=== PATIENT | female | born 1970 | race Caucasian/White ===

== ENCOUNTER 2022-02-28 10:10 | Outpatient (CLI) | payer OTHER, SELFPAY ==
--- NOTE | ~2022-02-28 | US_ITS ---
US breast LT complete DATE: 02/28/2022 10:41 INDICATION: Left breast microcalcifications TECHNIQUE: Real-time imaging of complete left breast including all 4 quadrants and subareolar areas. COMPARISON: 01/07/2022 diagnostic left mammogram 11/24/2021 bilateral screening mammogram FINDINGS: The patient initially presented for stereotactic biopsy based upon mammogram examinations p erformed at [facility]. There are multiple clusters of grouped microcalcifications in the left breast, particularly in the ou ter mid left breast. These have the appearance of calcified fibroadenomas. In order to determine if there were any suspicious masses and to better determine which if any of the se clusters of microcalcifications to biopsy, ultrasound examination was requested and is herewith pe rformed and reported. No suspicious mass or suspicious shadowing is detected throughout the left breast. No circumscribed f ibroadenomas are identified. IMPRESSION: BI-RADS Category 4: Suspicious abnormality; biopsy should be considered Recommendation: I would recommend proceeding with stereotactic biopsy of some care support representative microcal cifications of the left breast Reviewed, dictated and finalized at [facility]. Reviewed, dictated and finalized at location A. TING AND PUMPING SUPERVISOR IMPRESSION: BI-RADS Category 4: Suspicious abnormality; biopsy should be consid ered Recommendation: I would recommend proceeding with stereotactic biopsy of some r epresentative microcalcifications of the left breast
== END 2022-02-28 10:11 | disposition home or self-care (01) ==
PROVIDERS: PCP Physician Assistant; Visit Provider Physician Assistant
DX: R92.8 Other abnormal and inconclusive findings on diagnostic imaging of breast (principal)
CPT/HCPCS: 76641

== ENCOUNTER 2022-03-12 11:13 | Outpatient (CLI) | payer OTHER, SELFPAY ==
--- NOTE | ~2022-03-12 | MM_ITS ---
EXAMINATION: MM stereotactic specimen LT, MM post biopsy diagnostic LT, MM stereotactic bx LT, Specim en Radiograph, Tissue Marker Clip Placement, Unilateral Mammogram DATE: 03/12/2022 13:07 (accession [id number]), 03/12/2022 13:06 (accession [id number]), 03/12 13:09 (accession [id number]) INDICATION: Abnormal mammogram: Indeterminate microcalcifications, lower outer quadrant. TECHNIQUE AND FINDINGS: The risks and potential benefits of the procedure were discussed with the patient and written informe d consent was obtained. Timeout procedure was performed. The patient was placed in the prone position on the dedicated stereotactic table with the left breast in lateral medial compression, and the area of interest was localized and targeted utilizing digital imaging with stereotaxis. After sterile preparation of the skin, 2 % lidocaine was utilized for local anesthesia at the skin pu ncture site and 2 % lidocaine with epinephrine was utilized for deeper local anesthesia/is about the biopsy site. A 9G RightScale vacuum assisted biopsy needle was advanced to the level of the calcification of interest from a lateral approach utilizing stereotactic guidance and a total of tissue core biops ies were obtained. A specimen radiograph demonstrates that the calcifications of interest are included within the tissue cores. A tissue marker clip was then placed at the biopsy site. A digital mammographic exposure co nfirmed the successful deployment of the biopsy marker. The needle was removed and hemostasis was ac hieved. A sterile bandage was applied. The patient tolerated the procedure well and there is no felisha dence of significant immediate complication. The patient was given verbal as well as written postpro cedural instructions prior to discharge from the department. Tissue cores were submitted to surgical pathology for histologic analysis. A 2-view right unilateral digital mammogram was obtained post procedure, demonstrating the tissue mar ker clip in expected position. IMPRESSION: 1. Successful stereotactic biopsy of indeterminate microcalcifications, lower outer left breast, fo llowed by tissue marker clip placement. Please refer to pathology report for histologic analysis. Reviewed, dictated and finalized at [facility]. Reviewed, dictated and finalized at location A. RMATION ANALYST IMPRESSION: 1. Successful stereotactic biopsy of indeterminate microcalcifications, lower outer left breast, followed by tissue marker clip placement. Please refer to pathology report for histologic analysis. IMPRESSION: 1. Successful stereotactic biopsy of indeterminate microcalcifications, lower outer left breast, followed by tissue marker clip placement. Please refer to pathology report for histologic analysis.
== END 2022-03-12 11:14 | disposition home or self-care (01) ==
PROVIDERS: PCP Physician Assistant; Visit Provider Physician Assistant
DX: N63.20 Unspecified lump in the left breast, unspecified quadrant (principal)
CPT/HCPCS: 19081; 77065; 88305; A4648

== ENCOUNTER 2022-07-19 08:57 | Outpatient (CLI) | payer OTHER, SELFPAY ==
--- NOTE | ~2022-07-19 | US_ITS ---
EXAMINATION: US abdomen limited DATE: 07/19/2022 09:22 INDICATION: Abnormal liver function tests. TECHNIQUE: Multiple grayscale and Doppler ultrasound images of the abdomen were obtained. COMPARISON: Abdomen ultrasound 04/11/2018 FINDINGS: The visualized portions of the head and body of the pancreas are normal. There is diffuse h epatic steatosis. No liver surface nodularity. There is normal flow in main portal vein. The gallblad ramos is normal in size. No gallstones or gallbladder wall thickening. There is no sonographic Narayan s ign. The common duct is normal and measures 3 mm. IMPRESSION: 1. Diffuse hepatic steatosis. Reviewed, dictated and finalized at location A.
== END 2022-07-19 08:58 | disposition home or self-care (01) ==
PROVIDERS: PCP Physician Assistant; Visit Provider Physician Assistant
DX: R74.8 Abnormal levels of other serum enzymes (principal); K76.0 Fatty (change of) liver, not elsewhere classified
CPT/HCPCS: 76705

== ENCOUNTER 2022-08-14 10:02 | Outpatient (CLI) | payer OTHER, SELFPAY ==
--- NOTE | ~2022-08-14 | US_ITS ---
US breast LT limited DATE: 08/14/2022 10:26 INDICATION: Six-month follow-up requested for 02/28/2022 left complete breast ultrasound examination TECHNIQUE: High-resolution ultrasound imaging of complete left breast including all 4 quadrants and s ubareolar area COMPARISON: 02/28/2022 complete left breast ultrasound 03/12/2022 stereotactic breast biopsy FINDINGS: Prominent ducts are again noted. No suspicious mass or shadowing, cyst or estimated sonogra phic abnormality is detected. IMPRESSION: BI-RADS Category 1: Negative Reviewed, dictated and finalized at [facility]. Reviewed, dictated and finalized at location A.
== END 2022-08-14 10:03 | disposition home or self-care (01) ==
PROVIDERS: PCP Physician Assistant; Visit Provider Physician Assistant
DX: R92.8 Other abnormal and inconclusive findings on diagnostic imaging of breast (principal)
CPT/HCPCS: 76642

== ENCOUNTER 2022-10-26 11:34 | Outpatient (CLI) | payer OTHER, SELFPAY ==
--- NOTE | ~2022-10-26 | XR_ITS ---
Right Hand Technique: PA, oblique, and lateral views were obtained. Clinical History: Pain Findings: No acute fracture or dislocation is seen. Osseous alignment is anatomic. Joint spaces are p reserved. Soft tissues are unremarkable. Impression: Unremarkable right hand. Reviewed, dictated and finalized at location M. Impression: Unremarkable right hand.
--- NOTE | ~2022-10-26 | XR_ITS ---
Left Hand Technique: PA, oblique, and lateral views were obtained. Clinical History: Pain Findings: No acute fracture or dislocation is seen. Osseous alignment is anatomic. Joint spaces are p reserved. Soft tissues are unremarkable. Impression: Unremarkable left hand. Reviewed, dictated and finalized at location M. Impression: Unremarkable left hand.
== END 2022-10-26 11:35 | disposition home or self-care (01) ==
PROVIDERS: PCP Physician Assistant; Visit Provider Physician Assistant
DX: M79.641 Pain in right hand (principal); M25.561 Pain in right knee
CPT/HCPCS: 73130; 73562

== ENCOUNTER 2022-11-15 09:35 | Outpatient (CLI) | payer OTHER, SELFPAY ==
--- NOTE | ~2022-11-15 | XR_ITS ---
Lumbosacral Spine: AP and lateral views Clinical History: Pain Findings: The normal lordotic curve is maintained. No fracture or subluxation evident. There is poste rior fusion from L4 to L5, with bilateral rods and transpedicular screws present. There is moderate t o advanced facet arthropathy from L3 through S1. The sacroiliac joints are normally outlined. Impression: Posterior fusion from L4 to L5, as detailed above. Facet joint arthropathy, as detailed above. Reviewed, dictated and finalized at location M. Impression: Posterior fusion from L4 to L5, as detailed above. Facet joint arthropathy, as detailed above.
== END 2022-11-15 09:36 | disposition home or self-care (01) ==
PROVIDERS: PCP Physician Assistant; Visit Provider Physician Assistant
DX: M48.061 Spinal stenosis, lumbar region without neurogenic claudication (principal); M47.816 Spondylosis without myelopathy or radiculopathy, lumbar region
CPT/HCPCS: 72100

== ENCOUNTER 2022-11-21 13:27 | Outpatient (CLI) | payer OTHER, SELFPAY ==
--- NOTE | ~2022-11-21 | MM_ITS ---
EXAMINATION: MM screening tosha BI w ozzie HISTORY: Screening mammogram, family history of breast cancer in her mother. TECHNIQUE: Craniocaudal and mediolateral oblique 3-D tomosynthesis images were obtained and synthetic 2-D images were generated. CAD analysis was submitted and interpreted. COMPARISON: 12/21/2021, 12/25/2017, 12/13/2017 BREAST PARENCHYMAL COMPOSITION: The breasts are extremely dense, which lowers the sensitivity of mamm ography. FINDINGS: Scattered benign-appearing calcifications are present. No suspicious mass, calcification, o r architectural distortion are identified in either breast to suggest malignancy. There has been no s uspicious interval change. IMPRESSION: 1. No mammographic evidence of malignancy. 2. Recommend routine screening mammography in one year. BI-RADS Category 2: Benign finding(s). Reviewed, dictated and finalized at location A.
== END 2022-11-21 13:28 | disposition home or self-care (01) ==
LOC: ANHIMG 13:29
PROVIDERS: PCP Physician Assistant; Visit Provider Physician Assistant
DX: Z12.31 Encounter for screening mammogram for malignant neoplasm of breast (principal)
CPT/HCPCS: 77063; 77067

== ENCOUNTER 2023-01-25 10:54 | Outpatient (CLI) | payer OTHER, SELFPAY ==
--- NOTE | ~2023-01-25 | CT_ITS ---
EXAMINATION: CT lumbar spine wo con DATE: 01/25/2023 12:42 INDICATION: Lumbar radiculopathy. TECHNIQUE: Computed tomography (CT) of the lumbar spine was performed without intravenous contrast. A utomated exposure control and iterative reconstruction technique were employed. The dose-length produ ct was 685.83 mGy-cm. COMPARISON: Lumbar spine radiographs 11/15/2022 FINDINGS: Bone alignment is normal. There is mild chronic anterior wedging of T11 and L5 vertebral machelle dies. There are changes of posterior fusion procedure L4-L5 with pedicle screws. Intervertebral disc heights are normal. The following disc levels are specifically discussed: L1-L2: The disc does not extend beyond the endplate margin. There is mild bilateral facet joint osteo arthritis. There is no neural foraminal stenosis. There is no central canal stenosis. L2-L3: The disc is bulging. There is moderate bilateral facet joint osteoarthritis. There is mild dalila ateral neural foraminal stenosis. There is no central canal stenosis. L3-L4: The disc is bulging. There is severe bilateral facet joint osteoarthritis. There is moderate b ilateral neural foraminal stenosis. There is mild central canal stenosis. L4-L5: The disc is bulging. There is mild bilateral facet joint hypertrophy. There is mild bilateral neural foraminal stenosis. There is mild central canal stenosis with posterior decompression. L5-S1: The disc is bulging. There is moderate bilateral facet joint osteoarthritis. There is mild dalila ateral neural foraminal stenosis. There is mild central canal stenosis. IMPRESSION: 1. Mild lumbar spondylosis. 2. Posterior fusion procedure at L4-L5. Reviewed, dictated and finalized at location E. LOPE CUTTER
== END 2023-01-25 10:55 | disposition home or self-care (01) ==
PROVIDERS: PCP Physician Assistant; Visit Provider Neurological Surgery
DX: M47.26 Other spondylosis with radiculopathy, lumbar region (principal); Z98.1 Arthrodesis status
CPT/HCPCS: 72131

== ENCOUNTER 2023-02-02 09:32 | Outpatient (CLI) | payer OTHER, SELFPAY ==
--- NOTE | ~2023-02-02 | MR_ITS ---
MRI of the lumbar spine Clinical History: Radiculopathy Technique: Axial T2-weighted images, and sagittal T1-weighted, T2-weighted, and STIR images were acqu ired. Findings: There is no acute fracture or subluxation of the lumbar spine. There is posterior fusion fr om L4 to L5, with bilateral rods and transpedicular screws in place. Associated posterior decompressi on at L4-L5 likely present. No suspicious bone marrow signal abnormality seen. At L1-L2, there is no disc bulge or herniation. There is mild facet arthropathy. No central canal juanita nosis or neural foraminal narrowing. At L2-L3, there is minimal disc bulge with moderate facet arthropathy. No central canal stenosis. The re is minimal left neural foraminal narrowing. Right neural foramen preserved. At L3-L4, there is mild disc bulge with advanced facet arthropathy. There is mild central canal steno sis/thecal sac compression, with mild to moderate left neural foraminal narrowing. Right neural khadra en minimally narrowed. At L4-L5, there is no central canal stenosis. Bilateral neural foramina are preserved. At L5-S1, there is minimal disc bulge. No central canal stenosis or left neural foraminal narrowing. Probable minimal right neural foraminal narrowing. Paravertebral soft tissues are unremarkable. Impression: Mild central canal stenosis/thecal sac compression L3-L4, with mild to moderate left neural foraminal narrowing at this level. Additional mild degenerative changes, as above. Posterior fusion from L4 to L5. Reviewed, dictated and finalized at [facility]. A R SPECIALIST Impression: Mild central canal stenosis/thecal sac compression L3-L4, with mild to moderate left neural foraminal narrowing at this level. Additional mild degenerative changes, as above. Posterior fusion from L4 to L5.
== END 2023-02-02 09:33 | disposition home or self-care (01) ==
PROVIDERS: PCP Physician Assistant; Visit Provider Neurological Surgery
DX: M48.061 Spinal stenosis, lumbar region without neurogenic claudication (principal); M43.26 Fusion of spine, lumbar region; G95.29 Other cord compression
CPT/HCPCS: 72148

== ENCOUNTER 2023-02-09 22:55 | Emergency (ER) | payer OTHER, SELFPAY ==
--- NOTE | ~2023-02-09 | XR_ITS ---
XR ribs LT 2V w CXR 2V DATE: 02/10/2023 00:43 INDICATION: Fall. Lower anterior and posterior rib pain, lateral bruising TECHNIQUE: PA and lateral chest. 3 views of the left ribs. COMPARISON: None FINDINGS: Old healed right lateral sixth and seventh rib fractures. Subtle nondisplaced lateral left eighth rib fracture and possible very subtle nondisplaced left seven th and ninth rib fractures. There is bibasilar mild atelectasis likely due to splinting due to chest pain due to the rib fracture s. The lungs otherwise appear clear. Normal heart size. Mild aortic unfolding. No hilar or mediastinal enlargement. No pleural effusion or pneumothorax. Pedicle screws and rods are noted at L4. IMPRESSION: Subtle recent left atrium possibly seventh and ninth lateral rib fractures Bibasilar atelectasis Reviewed, dictated and finalized at location A. WORKER IMPRESSION: Subtle recent left atrium possibly seventh and ninth lateral rib fr actures Bibasilar atelectasis
[2023-02-09 22:59] VITALS: BP 151/80; PULSE 84; RESP 20; TEMP 36.7; O2SAT 97
--- NOTE | 2023-02-10 01:37 | ED.FALL ---
HPI - Fall General Chief Complaint: Fall Stated Complaint: fall Time Seen by Provider: 02/10/23 01:20 Source: patient Mode of arrival: wheelchair Limitations: no limitations History of Present Illness HPI Narrative: This is a 52 year old female that presents to the ER for left sided rib pain after a fall. Reports her walker slipped and she fell onto her left side. She did not hit her head or lose consciousness. Reports bruising and pain to the left ribs. Denies shortness of breath, abdominal pain or vomiting. Related Data Allergies Allergy/AdvReac Type Severity Reaction Status Date / Time clindamycin Allergy Unknown Hives / Verified 02/09/23 23:51 Red Face Review of Systems Review of Systems: CONSTITUTIONAL: Denies fever CARDIOVASCULAR: Reports chest/rib pain RESPIRATORY: Denies dyspnea. All systems reviewed & are unremarkable except as noted in HPI and below PMFSH Past Medical History Medical History (Updated 02/10/23 @ 05:04 by Anupama Degroot PA-C) History of gastroesophageal reflux (GERD) History of hyperlipidemia History of hypertension Social History Social History (Updated 02/10/23 @ 01:40 by Anupama Degroot PA-C) Smoking status: Current every day smoker Exam Narrative: GENERAL: Well-appearing, well-nourished, and in no acute distress. HEAD: Normocephalic, atraumatic. EYES: EOMI. NECK: No midline spinal tenderness CHEST: Clear to auscultation. No respiratory distress. No wheezes rales or rhonchi. Tender to palpation of left mid/lateral ribs HEART: Regular rate and rhythm. No murmur heard. Normal peripheral pulses. ABDOMINAL: Soft, nontender BACK: No midline spinal tenderness EXTREMITIES: Normal range of motion. No edema. SKIN: Warm, dry, no rash. NEURO: No focal deficits. Alert and oriented x3. PSYCH: Normal mood and affect Course Course Emergency Course: Patient updated on workup and agrees with plan of care Vital Signs Vital signs: Vital Signs Temperature 98.0 F 02/09/23 22:59 Pulse Rate 84 02/09/23 22:59 Respiratory Rate 20 02/09/23 22:59 Blood Pressure 151/80 H 02/09/23 22:59 Pulse Oximetry 97 02/09/23 22:59 Oxygen Delivery Room Air 02/09/23 22:59 Temperature 98.0 F 02/09/23 22:59 Pulse Rate 97 02/10/23 01:54 Respiratory Rate 18 02/10/23 01:54 Blood Pressure 111/68 02/10/23 01:54 Pulse Oximetry 92 02/10/23 01:54 Oxygen Delivery Room Air 02/09/23 23:48 MDM - Fall MDM Narrative Medical decision making narrative: Patient presents the emergency department for left-sided rib pain after a ground level fall. Patient's vitals are stable. She is in no acute distress. Oxygen saturation is normal on room air. Left rib/chest x-ray shows nondisplaced 7th and 8th rib fractures. Patient updated on workup. Instructed on further care and use of incentive spirometer. She is to follow up with primary provider. She was given warnings to return to the ER Differential Diagnosis Differential diagnosis: Likely other (rib fracture, rib contusion) Imaging Data Radiologist's impression: Left ribs/chest x-ray: Hypoinflation. Left 7th and 8th rib nondisplaced fractures. No pneumothorax. Trace left pleural effusion. Critical Care Time Critical Care Time Critical Care Time: No Discharge Plan Discharge Clinical Impression: Left rib fracture Qualifiers: Encounter type: initial encounter Rib fracture type: multiple ribs Fracture type: closed Qualified Code(s): S22.42XA - Multiple fractures of ribs, left side, initial encounter for closed fracture Patient Disposition: Home, Self-Care Condition: Stable Instructions: How to Use an Incentive Spirometer (ED), Rib Fracture (ED) Additional Instructions: Return to the ER if you experience fever, cough, shortness of breath, or any other symptoms that are concerning to you Rest, use ice, take anti-inflammatories (Aleve, Ibuprofen, Naproxen, etc) or Tylenol as needed for pain as well
[2023-02-10] MEDS: LIDOCAINE 5% PATCH 1 PATCH TRANSDERM (01:52)
[2023-02-10 01:54] VITALS: BP 111/68; PULSE 97; RESP 18; O2SAT 92
[2023-02-10 05:29] VITALS: BP 125/62; PULSE 84; RESP 14; O2SAT 95
== END 2023-02-10 05:29 | disposition home or self-care (01) ==
PROVIDERS: Emergency Provider Physician Assistant; PCP Physician Assistant
DX: S22.42XA Multiple fractures of ribs, left side, initial encounter for closed fracture (principal); K21.9 Gastro-esophageal reflux disease without esophagitis; I10 Essential (primary) hypertension; E78.5 Hyperlipidemia, unspecified; W01.0XXA Fall on same level from slipping, tripping and stumbling without subsequent striking against object, initial encounter
CPT/HCPCS: 71046; 71100; 99283; A9270

== ENCOUNTER 2023-03-06 12:18 | Outpatient (CLI) | payer OTHER, SELFPAY ==
--- NOTE | 2023-03-06 14:00 | NEURO_ITS ---
Impression: # Complains of pain in back. Status post lower back surgery. # Normal Nerve Conduction Study including motor, sensory nerves and F-waves. # Normal needle/EMG exam without fibs, myotonia or denervation potentials. # Clinical correlation recommended. Nerve Conduction Studies Anti Sensory Summary Table Stim Site NR Peak (ms) P-T Amp (?V) Site1 Site2 Delta-P (ms) Dist (cm) Manuel (m/s) Left Saphenous Anti Sensory (Ant Med Mall) 14cm 3.3 19.7 14cm Ant Med Mall 3.3 0.0 Right Saphenous Anti Sensory (Ant Med Mall) 14cm 3.3 4.4 14cm Ant Med Mall 3.3 0.0 Left Sup Fibular Anti Sensory (Ant Lat Mall) 14 cm 3.4 22.0 14 cm Ant Lat Mall 3.4 16.0 47 Right Sup Fibular Anti Sensory (Ant Lat Mall) 14 cm 3.1 29.2 14 cm Ant Lat Mall 3.1 16.0 52 Left Sural Anti Sensory (Lat Mall) Calf 3.3 19.1 Calf Lat Mall 3.3 16.0 48 Right Sural Anti Sensory (Lat Mall) Calf 3.0 8.3 Calf Lat Mall 3.0 16.0 53 Motor Summary Table Stim Site NR Onset (ms) O-P Amp (mV) Site1 Site2 Delta-0 (ms) Dist (cm) Manuel (m/s) Left Peroneal Motor (Vastus Med) Ankle 4.1 0.3 Popit Ankle 7.3 37.0 51 Popit 11.4 1.1 Right Peroneal Motor (Vastus Med) Ankle 4.2 2.7 Popit Ankle 7.5 36.0 48 Popit 11.7 3.2 Left Tibial Motor (Abd Falk Brev) Ankle 4.5 8.1 Knee Ankle 7.5 39.0 52 Knee 12.0 5.0 Right Tibial Motor (Abd Falk Brev) Ankle 4.6 3.2 Knee Ankle 8.2 39.0 48 Knee 12.8 8.0 F Wave Studies NR F-Lat (ms) L-R F-Lat (ms) Left Peroneal (Mrkrs) (EDB) 52.66 1.40 Right Peroneal (Mrkrs) (EDB) 51.26 1.40 Left Tibial (Mrkrs) Run #2 (Abd Hallucis) 51.79 0.70 Right Tibial (Mrkrs) (Abd Hallucis) 51.09 0.70 EMG Side Muscle Nerve Root Ins Act Fibs Amp Dur Recrt Comment Right AntTibialis Dp Br Fibular L4-5 Nml Nml Nml Nml Nml Right Gastroc Tibial S1-2 Nml Nml Nml Nml Nml Right Fibularis Long Sup Br Fibular L5-S1 Nml Nml Nml Nml Nml Right Flex Dig Long Tibial L5-S2 Nml Nml Nml Nml Nml Right Ext Dig Brev Dp Br Fibular L5, S1 Nml Nml Nml Nml Nml Left AntTibialis Dp Br Fibular L4-5 Nml Nml Nml Nml Nml Left Gastroc Tibial S1-2 Nml Nml Nml Nml Nml Left Fibularis Long Sup Br Fibular L5-S1 Nml Nml Nml Nml Nml Left Flex Dig Long Tibial L5-S2 Nml Nml Nml Nml Nml Left Ext Dig Brev Dp Br Fibular L5, S1 Nml Nml Nml Nml Nml MTDD
== END 2023-03-06 12:19 | disposition home or self-care (01) ==
LOC: ANHNEURO 12:21
PROVIDERS: PCP Physician Assistant; Visit Provider Neurological Surgery
DX: M54.16 Radiculopathy, lumbar region (principal)
CPT/HCPCS: 95886; 95911

== ENCOUNTER 2023-04-04 10:31 | Outpatient (CLI) | payer OTHER, SELFPAY ==
--- NOTE | ~2023-04-04 | MMUS_ITS ---
EXAMINATION: MM diagnostic tosha LT w ozzie, US breast LT limited HISTORY: Palpable lump at the 6:00 location in the left breast with left nipple discharge TECHNIQUE: Craniocaudal, mediolateral, and mediolateral oblique 3-D tomosynthesis images of the left breast were performed and synthetic 2-D images were generated. CAD analysis was submitted and interpr eted. High resolution limited left breast ultrasound was performed. COMPARISON: 11/21/2022, 08/14/2022, 02/28/2022, 12/21/2021 BREAST PARENCHYMAL COMPOSITION: The breasts are extremely dense, which lowers the sensitivity of mamm ography. FINDINGS: MAMMOGRAPHIC FINDINGS: No suspicious mass, calcification, or architectural distortion are identified to suggest malignancy. There has been no suspicious interval change. No mammographic correlate is identified for the reporte d palpable lump at the 6:00 location in the breast. ULTRASOUND: There chronically dilated subareolar ducts which do not demonstrate significant change since the 02/28 comparison. IMPRESSION: 1. No specific mammographic or sonographic correlate is identified for the reported palpable abnormal ity of concern. Further evaluation at this time should be based on clinical assessment. Continued fol low-up physical examination is recommended. In addition, consider breast surgical evaluation given daniela de leon's history of left nipple discharge. 2. Recommend routine screening mammography. BI-RADS Category 2: Benign finding(s). Reviewed, dictated and finalized at location A. E MANAGEMENT TRAINEE IMPRESSION: 1. No specific mammographic or sonographic correlate is identified for the repo rted palpable abnormality of concern. Further evaluation at this time should be based on clinical assessment. Continued follow-up physical examination is daniel mmended. In addition, consider breast surgical evaluation given patient's histo ry of left nipple discharge. 2. Recommend routine screening mammography. BI-RADS Category 2: Benign finding(s).
== END 2023-04-04 10:32 | disposition home or self-care (01) ==
PROVIDERS: PCP Physician Assistant; Visit Provider Physician Assistant
DX: N63.0 Unspecified lump in unspecified breast (principal)
CPT/HCPCS: 76642; 77061; 77065; G0279

== ENCOUNTER 2023-05-07 09:32 | Outpatient (CLI) | payer OTHER, SELFPAY ==
--- NOTE | ~2023-05-07 | MR_ITS ---
MR breast BI wo/w con 05/07/2023 11:20 CDT INDICATION: Palpable left breast lump TECHNIQUE: MRI of the breasts perform using standard protocol pre-and post IV contrast with the follo wing sequences: Axial T2 STIR, axial T1, axial vibrant T1 with fat suppression precontrast and multip hasic postcontrast. 14 cc MultiHance administered intravenously. COMPARISON: Comparison to multiple prior studies sequentially, with oldest reviewed study dated 12/20. FINDINGS: There are no abnormalities on the precontrast sequences. There is moderate symmetric segmen jaylene background parenchymal enhancement. No enhancing lesions following contrast administration. No areas of enhancement meeting threshold criteria on CAD analysis. No evidence of signal abnormalities in the axillary or internal mammary node distributions. LEFT BREAST: No signal abnormalities on precontrast sequences. There is moderate symmetric segmental background parenchymal enhancement. No enhancing lesions following contrast administration. No ar eas of enhancement meeting threshold criteria on CAD analysis. No evidence of signal abnormalities in the axillary or internal mammary node distributions.] IMPRESSION: 1: Right breast: Negative. No evidence of malignancy. BI-RADS category 1. Recommend annual mammo graphy follow-up. 2: Left breast: Negative. No evidence of malignancy. BI-RADS category 1. Recommend annual mammogr aphy follow-up. Follow-up MRI may be useful for supplementing mammographic evaluation as clinically indicated. Reviewed, dictated and finalized at location A. IMPRESSION: 1: Right breast: Negative. No evidence of malignancy. BI-RADS category 1. Recommend annual mammography follow-up. 2: Left breast: Negative. No evidence of malignancy. BI-RADS category 1. Re commend annual mammography follow-up. Follow-up MRI may be useful for supplementing mammographic evaluation as clinic ally indicated.
== END 2023-05-07 09:33 | disposition home or self-care (01) ==
PROVIDERS: PCP Physician Assistant; Visit Provider Surgery
DX: N64.52 Nipple discharge (principal)
CPT/HCPCS: 77049; A9577; C8908

== ENCOUNTER 2023-05-21 11:07 | Outpatient (CLI) | payer OTHER, SELFPAY ==
--- NOTE | 2023-05-21 11:18 | ECG_ITS ---
Measurements Intervals [place] Rate: 79 P: 27 DC: 141 QRS: 24 QRSD: 96 T: 46 QT: 412 QTc: 472 Interpretive Statements SINUS RHYTHM MINIMAL ST DEPRESSION [0.025+ mV ST DEPRESSION] NO PREVIOUS ECG AVAILABLE FOR COMPARISON Electronically Signed On 05-21-2023 12:37:25 CDT by Everardo Wynne M.D.
== END 2023-05-21 11:08 | disposition home or self-care (01) ==
LOC: ANHSURGERY 11:14
PROVIDERS: PCP Physician Assistant; Visit Provider Surgery
DX: I10 Essential (primary) hypertension (principal); Z01.818 Encounter for other preprocedural examination
CPT/HCPCS: 93005

== ENCOUNTER 2023-05-22 02:10 | Day surgery (SDC) | payer OTHER, SELFPAY ==
--- NOTE | 2023-05-20 16:44 | PC.NURSE ---
Report to the Outpatient Waiting Room, entrance under the green pavilion located off [facility], at time __1030 on date __[id number] . Planned Procedure Time: __1230pm . Time changes happen often and if your time is changed the preop area will call you the afternoon before. - You and your visitor will be asked to self-screen and do not enter if you have any COVID symptoms. - A mask is optional within the hospital at this time. Patients may have clear liquids (water, carbonated beverages, clear teas, apple juice) until 3 hours prior to surgery with a maximum of 20 ounces. - No food from midnight until time of surgery - Take the following medications with a SIP of water the morning of surgery: ___none (patient to hold medications she takes daily) Please no make-up, nail venezuelan, hairspray, perfume, deodorant, or body powder the day of surgery. No jewelry (including any body piercings) or valuables the day of surgery, leave them at home. Please take a shower or bath the night before. Children are encouraged to wear pajamas. - Jewelry must be removed prior to entering the operating room. Rings and piercings that are not removed may be cut off. - The hospital will not accept responsibility for valuables. - Please leave all valuables, including medications, at home the day of surgery. If you are going home after surgery, a licensed new car driver must drive you home. - NO public transportation without another adult if you receive anesthesia. - We recommend that an adult stay with you for 24 hours following discharge. - We also recommend that you do not drive, make important decision, drink alcoholic beverages, or take any drugs that were not prescribed by your health care provider for at least 24 hours after your discharge time. Follow any additional instructions given to you from your surgeon. If you or anyone in your household have experienced Covid symptoms in the past week, please notify your surgeon or the nurse liaison at the phone number below for possible testing. Telephone instructions given to __Tori (patient) and asked if any additional questions and then verbalized understanding. Patient advised to call surgeon office or pre surgery nurse liaison [phone] if any additional questions.
[2023-05-20 17:02] VITALS: BMI 28.3
[2023-05-22] VITALS (8 sets, daily range): BP systolic 99–143; BP diastolic 53–69; PULSE 75–99; RESP 15–18; TEMP 36.7–37.1; O2SAT 95–100
--- NOTE | 2023-05-22 10:18 | WPDHPUPDATE1 ---
History and Physical Update Update Date/Time: 05/22/23 10:18 History and Physical has been reviewed, including an updated exam of the patient. There are NO changes in the patient's condition. Risks, benefits, and alternatives have been discussed and questions answered. Patient agrees to proceed with procedure.
--- NOTE | 2023-05-22 11:50 | WPDHPUPDATE1 ---
History and Physical Update Update Date/Time: 05/22/23 11:50 History and Physical has been reviewed, including an updated exam of the patient. There are NO changes in the patient's condition. Risks, benefits, and alternatives have been discussed and questions answered. Patient agrees to proceed with procedure.
--- NOTE | 2023-05-22 11:54 | WPDANESEPPF ---
Anes - Initial Pre Proc Eval Procedure: Operation Date: 05/22/23 12:30 Proposed Procedures p Excisional Biopsy of Left Mammary Duct, Possible Total Duct Excision - Aidee Yousif MD Date/Time: 05/22/23 11:54 Surgeon: Aidee Yousif MD Pre Op Diagnosis: Lt Breast Mass Patient Data Age: 52 Gender: F Height: 1.6 m Weight: 72.57 kg Last Vital Signs Temp 37.1 C 05/22/23 11:49 Pulse 82 05/22/23 11:49 Resp 18 05/22/23 11:49 BP 143/68 H 05/22/23 11:49 Pulse Ox 100 05/22/23 11:49 O2 Del Method Room Air 05/22/23 11:49 Allergies Allergy/AdvReac Type Severity Reaction Status Date / Time clindamycin Allergy Unknown Hives / Verified 05/22/23 10:50 Red Face Home Medications Medication Instructions Recorded Confirmed Type aspirin 81 mg tablet,delayed 81 mg PO DAILY 04/23/23 05/22/23 History release atorvastatin 20 mg tablet 20 mg PO DAILY 04/23/23 05/22/23 History cetirizine 10 mg tablet 10 mg PO DAILY 04/23/23 05/22/23 History famotidine 20 mg tablet 20 mg PO DAILY 04/23/23 05/22/23 History losartan 25 mg tablet 25 mg PO DAILY 04/23/23 05/22/23 History tramadol 50 mg tablet 50 mg PO Q6H PRN pain #8 tabs 05/22/23 Rx Patient hx anesthesia problems: none Family hx anesthesia problems: none Results Review: All pre-operative results and documents have been reviewed as part of the pre-operative evaluation. [facility] Past Medical History Medical History (Updated 04/23/23 @ 10:40 by Aidee Yousif MD) History of gastroesophageal reflux (GERD) History of hyperlipidemia History of hypertension Family History Family History (Updated 04/23/23 @ 12:15 by Amanda Jansen CMA) Father Diabetes mellitus Hypertension Cerebrovascular accident Mother Diabetes mellitus Hypertension Heart disease Cerebrovascular accident Grandparent Diabetes mellitus Hypertension Social History Social History (Updated 04/23/23 @ 10:10 by Amanda Jansen CMA) Years smoked: 35 Smoking status: Current every day smoker Tobacco type: cigarettes Second hand tobacco smoke exposure: Yes Alcohol intake: current Drinks per week: 7 Alcohol use details: Cocktail Substance use: current Substance use type: does not use Do You Feel Safe in your Home?: Yes Lack of Transportation: No Lack of Food: Never True Current Housing: I Have Housing Concerned About Future Housing: No Difficulty Paying Gas/Electric Bills: No Difficulty Paying for Meds: No Currently Unemployed: YES Education: High School Diploma/GED Difficulty w/ Childcare or Family Care: No Living arrangements: with family Spiritual care concerns: No Anes - Eval Final PreProcedure Day of Procedure 05/22/23 11:54 Patient weight: overweight Heart: regular rate and rhythm Lungs: clear to auscultation Airway: Mallampati scale class II Neurological: alert and oriented Last oral intake: >/= 8 hours ASA classification: III Emergent: no Anesthetic plan: proceed Anesthesia type and monitoring: general LMA and standard monitoring Results Review: All pre-operative results and documents have been reviewed as part of the pre-operative evaluation. Informed Consent: The patient's anesthetic plan and its attendant risks and benefits were discussed with the patient/family/POA. Questions were solicited and answers provided to the satisfaction of the patient/family/POA.
[2023-05-22] MEDS: LACTATED RINGERS 1,000 ML 30 ML IV CONT ×2 (12:05→13:40)
[2023-05-22] MEDS: ACETAMINOPHEN ELIXIR 325 MG/10.15 ML UDC 1000 MG PO (12:05)
[2023-05-22] MEDS: SCOPOLAMINE 1 MG PATCH 1 PATCH TRANSDERM (12:08)
[2023-05-22] MEDS: ceFAZolin 2 GM/D5W 50 ML 2 GM/50 ML BAG IVPB (12:15)
[2023-05-22] MEDS: LIDOCAINE HCL 1% LOCAL INJ 10 ML VIAL INFILTRATE (12:29)
[2023-05-22] MEDS: BUPIVACAINE/EPINEPHRINE 0.5% 30 ML VIAL 10 ML INFILTRATE (12:30)
--- NOTE | 2023-05-22 12:56 | SUR.OPER ---
1222 incision 1245 ischemia of breast tissue 1252 breast tissue taken to lap per PCT Emmanuel 1258 [place] in lab received breast tissue
--- NOTE | 2023-05-22 13:42 | W.PM.PROC2 ---
Procedure Note - Detailed Date of Procedure 05/22/23 Pre-op Diagnosis Left bloody nipple discharge Post-op Diagnosis Same Procedure Performed Left total duct excision Surgeon Aidee Yousif MD Vp Client Services Anca Jett PA-C Anesthesia General Description of Procedure Patient was identified in the pre-operative and taken to the operating room. She was laid supine in the operating table and sequential compression devices were applied. General anesthesia was induced without difficulty. The left chest area was prepped and draped in a sterile fashion. A small superior periareolar incision was made and dissection was carried down through the subcutaneous tissue towards the central mammary ducts. A small lacrimal probe was placed through the affected duct and observe on the underside of the nipple. Patient had several enlarged mammary ducts that were filled with dark blood and decision was made to proceed with a total duct excision. All the involved enlarged ducts were excised EN bloc as well as a palpable mass that patient had in the inferior aspect of the nipple-areolar complex. Once the specimen was completely excised was sent to pathology as a fresh specimen. The cavity was irrigated hemostasis was assured. A deep intramammary U-stitch was placed to approximate the central breast tissue to prevent the nipple inversion. The deep dermal layer was then approximated with interrupted 3-0 Vicryl followed by 4-0 Monocryl subcuticular fashion. Dermabond was applied followed by a sterile dressing and a surgical bra. Patient was awoken from anesthesia taken to the recovery area in stable condition. All needles, instruments, and sponge counts were correct as reported by the operating room staff. Patient tolerated the procedure well with no immediate complications. Estimated Blood Loss 5 Pathology Yes Complications No immediate complications Condition Stable Disposition PACU [facility] Billing Surgery - Charge Forward: Surgery Billing (CPT 92729)
== END 2023-05-22 15:16 | disposition home or self-care (01) ==
PROVIDERS: PCP Physician Assistant; Visit Provider Surgery
PROC: (CPT 19120; principal; 2023-05-22 12:30)
DX: D24.2 Benign neoplasm of left breast (principal); N60.12 Diffuse cystic mastopathy of left breast; I10 Essential (primary) hypertension; E78.5 Hyperlipidemia, unspecified; K21.9 Gastro-esophageal reflux disease without esophagitis; Z79.82 Long term (current) use of aspirin; F17.210 Nicotine dependence, cigarettes, uncomplicated
CPT/HCPCS: 19120; 88305; A9270; J0690; J1100; J2405; J2704; J3010; J7120; Q9968

== ENCOUNTER 2023-06-20 09:50 | Outpatient (CLI) | payer OTHER, SELFPAY ==
[2023-06-20 10:05] LABS: Basophils Percent Auto 0.3 % (0.2-1.2); Eosinophils Absolute Auto 0.1 K/mm3 (0-0.3); Eosinophils Percent Auto 1.5 % (0-4.4); Hematocrit 33.4 % (37.0-47.0); Immature Granulocyte Absolute 0.04 K/mm3 (0.00-0.031); Immature Granulocyte Percent A 0.4 % (0-0.5); Lymphocytes Percent Auto 15.6 % (18.3-44.2); Mean Corpuscular HGB Conc 32.9 g/dl (32-36); Mean Corpuscular Hemoglobin 32.3 pg (26-34); Mean Corpuscular Volume 97.9 fl (80-100); Mean Platelet Volume 9.1 fl (7.4-10.4); Monocytes Absolute Auto 0.6 K/mm3 (0.1-0.6); Monocytes Percent Auto 6.3 % (2.6-8.5); Neutrophils Absolute Auto 7.3 K/mm3 (1.3-6.7); Neutrophils Percent Auto 75.9 % (45.5-73.1); Platelet Count Result 272 k/mm3 (150-375); Red Blood Count 3.41 M/mm3 (4.2-5.4); Red Cell Distribution Width 20.2 % (11.5-14.5); White Blood Count 9.6 K/mm3 (4.5-10.0)
[2023-06-20 17:05] LABS: Alanine Aminotransferase 19 U/L (6-35); Albumin Level 4.5 g/dL (3.5-5.1); Alkaline Phosphatase 479 U/L (38-126); Anion Gap 10 mmol/L (4-12); Aspartate Amino Transferase 75 U/L (14-36); Bilirubin,Total 1.3 mg/dL (0.2-1.3); Blood Urea Nitrogen 7 mg/dL (7-17); Calcium 8.6 mg/dL (8.4-10.2); Carbon Dioxide 26 mmol/L (22-30); Chloride 103 mmol/L (98-107); Estimated Glomerular Filt Rate > 60; Glucose 138 mg/dL (65-110); Potassium 3.2 mmol/L (3.4-5.0); Sodium 139 mmol/L (137-145)
== END 2023-06-20 09:51 | disposition home or self-care (01) ==
LOC: ANHLAB 09:52
PROVIDERS: PCP Physician Assistant; Visit Provider Internal Medicine Hematology & Oncology
DX: M85.89 Other specified disorders of bone density and structure, multiple sites (principal)
CPT/HCPCS: 36415; 80053; 85025

== ENCOUNTER 2023-07-20 08:41 | Outpatient (CLI) | payer OTHER, SELFPAY ==
--- NOTE | ~2023-07-20 | DEXA_ITS ---
Bone Density Report Name: LETICIA PHIPPS Age: 52 Sex: Female Ethnicity: White Date of : 1970 Indication: postmenopausal; screening for osteoporosis; Referring Provider: CHELSIE GRIER Study: Bone densitometry was performed. Exam Date: July 20, 2023 Accession number: [id number] Bone Density: Region BMD T-score Z-score Classification AP Spine(L1, L2, L3) 0.909 -1.0 -0.1 Normal Femoral Neck (Left) 0.603 -2.2 -1.3 Osteopenia Total Hip (Left) 0.749 -1.6 -1.0 Osteopenia Femoral Neck (Right) 0.622 -2.0 -1.1 Osteopenia Total Hip (Right) 0.765 -1.5 -0.9 Osteopenia Total Hip Mean 0.757 -1.6 -1.0 Osteopenia World Health Organization criteria for BMD impression classify patients as: Normal (T-score at or above -1.0), Osteopenia (T-score between -1.0 and -2.5), or Osteoporosis (T-score at or below -2.5). 10-year Fracture Risk(1): Major Osteoporotic Fracture 9.0% Hip Fracture 2.5% Reported Risk Factors: [place] (), Neck BMD=0.603, BMI=28.8, smoking, alcohol use (1) FRAX(R) Version 3.08. Fracture probability calculated for an untreated patient. Fracture probability may be lower if the patient has received treatment. Clinical Information Provided by Patient: Smokes Has 3 or more alcoholic drinks per day Has used the following medications: Calcium Patient maximum height was 63 Menopause Age: 47 No regular weight bearing exercise Does not regularly consume dairy products Drinks caffeinated beverages Onset of menses at age 9 Number of children 3 Impression: The patient has low bone mass, based on the Left Femoral Neck T-score. The patient has an estimated ten-year risk of hip fracture of 2.5% and an estimated ten-year risk of major fracture of 9%, based on the WHO FRAX algorithm. The patient has risk factors, including: smoking, excessive alcohol use. Discussion: BONE DENSITY IS LOW AT ONE OR MORE SKELETAL SITES. This patient's lowest T-score is low at one or more skeletal sites. It meets the World Health Organization's (WHO) criteria for ?low bone mass? (T-score between -1.0 and -2.5). The patient's 10-year risk of fracture as calculated by FRAX is less than the threshold where pharmacological therapy is recommended by the National Osteoporosis Foundation (NOF). However, all treatment decisions require clinical judgment and consideration of individual patient factors, including patient preferences, comorbidities, previous drug use, risk factors not captured in the FRAX model (e.g., frailty, falls, vitamin D deficiency, increased bone turnover, interval significant decline in bone density) and possible under or overestimation of fracture risk by FRAX. The patient should follow a healthful lifestyle (good nutrition with adequate calcium and vitamin D, and appropriate weight-bearing exercise). Follow-Up: Consider repeating this study in 2 to 3 years to reassess this patie
== END 2023-07-20 08:42 | disposition home or self-care (01) ==
LOC: ANHIMG 08:45
PROVIDERS: PCP Physician Assistant; Visit Provider Internal Medicine Hematology & Oncology
DX: Z78.0 Asymptomatic menopausal state (principal); M85.89 Other specified disorders of bone density and structure, multiple sites
CPT/HCPCS: 77080

== ENCOUNTER 2023-11-04 10:20 | Outpatient (CLI) | payer OTHER, SELFPAY ==
[2023-11-04 10:53] LABS: Basophils Percent Auto 0.2 % (0.2-1.2); Eosinophils Absolute Auto 0.1 K/mm3 (0-0.3); Eosinophils Percent Auto 0.9 % (0-4.4); Hematocrit 30.6 % (37.0-47.0); Immature Granulocyte Absolute 0.11 K/mm3 (0.00-0.031); Immature Granulocyte Percent A 0.9 % (0-0.5); Lymphocytes Absolute Auto 1.83 K/mm3 (0.9-3.2); Lymphocytes Percent Auto 14.9 % (18.3-44.2); Mean Corpuscular HGB Conc 35.9 g/dl (32-36); Mean Corpuscular Hemoglobin 41.8 pg (26-34); Mean Corpuscular Volume 116.3 fl (80-100); Mean Platelet Volume 9.1 fl (7.4-10.4); Monocytes Absolute Auto 0.8 K/mm3 (0.1-0.6); Monocytes Percent Auto 6.7 % (2.6-8.5); Neutrophils Absolute Auto 9.4 K/mm3 (1.3-6.7); Neutrophils Percent Auto 76.4 % (45.5-73.1); Platelet Count Result 312 k/mm3 (150-375); Red Blood Count 2.63 M/mm3 (4.2-5.4); White Blood Count 12.3 K/mm3 (4.5-10.0)
[2023-11-04 12:40] LABS: Iron 153 ug/dL (37-170)
[2023-11-04 12:42] LABS: Alanine Aminotransferase 16 U/L (6-35); Alkaline Phosphatase 354 U/L (38-126); Anion Gap 12 mmol/L (4-12); Aspartate Amino Transferase 61 U/L (14-36); Bilirubin,Total 1.4 mg/dL (0.2-1.3); Blood Urea Nitrogen 9 mg/dL (7-17); Calcium 8.2 mg/dL (8.4-10.2); Carbon Dioxide 29 mmol/L (22-30); Chloride 95 mmol/L (98-107); Estimated Glomerular Filt Rate > 60; Glucose 125 mg/dL (65-110); Potassium 2.9 mmol/L (3.4-5.0); Sodium 136 mmol/L (137-145)
[2023-11-04 12:54] LABS: Percent Iron Saturation 48 % (20-50)
[2023-11-04 13:52] LABS: Folic Acid 2.8 ng/mL (2.76->20); Vitamin B12 > 1000.0 pg/mL (239-931)
== END 2023-11-04 10:21 | disposition home or self-care (01) ==
PROVIDERS: PCP Physician Assistant; Visit Provider Internal Medicine Hematology & Oncology
DX: D64.9 Anemia, unspecified (principal)
CPT/HCPCS: 36415; 80053; 82607; 82728; 82746; 83540; 83550; 85025

== ENCOUNTER 2023-12-04 10:38 | Outpatient (CLI) | payer OTHER, SELFPAY ==
--- NOTE | ~2023-12-04 | MMUS_ITS ---
EXAMINATION: MM diagnostic tosha BI w ozzie, US breast BI complete HISTORY: Or cystic breast disease TECHNIQUE: Additional 3-D tomosynthesis images of the breasts were performed and synthetic 2-D images were generated. CAD analysis was submitted and interpreted. High resolution bilateral complete breas t ultrasound was performed. COMPARISON: Comparison to multiple prior studies sequentially, with oldest reviewed study dated 04/2021. BREAST PARENCHYMAL COMPOSITION: Dense: The breasts are heterogeneously dense, which may obscure small masses FINDINGS: MAMMOGRAPHIC FINDINGS: There are no suspicious masses, calcifications or architectural distortion in either breast to sugges t malignancy. ULTRASOUND: Complete US of all 4 quadrants of the breast/s and retroareolar region was reviewed. Right breast: At 3:00, 3 cm from the nipple there is an 8 mm cyst. At 4:00, 4 cm from the nipple ther e is a slightly irregular hypoechoic mass with low level internal echoes measuring 11 x 5 x 5 mm, lik kenneth a cyst. Left breast: Normal heterogeneous echotexture without focal solid or cystic mass. IMPRESSION: 1. Probable benign complicated right breast cyst at 4:00, 4 cm from the nipple. 2. Recommend 6 month follow-up Limited right breast ultrasound BI-RADS category 3, probably benign findings. Reviewed, dictated and finalized at location B. IMPRESSION: 1. Probable benign complicated right breast cyst at 4:00, 4 cm from the nipple. 2. Recommend 6 month follow-up Limited right breast ultrasound BI-RADS category 3, probably benign findings.
== END 2023-12-04 10:39 | disposition home or self-care (01) ==
LOC: ANHIMG 10:41
PROVIDERS: PCP Physician Assistant; Visit Provider Internal Medicine Hematology & Oncology
DX: N60.12 Diffuse cystic mastopathy of left breast (principal); R92.8 Other abnormal and inconclusive findings on diagnostic imaging of breast
CPT/HCPCS: 76641; 77062; 77066; G0279

== ENCOUNTER 2024-01-03 11:18 | Outpatient (CLI) | payer MEDICARE, MEDICAID, SELFPAY ==
[2024-01-03 11:53] LABS: Basophils Percent Auto 0.3 % (0.2-1.2); Eosinophils Absolute Auto 0.1 K/mm3 (0-0.3); Eosinophils Percent Auto 0.9 % (0-4.4); Hematocrit 30.8 % (37.0-47.0); Immature Granulocyte Absolute 0.05 K/mm3 (0.00-0.031); Immature Granulocyte Percent A 0.4 % (0-0.5); Lymphocytes Absolute Auto 1.38 K/mm3 (0.9-3.2); Lymphocytes Percent Auto 12.4 % (18.3-44.2); Mean Corpuscular HGB Conc 35.7 g/dl (32-36); Mean Corpuscular Volume 117.6 fl (80-100); Mean Platelet Volume 8.7 fl (7.4-10.4); Monocytes Absolute Auto 0.6 K/mm3 (0.1-0.6); Monocytes Percent Auto 5.3 % (2.6-8.5); Neutrophils Percent Auto 80.7 % (45.5-73.1); Platelet Count Result 217 k/mm3 (150-375); Red Blood Count 2.62 M/mm3 (4.2-5.4); Red Cell Distribution Width 13.5 % (11.5-14.5); White Blood Count 11.2 K/mm3 (4.5-10.0)
[2024-01-03 13:53] LABS: Iron 174 ug/dL (37-170)
[2024-01-03 13:54] LABS: Alanine Aminotransferase 16 U/L (6-35); Albumin Level 3.9 g/dL (3.5-5.1); Alkaline Phosphatase 389 U/L (38-126); Anion Gap 10 mmol/L (4-12); Aspartate Amino Transferase 81 U/L (14-36); Bilirubin,Total 1.1 mg/dL (0.2-1.3); Blood Urea Nitrogen 7 mg/dL (7-17); Calcium 7.6 mg/dL (8.4-10.2); Carbon Dioxide 26 mmol/L (22-30); Chloride 102 mmol/L (98-107); Estimated Glomerular Filt Rate > 60; Glucose 123 mg/dL (65-110); Potassium 3.2 mmol/L (3.4-5.0); Sodium 138 mmol/L (137-145)
[2024-01-03 14:06] LABS: Parathyroid Intact 63.6 pg/mL (14.5-75.2)
[2024-01-03 14:39] LABS: Percent Iron Saturation 57 % (20-50)
[2024-01-03 15:28] LABS: Folic Acid 3.9 ng/mL (2.76->20); Vitamin B12 > 1000.0 pg/mL (239-931)
[2024-01-04 18:28] LABS: GGT 1767 U/L (3-70)
[2024-01-08 14:03] LABS: Methylmalonic Acid 83 nmol/L (55-335)
== END 2024-01-03 11:19 | disposition home or self-care (01) ==
PROVIDERS: PCP Physician Assistant; Visit Provider Internal Medicine Hematology & Oncology
DX: R74.8 Abnormal levels of other serum enzymes (principal); D64.9 Anemia, unspecified; D75.89 Other specified diseases of blood and blood-forming organs
CPT/HCPCS: 36415; 80053; 82607; 82728; 82746; 82977; 83540; 83550; 83921; 83970; 85025

== ENCOUNTER 2024-03-06 10:37 | Outpatient (CLI) | payer MEDICARE, MEDICAID, SELFPAY ==
[2024-03-06 10:52] LABS: Basophils Absolute Auto 0.1 K/mm3 (0.0-0.1); Basophils Percent Auto 0.3 % (0.2-1.2); Eosinophils Absolute Auto 0.1 K/mm3 (0-0.3); Eosinophils Percent Auto 0.9 % (0-4.4); Hemoglobin 11.9 g/dL (12.0-15.0); Immature Granulocyte Absolute 0.08 K/mm3 (0.00-0.031); Immature Granulocyte Percent A 0.5 % (0-0.5); Lymphocytes Absolute Auto 1.74 K/mm3 (0.9-3.2); Lymphocytes Percent Auto 11.4 % (18.3-44.2); Mean Corpuscular Hemoglobin 40.3 pg (26-34); Mean Corpuscular Volume 118.6 fl (80-100); Mean Platelet Volume 9.1 fl (7.4-10.4); Monocytes Absolute Auto 0.9 K/mm3 (0.1-0.6); Monocytes Percent Auto 5.8 % (2.6-8.5); Neutrophils Absolute Auto 12.4 K/mm3 (1.3-6.7); Neutrophils Percent Auto 81.1 % (45.5-73.1); Platelet Count Result 296 k/mm3 (150-375); Red Blood Count 2.95 M/mm3 (4.2-5.4); Red Cell Distribution Width 13.2 % (11.5-14.5); White Blood Count 15.3 K/mm3 (4.5-10.0)
[2024-03-06 12:37] LABS: Iron 160 ug/dL (37-170)
[2024-03-06 12:39] LABS: Alanine Aminotransferase 23 U/L (6-35); Alkaline Phosphatase 384 U/L (38-126); Anion Gap 12 mmol/L (4-12); Aspartate Amino Transferase 90 U/L (14-36); Bilirubin,Total 1.5 mg/dL (0.2-1.3); Blood Urea Nitrogen 14 mg/dL (7-17); Calcium 8.6 mg/dL (8.4-10.2); Carbon Dioxide 19 mmol/L (22-30); Chloride 104 mmol/L (98-107); Estimated Glomerular Filt Rate > 60; Glucose 118 mg/dL (65-110); Potassium 4.7 mmol/L (3.4-5.0); Sodium 135 mmol/L (137-145)
[2024-03-06 12:48] LABS: Percent Iron Saturation 50 % (20-50)
[2024-03-06 13:53] LABS: Folic Acid 3.6 ng/mL (2.76->20); Vitamin B12 > 1000.0 pg/mL (239-931)
--- OUTSIDE RECORDS SUMMARY | 2024-03-12 06:27 | XMS_ITS | Clinical Summary ---
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/2018 ZAYRA MEMBRENO Active Last Documented On 9 2:11PM ; [facility] Plan of Treatment No Plan of Treatment Recorded Assessments Includes: Assessments from this encounter No Assessments Recorded Medical Equipment - Implanted Devices Includes: Current Devices No Medical Equipment Recorded Medications Includes: Medications discussed during this encounter and other current Medications New / Renewed during this visit ZAYRA MEMBRENO on 01/01/2019 Xanax 0.5 MG Oral Tablet Provider: SILVIO MEMBRENO 1 day supply: 3 tablet, 0 refills Diagnosis: Anxiety disorder, unspecified as directed 1 po 1 hour prio r to procedure, 1 po 30 minutes prior to procedure and 1 immediately prior prn Pharmacy: [facility] [address], [address] - Last Documented On 9 9:21AM By ZAYRA MEMBRENO ; [facility] Current Medications (continue as prescribed) Aleve 220 MG Oral Tablet 02/18/2018 Provider: Diagnosis: prn Last Documented On 9 1:08PM By ZAYRA MEMBRENO ; [facility] Medications Administered Includes: Administered Medications from this encounter No Administered Medications Recorded Results Includes: Results discussed during this encounter No Results Recorded For Specified Dates History of Present Illness Includes: History of Present Illness from this encounter No History of Present Illness Recorded Social History Description Last Updated Alcohol 12/08/2018 Last Documented On 9 10:23AM ; [facility] Not using drugs 12/08/2018 Last Documented On 9 10:23AM ; [facility] Single 12/08/2018 Last Documented On 9 10:23AM ; [facility] Tobacco use 12/08/2018 Last Documented On 9 10:23AM ; [facility] Smoking Status Unknown Medical History Includes: Medical History addressed during this encounter No Medical History Recorded Family History Includes: Family History addressed during this encounter No Family History Recorded Review of Systems Includes: Review of Systems from this encounter No Review of Systems Recorded Mental Status Includes: Mental Status from this encounter No Mental Status Recorded Functional Status Includes: Functional Status from this encounter No Functional Status Recorded Physical Exam Includes: Physical Exam from this encounter No Physical Exam Recorded Allergies Includes: Active Allergies Substance Type Reaction Onset Date Resolved Date Statu s Clindamycin HCl Allergy 12/08/2018 Act deja Last Documented On 0 9:34AM ; [facility] Encounters Encounter Provider Location Date Check-In Time Check-Out Time Diagnosis * PHONE CALL ZAYRA MEMBRENO 01/01/2019 10:23AM 11:59PM Insurance Includes: Active Insurance Policies Plan Name Member ID Group # Subscriber Relationship Effect deja Dates - [facility] [id number] LETICIA PHIPPS Self Clinical Notes Includes: Clinical Notes from this encounter No Clinical Notes Recorded
--- OUTSIDE RECORDS SUMMARY | 2024-03-12 06:27 | XMS_ITS | Clinical Summary ---
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/2018 ZAYRA MEMBRENO Active Last Documented On 9 2:11PM ; [facility] Plan of Treatment No Plan of Treatment Recorded Assessments Includes: Assessments from this encounter No Assessments Recorded Medical Equipment - Implanted Devices Includes: Current Devices No Medical Equipment Recorded Medications Includes: Medications discussed during this encounter and other current Medications New / Renewed during this visit ZAYRA MEMBRENO on 02/19/2019 Xanax 0.5 MG Oral Tablet Provider: SILVIO MEMBRENO 1 day supply: 3 tablet, 0 refills Diagnosis: as directed 1 po 1 hour prio r to procedure, 1 po 30 minutes prior to procedure and 1 immediately prior prn Pharmacy: [facility] [address], [address] - Last Documented On 0 9:43AM By Jeannine CORTES ; [facility] Current Medications (continue as prescribed) Aleve 220 MG Oral Tablet 02/18/2018 Provider: Diagnosis: prn Last Documented On 9 1:08PM By ZAYRA MEMBRENO ; [facility] Medications Administered Includes: Administered Medications from this encounter No Administered Medications Recorded Results Includes: Results discussed during this encounter No Results Recorded For Specified Dates History of Present Illness Includes: History of Present Illness from this encounter No History of Present Illness Recorded Social History Description Last Updated Smoking status : Current everyday smoker 01/26/2019 Last Documented On 0 11:33AM ; [facility] Alcohol 12/08/2018 Last Documented On 0 11:33AM ; [facility] Not using drugs 12/08/2018 Last Documented On 0 11:33AM ; [facility] Single 12/08/2018 Last Documented On 0 11:33AM ; [facility] Tobacco use 12/08/2018 Last Documented On 0 11:33AM ; [facility] Medical History Includes: Medical History addressed during [...] deja Last Documented On 0 9:34AM ; [facility] Encounters Encounter Provider Location Date Check-In Time Check-Out Time Diagnosis * PHONE CALL ZAYRA CISNEROS-HARRY 02/19/2019 11:33AM 11:59PM Insurance Includes: Active Insurance Policies Plan Name Member ID Group # Subscriber Relationship Effect deja Dates - [facility] [id number] LETICIA PHIPPS Self Clinical Notes Includes: Clinical Notes from this encounter No Clinical Notes Recorded
--- OUTSIDE RECORDS SUMMARY | 2024-03-12 06:27 | XMS_ITS ---
Author Organization [facility] Address [address] [place] [address] Phone Care Team Providers Care Cash Accountant Name Role Phone TOM CONRAD, ARELI Granados Unavailable TOM CONRAD, ARELI Stephenson Primary Care Provider [phone] Problems Includes: Active, inactive, and resolved Problems All Visits Onset Date Resolved Date Provider Condition S tatus Lumbar Spondylosis 12/08/2018 ZAYRA MEMBRENO Active Last Documented On 9 2:11PM ; [facility] Plan of Treatment Referrals To Diagnosis Pain Management [address] [address] - Other spondylosis with radiculopathy, lumbar region Note: consent for bilateral L4-5 transforaminal epidural Last Documented On 0 2:34PM ; [facility] Pain Management [address] [address] - Other spondylosis with radiculopathy, lumbar region Note: consent for bilateral L4-5 transforaminal epidural Last Documented On 0 8:07AM ; [facility] Instructions to patient Intervention and counseling on cessation of tobacco use : Patient recieved smoking cessation handout Last Documented On 0 9:34AM ; [facility] Intervention and counseling on cessation of tobacco use : Patient recieved smoking cessation handout Last Documented On 9 9:46AM ; [facility] Assessments Includes: Assessments for all patient encounters Findings Encounter Date Lumbar canal stenosis with n eurogenic claudication PAIN MANAGEMENT FOLLOW UP with ZAYRA MEMBRENO 03/20/2019 Last Documented On 0 10:03AM ; [facility] Lumbar spondylosis with radiculopathy PA IN MANAGEMENT FOLLOW UP with ZAYRA L VIJAY ANP-BC 03/20/2019 Last Documented On 0 10:03AM ; [facility] Myalgia PAIN MANAGEMENT FOLLOW UP with T BATOOL L VIJAY ANP-BC 03/20/2019 Last Documented On 0 10:03AM ; [facility] Lumbar spondylosis with radiculopathy PA IN MANAGEMENT FOLLOW UP with ZAYRA L VIJAY ANP- 01/26/2019 Last Documented On 9 9:21AM ; [facility] Lumbosacral spinal stenosis PAIN MANAGEM ENT FOLLOW UP with ZAYRA L VIJAY [facility]- 01/26/2019 Last Documented On 9 9:21AM ; [facility] Myalgia PAIN MANAGEMENT FOLLOW UP with T BATOOL L VIJAY [facility]- 01/26/2019 Last Documented On 9 9:21AM ; [facility] Lumbar spondylosis with radiculopathy PA IN MANAGEMENT NEW CONSULT with ZAYRA L VIJAY [facility]- 12/08/2018 Last Documented On 9 1:09PM ; [facility] Lumbosacral spinal stenosis PAIN MANAGEM ENT NEW CONSULT with ZAYRA L VIJAY [facility]- 12/08/2018 Last Documented On 9 1:09PM ; [facility] Myalgia PAIN MANAGEMENT NEW CONSULT with ZAYRA L VIJAY [facility]- 12/08/2018 Last Documented On 9 1:09PM ; [facility] Instructions Includes: Instructions for all patient encounters Instructions to patient Intervention and counseling on cessation of tobacco use : Patient recieved smoking cessation handout Last Documented On 0 9:34AM ; [facility] Intervention and counseling on cessation of tobacco use : Patient recieved smoking cessation handout Last Documented On 9 9:46AM ; [facility] Medical Equipment - Implanted Devices Includes: Current and historical Devices No Medical Equipment Recorded Medications Includes: Current and historical Medications Current Medications (continue as prescribed) Aleve 220 MG Oral Tablet 02/18/2018 Provider: Diagnosis: prn Last Documented On 9 1:08PM By ZAYRA MEMBRENO ; [facility] Past Medications on file Xanax 0.5 MG Oral Tablet 02/19/2019 - 03/20/2019 Provi ramos: ZAYRA MEMBRENO Diagnosis: as directed 1 po 1 hour prio r to procedure, 1 po 30 minutes prior to procedure and 1 immediately prior prn Last Documented On 0 9:43AM By Jeannine CORTES ; [facility] Xanax 0.5 MG Oral Tablet 02/12/2019 - 03/20/2019 Provider: ZAYRA MEMBRENO Diagnosis: Anxiety disorder , unspecified as directed 1 po 1 hour prio r to procedure, 1 po 30 minutes prior to procedure and 1 immediately prior prn Last Documented On 0 10:04AM By ZAYRA MEMBRENO ; [facility] Xanax 0.5 MG Oral Tablet 02/02/2019 - 02/12/2019 Provider: ZAYRA MEMBRENO Diagnosis: Anxiety disorder , unspecified as directed 1 po 1 hour prio r to procedure, 1 po 30 minutes prior to procedure and 1 immediately prior prn Last Documented On 9 4:19PM By ZAYRA MEMBRENO ; [facility] Xanax 0.5 MG Oral Tablet 01/01/2019 - 01/26/2019 Provider: ZAYRA MEMBRENO Diagnosis: Anxiety disorder , unspecified as directed 1 po 1 hour prio r to procedure, 1 po 30 minutes prior to procedure and 1 immediately prior prn Last Documented On 9 9:21AM By ZAYRA MEMBRENO ; [facility] José Miguel/Mag 200-100 MG Oral Tablet 12/08/2018 - 03/20/2019 Provider: Diagnosis: Last Documented On 0 9:44AM By Jeannine CORTES ; [facility] Cyclobenzaprine HCl 10 MG Oral Tablet 12/08/2018 - Provider: Diagnosis: Last Documented On 0 9:43AM By Jeannine CORTES ; [facility] Montelukast Sodium 10 MG Oral Tablet 12/08/2018 - 02/20 Provider: Diagnosis: Last Documented On 0 9:43AM By Jeannine CORTES ; [facility] Medications Administered Includes: Administered Medications in patient's chart No Administered Medications Recorded Results Includes: Results from 03/12/2023 through 03/12/2024 No Results Recorded For Specified Dates History of Present Illness History of Present Illness not supported for this document type No History of Present Illness Recorded Social History Description Last Updated Smoking status : Current everyday smoker 01/26/2019 Last Documented On 9 9:21AM ; [facility] Alcohol 12/08/2018 Last Documented On 9 1:09PM ; [facility] Not using drugs 12/08/2018 Last Documented On 9 1:09PM ; [facility] Single 12/08/2018 Last Documented On 9 1:09PM ; [facility] Tobacco use 12/08/2018 Last Documented On 9 1:09PM ; [facility] Medical History Includes: Medical History in patient's chart Description Last Updated Reviewed and Unchanged 03/20/2019 Last Documented On 0 10:03AM ; [facility] 1 miscarriage(s) 12/08/2018 Last Documented On 9 1:09PM ; [facility] Previously 4 time(s) 12/08/2018 Last Documented On 9 1:09PM ; [facility] No history of arthritis 12/08/2018 Last Documented On 9 1:09PM ; [facility] No history of cancer 12/08/2018 Last Documented On 9 1:09PM ; [facility] No history of chronic obstructive pulmon rafal disease 12/08/2018 Last Documented On 9 1:09PM ; [facility] No history of convulsive disorder 2018 Last Documented On 9 1:09PM ; [facility] No history of diabetes mellitus 12/09/19 19 Last Documented On 9 1:09PM ; [facility] No history of hypertension 12/08/2018 Last Documented On 9 1:09PM ; [facility] No history of sexually transmitted disea se 12/08/2018 Last Documented On 9 1:09PM ; [facility] No history of stroke syndrome 12/08/2018 Last Documented On 9 1:09PM ; [facility] No reported cardiovascular symptoms 11/19 Last Documented On 9 1:09PM ; [facility] No reported easy bleeding 12/08/2018 Last Documented On 9 1:09PM ; [facility] No reported recurrent infections 019 Last Documented On 9 1:09PM ; [facility] Family History Includes: Family History in patient's chart Description Last Updated Father 71 years old COPD 12/08/2018 Last Documented On 9 1:09PM ; [facility] Mother CANCER 12/08/2018 Last Documented On 9 1:09PM ; [facility] Review of Systems Review of Systems not supported for this document type No Review of Systems Recorded Mental Status Description Oriented to time, place, and person No anxiety Functional Status No Functional Status Recorded Physical Exam Physical Exam not supported for this document type No Physical Exam Recorded Allergies Includes: Active, inactive, and resolved Allergies Substance Type Reaction Onset Date Resolved Date Statu s Clindamycin HCl Allergy 12/08/2018 Act deja Last Documented On 0 9:34AM ; [facility] Insurance Includes: Active Insurance Policies Plan Name Member ID Group # Subscriber Relationship Effect deja Dates - [facility] [id number] LETICIA PHIPPS Self Clinical Notes Includes: Signed Clinical Notes starting from 03/09/2022 No Clinical Notes Recorded
--- OUTSIDE RECORDS SUMMARY | 2024-03-12 06:27 | XMS_ITS | Clinical Summary ---
Author Organization [facility] Address [address] [place] [address] Phone Care Team Providers Care Planisher Name Role Phone TOM CONRAD, ARELI SANTOS MD, ARELI Stephenson Primary Care Provider [phone] Reason for Visit and Chief Complaint The Chief Complaint is: Pt here today for f/u injection. She states that she had about 30-40% relief Problems Includes: Problems addressed during this encounter and other active Problems All Visits Onset Date Resolved Date Provider Condition S tatus Lumbar Spondylosis 12/08/2018 ZAYRA LINARES ANP- Active Last Documented On 9 2:11PM ; [facility] Plan of Treatment Instructions to patient Intervention and counseling on cessation of tobacco use : Patient recieved smoking cessation handout Last Documented On 0 9:34AM ; [facility] Assessments Includes: Assessments from this encounter Findings - Lumbar spondylosis with radiculopathy [M47.26 - Other spondylosis with radiculopathy, lumbar region] - Last Documented On 03/20/2019 10:03AM ; [facility] - Lumbar canal stenosis with neurogenic claudication [M48.062 - Spinal stenosis, lumbar region with neurogenic claudication] - Last Documented On 03/20/2019 10:03AM ; [facility] - Myalgia [M79.18 - Myalgia, other site] - Last Documented On 03/20/2019 10:03AM ; [facility] Instructions Includes: Instructions from this encounter Instructions to patient Intervention and counseling on cessation of tobacco use : Patient recieved smoking cessation handout Last Documented On 0 9:34AM ; [facility] Medical Equipment - Implanted Devices Includes: Current Devices No Medical Equipment Recorded Medications Includes: Medications discussed during this encounter and other current Medications Discontinued / Stopped on this date ZAYRA MEMBRENO on 02/19/2019 Xanax 0.5 MG Oral Tablet Provider: SILVIO MEMBRENO Diagnosis: Last Documented On 0 9:43AM By Jeannine CORTES ; [facility] Xanax 0.5 MG Oral Tablet Provider: ZAYRA CUELLAR Diagnosis: Anxiety disorder , unspecified Last Documented On 0 10:04AM By ZAYRA MEMBRENO ; [facility] José Miguel/Mag 200-100 MG Oral Tablet Provider: Diagnosis: Last Documented On 0 9:44AM By Jeannine CORTES ; [facility] Cyclobenzaprine HCl 10 MG Oral Tablet Pro vider: Diagnosis: Last Documented On 0 9:43AM By Jeannine CORTES ; [facility] Montelukast Sodium 10 MG Oral Tablet Prov ider: Diagnosis: Last Documented On 0 9:43AM By Jeannine CORTES ; [facility] Current Medications (continue as prescribed) Aleve 220 MG Oral Tablet 02/18/2018 Provider: Diagnosis: prn Last Documented On 9 1:08PM By ZAYRA MEMBRENO ; [facility] Medications Administered Includes: Administered Medications from this encounter No Administered Medications Recorded Vital Signs Includes: Vital Signs from this encounter Vital Name 03/20/2019 09:34A Blood Pressure Sitting L 128/76 BP Cuff Size Large Pulse Rate-Sitting (bpm) 76 Respiration Rate (breaths/min) 18 Weight (lb) 160 Pain Level 4 Last Documented: On 03/20/2019 9:43AM ; [facility] Results Includes: Results discussed during this encounter No Results Recorded For Specified Dates History of Present Illness Includes: History of Present Illness from this encounter ELBA PHIPPS is a 48 year old female. Patient presents in follow up to a repeat bilateral L4-5 epidural. She reports 30-40% pain relief, not as much relief as the first. Activity is limited and standing is difficult due to increase pain. Radicular symptoms are mainly right sided now. Aleve daily prn helps some. Flexeril is used a couple times per week. MRI shows moderate central canal stenosis and mild foraminal stenosis bilaterally. - Allergy list reviewed - Medication reconciliation performed Social History Description Last Updated Smoking status : Current everyday smoker 01/26/2019 Last Documented On 0 9:33AM ; [facility] Alcohol 12/08/2018 Last Documented On 0 9:33AM ; [facility] Not using drugs 12/08/2018 Last Documented On 0 9:33AM ; [facility] Single 12/08/2018 Last Documented On 0 9:33AM ; [facility] Tobacco use 12/08/2018 Last Documented On 0 9:33AM ; [facility] Procedures and Surgical History Includes: Procedures from this encounter Procedures Code Diagnosis Performing Provider Service L ocation Service Date education and instructions provided Last Documented On 0 9:57AM ; [facility] intervention and counseling on cessation of tobacco use : Patient recieved smoking cessation handout 4000F Last Documented On 0 9:34AM ; [facility] review of medications documented 1160F Last Documented On 0 9:34AM ; [facility] Medical History Includes: Medical History addressed during this encounter Description Last Updated Reviewed and Unchanged 03/20/2019 Last Documented On 0 10:03AM ; [facility] Family History Includes: Family History addressed during this encounter No Family History Recorded Review of Systems Includes: Review of Systems from this encounter Systemic: General overall feeling is unknown and not feeling tired (fatigue). No fever, no chills, and no recent weight change. Cardiovascular: No chest pain or discomfort. Pulmonary: No dyspnea. Shortness of breath and chronic cough. Hematologic: No tendency for easy bruising. Musculoskeletal: Lower back pain, muscle aches, muscle aches, and pain localized to one or more joints. Neurological: No dizziness, no vertigo, no motor disturbances, and no sensory disturbances. Psychological: No anxiety and no depression. Skin: No rash. Mental Status Includes: Mental Status from this encounter Description Oriented to time, place, and person No anxiety Functional Status Includes: Functional Status from this encounter No Functional Status Recorded Physical Exam Includes: Physical Exam from this encounter Allergies Includes: Active Allergies Substance Type Reaction Onset Date Resolved Date Statu s Clindamycin HCl Allergy 12/08/2018 Act deja Last Documented On 0 9:34AM ; [facility] Encounters Encounter Provider Location Date Check-In Time Check-Out Time Diagnosis PAIN MANAGEMENT FOLLOW UP ZAYRA [facility]NEROS[facility] 03/20/19 20 9:16AM 10:04AM Spondylosis with Radiculopathy Lumbar Region,Myalgia,S breana Stenosis Lumbar with Neurogenic Claudication Insurance Includes: Active Insurance Policies Plan Name Member ID Group # Subscriber Relationship Effect deja Dates 1 - [facility] [id number] LETICIA PHIPPS Self Clinical Notes Includes: Clinical Notes from this encounter No Clinical Notes Recorded
--- OUTSIDE RECORDS SUMMARY | 2024-03-12 06:27 | XMS_ITS | Clinical Summary ---
Author Organization [facility] Address [address] [place] [address] Phone Care Team Providers Care Licensed Insurance Sales Agent Name Role Phone TOM CONRAD, ARELI SANTOS MD, ARELI Stephenson Primary Care Provider [phone] Reason for Visit and Chief Complaint The Chief Complaint is: Pt here today for f/u injection. She stated that the first three days she had about 50% relief Problems Includes: Problems addressed during this encounter and other active Problems All Visits Onset Date Resolved Date Provider Condition S tatus Lumbar Spondylosis 12/08/2018 ZAYRA LINARES ANP- Active Last Documented On 9 2:11PM ; [facility] Plan of Treatment Referrals To Diagnosis Pain Management [facility] - [address] [place] [address] - Other spondylosis with radiculopathy, lumbar region Note: consent for bilateral L4-5 transforaminal epidural Last Documented On 0 8:07AM ; [facility] Instructions to patient Intervention and counseling on cessation of tobacco use : Patient recieved smoking cessation handout Last Documented On 9 9:46AM ; [facility] Assessments Includes: Assessments from this encounter Findings - Lumbar spondylosis with radiculopathy [M47.26 - Other spondylosis with radiculopathy, lumbar region] - Last Documented On 02/02/2019 9:21AM ; [facility] - Lumbosacral spinal stenosis [M48.07 - Spinal stenosis, lumbosacral region] - Last Documented On 02/02/2019 9:21AM ; [facility] - Myalgia [M79.18 - Myalgia, other site] - Last Documented On 02/02/2019 9:21AM ; [facility] Instructions Includes: Instructions from this encounter Instructions to patient Intervention and counseling on cessation of tobacco use : Patient recieved smoking cessation handout Last Documented On 9 9:46AM ; [facility] Medical Equipment - Implanted Devices Includes: Current Devices No Medical Equipment Recorded Medications Includes: Medications discussed during this encounter and other current Medications Current Medications (continue as prescribed) Aleve 220 MG Oral Tablet 02/18/2018 Provider: Diagnosis: prn Last Documented On 9 1:08PM By ZAYRA LINARES [facility] ; [facility] Medications Administered Includes: Administered Medications from this encounter No Administered Medications Recorded Vital Signs Includes: Vital Signs from this encounter Vital Name 01/26/2019 09:46A Blood Pressure Sitting L 134/74 BP Cuff Size Regular Pulse Rate-Sitting (bpm) 67 Pulse Rhythm Regular Respiration Rate (breaths/min) 18 Weight (lb) .16 Pain Level 0 Last Documented: On 01/26/2019 9:47AM ; [facility] Results Includes: Results discussed during this encounter No Results Recorded For Specified Dates History of Present Illness Includes: History of Present Illness from this encounter HPI LETICIA PHIPPS is a 48 year old female. Patient presents in follow up to a bilateral L4-5 epidural 2-3 weeks ago. She reports at least 50% pain relief with ability to be more active, but feels pain is returning. Leg pain has considerably improved, but still bothersome when she is active. We discussed a repeat epidural for optimal symptom control. Aleve daily prn helps some. Flexeril is used a couple times per week. MRI shows moderate central canal stenosis and mild foraminal stenosis bilaterally. - Allergy list reviewed - Medication reconciliation performed Social History Description Last Updated Smoking status : Current everyday smoker 01/26/2019 Last Documented On 9 9:21AM ; [facility] Alcohol 12/08/2018 Last Documented On 9 9:43AM ; [facility] Not using drugs 12/08/2018 Last Documented On 9 9:43AM ; [facility] Single 12/08/2018 Last Documented On 9 9:43AM ; [facility] Tobacco use 12/08/2018 Last Documented On 9 9:43AM ; [facility] Procedures and Surgical History Includes: Procedures from this encounter Procedures Code Diagnosis Performing Provider Service L ocation Service Date education and instructions provided Last Documented On 9 9:53AM ; [facility] intervention and counseling on cessation of tobacco use : Patient recieved smoking cessation handout 4000F Last Documented On 9 9:46AM ; [facility] review of medications documented 1160F Last Documented On 9 9:44AM ; [facility] Medical History Includes: Medical History addressed during this encounter Description Last Updated Reviewed and Unchanged 01/26/2019 Last Documented On 9 9:21AM ; [facility] Family History Includes: Family History addressed during [...] deja Last Documented On 0 9:34AM ; [facility] Encounters Encounter Provider Location Date Check-In Time Check-Out Time Diagnosis PAIN MANAGEMENT FOLLOW UP ZAYRA LINARES [facility] 01/27/20 19 9:37AM 10:13AM Spondylosis with Radiculopathy Lumbar Region,Spinal Stenosis Lumbosacral,Myal richard Insurance Includes: Active Insurance Policies Plan Name Member ID Group # Subscriber Relationship Effect deja Dates - [facility] [id number] LETICIA PHIPPS Self Clinical Notes Includes: Clinical Notes from this encounter No Clinical Notes Recorded
--- OUTSIDE RECORDS SUMMARY | 2024-03-12 06:27 | XMS_ITS | Data Portability ---
Author Organization 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 Plan of Treatment Reminders Order Date Submit Date Provider Last Modified By Organization Details Last Modified Time Details Appointments None recorded. Lab CMP, serum or plasma 2023 024 [facility], [address], [place], [address], 4 23:08:46 lipid panel, serum 2023 024 [facility], [address], [place], [address], 4 23:08:45 CBC w/ auto diff 2023 024 [facility], [address], [place], [address], 4 23:08:46 TSH + free T4, serum 2023 024 [facility], [address], [place], [address], 4 11:26:00 HbA1c (hemoglobin A1c), blood 2023 024 [facility], [address], [place], [address], 4 11:26:00 CMP, serum or plasma 11/06/ 2024 11/06/2 024 DARIO STEINBERG, [facility], [address], [place], [address], 4 12:29:36 CBC w/ auto diff 2023 024 DARIO STEINBERG, [facility], [address], [place], [address], 4 12:29:38 lipid panel, serum 2023 024 DARIO STEINBERG, [facility], [address], [place], [address], 4 12:29:35 PTH (parathyroi d hormone), intact, serum or plasma 2023 024 DARIO STEINBERG, [facility], [address], [place], [address], 4 20:09:54 gamma-gluta myl transferase (ggt), serum 2023 024 DARIO STEINBERG, [facility], [address], [place], [address], 4 20:09:53 vitamin D, 25-hydroxy, total, serum 2023 024 DARIO STEINBERG, [address] [place] [address] [address], [address], [place], [address], 4 20:09:55 unlisted lab - homocyst(E) ine+mma 2023 024 DARIO STEINBERG, [facility], [address], [place], [address], 4 20:09:50 iron + total iron-bindin g capacity (TIBC), serum 2023 024 [facility], [address], [address], [place], [address], 4 17:52:33 vitamin B12 + folate, serum or blood 2023 024 [facility], [address], [address], [place], [address], 4 20:09:52 Referral None recorded. Procedures None recorded. Surgeries None recorded. Imaging XR, lumbosacral spine, 2 or 3 view 2022 023 [facility], [address], [place], [address], 3 11:40:27 US, breast, unilateral 2023 024 [facility], [address], [address], [place], [address], 4 12:03:02 Medication Orders atorvastati n 20 mg tablet 2022 023 [facility], [address] [place], [address], 3 10:31:38 hydrocodone 5 mg-acetamin ophen 325 mg tablet 2022 023 [facility] [address], [address] [place], [address], 4 15:27:20 lidocaine 5 % topical patch 2022 024 [facility] [address], [address] [place], [address], 4 10:18:42 losartan 25 mg tablet 2023 024 korey [facility] [address], [address] [facility], [place], [address], 15:18:47 Patient TargetsNo targets recorded. Patient Instructions Encounter Date Encounter Id Patient Instructions Last Modified By Organization Details Last Modified Time 02/15/2023 [id number] broken rib: care instructions [email or web address] Not available 02/19/2023 18:11:23 11/01/2023 [id number] A healthy lifestyle: care instructions [email or web address] Not available 11/05/2023 14:58:55 Reason for Referral None Reported. Results Created Date Observation Date Name Description Value Unit Range Abnormal Flag Note LastModifiedBy Organization Detail LastModifiedTime 10/25/1910/25/2022 LIPID PANEL WITH LDL/H DL RATIO cholesterol, total 249 mg/dL 100-19 9 above high normal Not Available [facility] [address] [place], [address], 10/25/2022 01:07:56 10/25/1910/25/2022 LIPID PANEL WITH LDL/H DL RATIO triglyceride s 164 mg/dL 0-149 above high normal Not Available [facility] [address] [place], [address], 10/25/2022 01:07:56 10/25/1910/25/2022 LIPID PANEL WITH LDL/H DL RATIO HDL cholesterol 59 mg/dL 40-999 Not Available [facility] Department [address] [place], [address], 10/25/2022 01:07:56 10/25/1910/25/2022 LIPID PANEL WITH LDL/H DL RATIO VLDL cholesterol lauren 33 mg/dL 5-40 Not Available [facility] [address] [place], [address], 10/25/2022 01:07:56 10/25/19 23 10/25/2022 LIPID PANEL WITH LDL/H DL RATIO LDL chol calc (nih) 180 mg/dL 0-99 above high normal Not Available [facility] [address] [place] [address], [address], 10/25/2022 01:07:56 10/25/1910/25/2022 LIPID PANEL WITH LDL/H DL RATIO LDL/HDL ratio 3.1 0-3.2 Not Available [facility] [address] [place], [address], 10/25/2022 01:07:56 10/25/19 23 10/25/2022 COMP. METAB OLIC PANEL (14) glucose 138 mg/dL 70-99 above high normal Not Available [facility] [address] [place] [address], [address], 10/25/2022 01:07:56 10/25/19 23 10/25/2022 COMP. METAB OLIC PANEL (14) BUN 7 mg/dL 6-24 Not Available [facility] [address] [place] [address], [address], 10/25/2022 01:07:56 10/25/19 23 10/25/2022 COMP. METAB OLIC PANEL (14) creatinine 0.54 mg/dL 0.76-1 .27 below low normal Not Available [facility] [address] [place], [address], 10/25/2022 01:07:56 10/25/1910/25/2022 COMP. METAB OLIC PANEL (14) eGFR 111 >=60 Units for eGFR value s are mL/mi n/1.7 3 The eGFR Calcu latio n has not been valid ated for patie nts under the age of 18. If test resul ts are displ ayed for a patie nt under the age of 18, disre arely that value . Not Available [facility] [address] [place], [address], 10/25/2022 01:07:56 10/25/19 23 10/25/2022 COMP. METAB OLIC PANEL (14) BUN/creatini ne ratio 12 9-23 Not Available [facility] Department [address] [place], [address], 10/25/2022 01:07:56 10/25/1910/25/2022 COMP. METAB OLIC PANEL (14) sodium 142 mmol/ L 134-14 4 Not Available [facility] [address] [place] [address], [address], 10/25/2022 01:07:56 10/25/1910/25/2022 COMP. METAB OLIC PANEL (14) potassium 3.2 mmol/ L 3.5-5. 2 below low normal Not Available [facility] [address] [place] [address], [address], 10/25/2022 01:07:56 10/25/1910/25/2022 COMP. METAB OLIC PANEL (14) chloride 100 mmol/ L 96-106 Not Available [facility] [address] [place] [address], [address], 10/25/2022 01:07:56 10/25/1910/25/2022 COMP. METAB OLIC PANEL (14) carbon dioxide, total 26 mmol/ L 20-29 Not Available [facility] [address] [place] [address], [address], 10/25/2022 01:07:56 10/25/1910/25/2022 COMP. METAB OLIC PANEL (14) calcium 8.7 mg/dL 8.7-10 .2 Not Available [facility] [address] [place], [address], 10/25/2022 01:07:56 10/25/1910/25/2022 COMP. METAB OLIC PANEL (14) protein, total 7.6 g/dL 6.0-8. 5 Not Available [facility] [address] [place] [address], [address], 10/25/2022 01:07:56 10/25/1910 1110/25/2022 COMP. METAB OLIC PANEL (14) albumin 4.1 g/dL 3.8-4. 9 Not Available [facility] [address] [place] [address], [address], 10/25/2022 01:07:56 10/25/19 23 10/25/2022 COMP. METAB OLIC PANEL (14) globulin, total 3.5 g/dL 1.5-4. 5 Not Available [facility] [address] [place] [address], [address], 10/25/2022 01:07:56 10/25/1910/25/2022 COMP. METAB OLIC PANEL (14) A/G ratio 1.0 1.2-2. 2 below low normal Not Available [facility] [address] [place] [address], [address], 10/25/2022 01:07:56 10/25/19 23 10/25/2022 COMP. METAB OLIC PANEL (14) bilirubin, total 1.2 mg/dL 0.0-1. 2 Not Available [facility] [address] [place] [address], [address], 10/25/2022 01:07:56 10/25/19 23 10/25/2022 COMP. METAB OLIC PANEL (14) alkaline phosphatase 599 IU/L 44-121 above high normal Not Available [facility] [address] [place] [address], [address], 10/25/2022 01:07:56 10/25/19 23 10/25/2022 COMP. METAB OLIC PANEL (14) AST (SGOT) 107 IU/L 0-40 above high normal Not Available [facility] [address] [place] [address], [address], 10/25/2022 01:07:56 10/25/19 23 10/25/2022 COMP. METAB OLIC PANEL (14) ALT (SGPT) 17 IU/L 0-32 Not Available [facility] [address] [place], [address], 10/25/2022 01:07:56 10/25/1910/24/2022 CBC WITH DIFFE RENTI AL/PL ATELE T WBC 10.5 x10e3 /uL 3.4-10 .8 Not Available [facility] [address] [place], [address], 10/25/2022 01:07:57 10/25/1910/24/2022 CBC WITH DIFFE RENTI AL/PL ATELE T RBC 3.52 x10e6 /uL 3.77-5 .28 below low normal Not Available [facility] [address] [place], [address], 10/25/2022 01:07:57 10/25/1910/24/2022 CBC WITH DIFFE RENTI AL/PL ATELE T hemoglobin 10.4 g/dL 11.1-1 5.9 below low normal Not Available [facility] [address] [place], [address], 10/25/2022 01:07:57 10/25/1910/24/2022 CBC WITH DIFFE RENTI AL/PL ATELE T hematocrit 34.4 % 34.0-4 6.6 Not Available [facility] [address] [place], [address], 10/25/2022 01:07:57 10/25/1910/24/2022 CBC WITH DIFFE RENTI AL/PL ATELE T MCV 98 fL 79-97 above high normal Not Available [facility] [address] [place], [address], 10/25/2022 01:07:57 10/25/1910/24/2022 CBC WITH DIFFE RENTI AL/PL ATELE T MCH 29.5 pg 26.6-3 3.0 Not Available [facility] [address] [place], [address], 10/25/2022 01:07:57 10/25/19 23 10/24/2022 CBC WITH DIFFE RENTI AL/PL ATELE T MCHC 30.2 g/dL 31.5-3 5.7 below low normal Not Available [facility] [address] [place], [address], 10/25/2022 01:07:57 10/25/19 23 10/24/2022 CBC WITH DIFFE RENTI AL/PL ATELE T RDW 18.4 % 11.5-1 4.5 above high normal Not Available [facility] [address] [place], [address], 10/25/2022 01:07:57 10/25/19 23 10/24/2022 CBC WITH DIFFE RENTI AL/PL ATELE T platelets 218 x10e3 /uL 150-45 0 Not Available [facility] [address] [place], [address], 10/25/2022 01:07:57 10/25/19 23 10/24/2022 CBC WITH DIFFE RENTI AL/PL ATELE T neutrophils 78 % notest b. Not Available [facility] [address] [place], [address], 10/25/2022 01:07:57 10/25/19 23 10/24/2022 CBC WITH DIFFE RENTI AL/PL ATELE T lymphs 13 % notest b. Not Available [facility] [address] [place], [address], 10/25/2022 01:07:57 10/25/19 23 10/24/2022 CBC WITH DIFFE RENTI AL/PL ATELE T monocytes 7 % notest b. Not Available [facility] [address] [place], [address], 10/25/2022 01:07:57 09/08/07 2210/24/2022 CBC WITH DIFFE RENTI AL/PL ATELE T eos 1 % notest b. Not Available [facility] [address] [place], [address], 10/25/2022 01:07:57 10/25/19 23 10/24/2022 CBC WITH DIFFE RENTI AL/PL ATELE T basos 1 % notest b. Not Available [facility] [address] [place], [address], 10/25/2022 01:07:57 10/25/1910/24/2022 CBC WITH DIFFE RENTI AL/PL ATELE T neutrophils (absolute) 8.2 x10e3 /uL 1.4-7. 0 above high normal Not Available [facility] [address] [place] [address], [address], 10/25/2022 01:07:57 10/25/1910/24/2022 CBC WITH DIFFE RENTI AL/PL ATELE T lymphs (absolute) 1.4 x10e3 /uL 0.7-3. 1 Not Available [facility] [address] [place], [address], 10/25/2022 01:07:57 10/25/1910/24/2022 CBC WITH DIFFE RENTI AL/PL ATELE T monocytes(ab solute) 0.7 x10e3 /uL 0.1-0. 9 Not Available [facility] [address] [place], [address], 10/25/2022 01:07:57 10/25/1910/24/2022 CBC WITH DIFFE RENTI AL/PL ATELE T eos (absolute) 0.1 x10e3 /uL 0.0-0. 4 Not Available [facility] [address] [place], [address], 10/25/2022 01:07:57 10/25/1910/24/2022 CBC WITH DIFFE RENTI AL/PL ATELE T baso (absolute) 0.1 x10e3 /uL 0.0-0. 2 Not Available [facility] [address] [place], [address], 10/25/2022 01:07:57 10/25/19 23 10/24/2022 CBC WITH DIFFE RENTI AL/PL ATELE T immature granulocytes 0.2 % notest b. Not Available [facility] [address] [place], [address], 10/25/2022 01:07:57 10/25/19 23 10/24/2022 CBC WITH DIFFE RENTI AL/PL ATELE T immature grans (abs) 0.0 x10e3 /uL 0.0-0. 1 Not Available [facility] [address] [place], [address], 10/25/2022 01:07:57 10/25/19 23 10/24/2022 CBC WITH DIFFE RENTI AL/PL ATELE T NRBC 0 % 0-0 Not Available [facility] [address] [place], [address], 10/25/2022 01:07:57 10/25/1910/25/2022 TSH+F REE T4 TSH 1.180 uIU/m L 0.450- 4.500 Not Available [facility] ([facility]) [address] [place], [address], 10/25/2022 08:29:08 10/25/19 23 10/25/2022 TSH+F REE T4 T4,free(dire ct) 1.30 NG/dL 0.82-1 .77 Not Available [facility] ([facility]) [address] [facility], [place], [address], 10/25/2022 08:29:08 10/25/19 23 10/25/2022 HEMOG LOBIN A1C hemoglobin A1C 5.4 % 4.8-5. 6 Predi abete s: 5.7 - 6.4 Diabe graham: >6.4 Glyce oz contr ol for adult s with diabe graham: <7.0 Not Available [facility] ([facility]) [address] [facility], [place], [address], 10/25/2022 08:29:09 11/01/19 24 11/01/2023 LIPID PANEL WITH LDL/H DL RATIO cholesterol, total 207 mg/dL 100-19 9 above high normal Not Available [facility] [address] [place] [address], [address], 11/01/2023 23:08:45 11/01/19 24 11/01/2023 LIPID PANEL WITH LDL/H DL RATIO triglyceride s 126 mg/dL 0-149 Not Available [facility] Department [address] [place] [address], [address], 11/01/2023 23:08:45 11/01/19 24 11/01/2023 LIPID PANEL WITH LDL/H DL RATIO HDL cholesterol 83 mg/dL 40-999 Not Available [facility] [address] [place] [address], [address], 11/01/2023 23:08:45 11/01/19 24 11/01/2023 LIPID PANEL WITH LDL/H DL RATIO VLDL cholesterol lauren 25 mg/dL 5-40 Not Available [facility] [address] [place] [address], [address], 11/01/2023 23:08:45 11/01/19 24 11/01/2023 LIPID PANEL WITH LDL/H DL RATIO LDL chol calc ([facility]) 117 mg/dL 0-99 above high normal Not Available [facility] [address] [place] [address], [address], 11/01/2023 23:08:45 11/01/19 24 11/01/2023 LIPID PANEL WITH LDL/H DL RATIO LDL/HDL ratio 1.4 0-3.2 Not Available [facility] Department [address] [place], [address], 11/01/2023 23:08:45 11/01/19 24 11/01/2023 COMP. METAB OLIC PANEL (14) glucose 117 mg/dL 70-99 above high normal Not Available [facility] [address] [place], [address], 11/01/2023 23:08:46 11/01/19 24 11/01/2023 COMP. METAB OLIC PANEL (14) BUN 7 mg/dL 6-24 Not Available [facility] [address] [place], [address], 11/01/2023 23:08:46 11/01/19 24 11/01/2023 COMP. METAB OLIC PANEL (14) creatinine <=0.46 mg/dL 0.76-1 .27 below low normal Not Available [facility] [address] [place], [address], 11/01/2023 23:08:46 11/01/19 24 11/01/2023 COMP. METAB OLIC PANEL (14) eGFR 114 >=60 Units for eGFR value s are mL/mi n/1.7 3 The eGFR Calcu latio n has not been valid ated for patie nts under the age of 18. If test resul ts are displ ayed for a patie nt under the age of 18, disre arely that value . Not Available [facility] [address] [place], [address], 11/01/2023 23:08:46 11/01/19 24 11/01/2023 COMP. METAB OLIC PANEL (14) BUN/creatini ne ratio 19 9-23 Not Available [facility] Department [address] [place], [address], 11/01/2023 23:08:46 11/01/19 24 11/01/2023 COMP. METAB OLIC PANEL (14) sodium 142 mmol/ L 134-14 4 Not Available [facility] [address] [place], [address], 11/01/2023 23:08:46 11/01/19 24 11/01/2023 COMP. METAB OLIC PANEL (14) potassium 2.9 mmol/ L 3.5-5. 2 below low normal Not Available [facility] [address] [place], [address], 11/01/2023 23:08:46 11/01/19 24 11/01/2023 COMP. METAB OLIC PANEL (14) chloride 100 mmol/ L 96-106 Not Available [facility] [address] [place] [address], [address], 11/01/2023 23:08:46 11/01/19 24 11/01/2023 COMP. METAB OLIC PANEL (14) carbon dioxide, total 25 mmol/ L 20-29 Not Available [facility] [address] [place] [address], [address], 11/01/2023 23:08:46 11/01/19 24 11/01/2023 COMP. METAB OLIC PANEL (14) calcium 7.9 mg/dL 8.7-10 .2 below low normal Not Available [facility] [address] [place] [address], [address], 11/01/2023 23:08:46 11/01/19 24 11/01/2023 COMP. METAB OLIC PANEL (14) protein, total 6.9 g/dL 6.0-8. 5 Not Available [facility] [address] [place], [address], 11/01/2023 23:08:46 11/01/19 24 11/01/2023 COMP. METAB OLIC PANEL (14) albumin 4.1 g/dL 3.8-4. 9 Not Available [facility] [address] [place] [address], [address], 11/01/2023 23:08:46 11/01/19 24 11/01/2023 COMP. METAB OLIC PANEL (14) globulin, total 2.8 g/dL 1.5-4. 5 Not Available [facility] [address] [place] [address], [address], 11/01/2023 23:08:46 11/01/19 24 11/01/2023 COMP. METAB OLIC PANEL (14) A/G ratio 1.0 1.2-2. 2 below low normal Not Available [facility] [address] [place] [address], [address], 11/01/2023 23:08:46 11/01/19 24 11/01/2023 COMP. METAB OLIC PANEL (14) bilirubin, total 2.6 mg/dL 0.0-1. 2 above high normal Not Available [facility] [address] [place] [address], [address], 11/01/2023 23:08:46 11/01/19 24 11/01/2023 COMP. METAB OLIC PANEL (14) alkaline phosphatase 359 IU/L 44-121 above high normal Not Available [facility] [address] [place] [address], [address], 11/01/2023 23:08:46 11/01/19 24 11/01/2023 COMP. METAB OLIC PANEL (14) AST (SGOT) 60 IU/L 0-40 above high normal Not Available [facility] [address] [place] [address], [address], 11/01/2023 23:08:46 11/01/19 24 11/01/2023 COMP. METAB OLIC PANEL (14) ALT (SGPT) 10 IU/L 0-32 Not Available [facility] [address] [place] [address], [address], 11/01/2023 23:08:46 11/01/19 24 11/01/2023 CBC WITH DIFFE RENTI AL/PL ATELE T WBC 12.9 x10e3 /uL 3.4-10 .8 above high normal Not Available [facility] [address] [place], [address], 11/01/2023 23:08:46 11/01/19 24 11/01/2023 CBC WITH DIFFE RENTI AL/PL ATELE T RBC 2.43 x10e6 /uL 3.77-5 .28 below low normal Not Available [facility] [address] [place], [address], 11/01/2023 23:08:46 11/01/19 24 11/01/2023 CBC WITH DIFFE RENTI AL/PL ATELE T hemoglobin 10.6 g/dL 11.1-1 5.9 below low normal Not Available [facility] [address] [place], [address], 11/01/2023 23:08:46 11/01/19 24 11/01/2023 CBC WITH DIFFE RENTI AL/PL ATELE T hematocrit 29.2 % 34.0-4 6.6 below low normal Not Available [facility] [address] [place], [address], 11/01/2023 23:08:46 11/01/19 24 11/01/2023 CBC WITH DIFFE RENTI AL/PL ATELE T MCV 120 fL 79-97 above high normal Not Available [facility] [address] [place], [address], 11/01/2023 23:08:46 11/01/19 24 11/01/2023 CBC WITH DIFFE RENTI AL/PL ATELE T MCH 43.6 pg 26.6-3 3.0 above high normal Not Available [facility] [address] [place], [address], 11/01/2023 23:08:46 11/01/19 24 11/01/2023 CBC WITH DIFFE RENTI AL/PL ATELE T MCHC 36.3 g/dL 31.5-3 5.7 above high normal Not Available [facility] [address] [place], [address], 11/01/2023 23:08:46 11/01/19 24 11/01/2023 CBC WITH DIFFE RENTI AL/PL ATELE T RDW 14.9 % 11.5-1 4.5 above high normal Not Available [facility] [address] [place], [address], 11/01/2023 23:08:46 11/01/19 24 11/01/2023 CBC WITH DIFFE RENTI AL/PL ATELE T platelets 235 x10e3 /uL 150-45 0 Not Available [facility] [address] [place], [address], 11/01/2023 23:08:46 11/01/19 24 11/01/2023 CBC WITH DIFFE RENTI AL/PL ATELE T neutrophils 74 % notest b. Not Available [facility] [address] [place], [address], 11/01/2023 23:08:46 11/01/19 24 11/01/2023 CBC WITH DIFFE RENTI AL/PL ATELE T lymphs 20 % notest b. Not Available [facility] [address] [place], [address], 11/01/2023 23:08:46 11/01/19 24 11/01/2023 CBC WITH DIFFE RENTI AL/PL ATELE T monocytes 5 % notest b. Not Available [facility] [address] [place], [address], 11/01/2023 23:08:46 11/01/19 24 11/01/2023 CBC WITH DIFFE RENTI AL/PL ATELE T eos 0 % notest b. Not Available [facility] [address] [place] [address], [address], 11/01/2023 23:08:46 11/01/19 24 11/01/2023 CBC WITH DIFFE RENTI AL/PL ATELE T basos 0 % notest b. Not Available [facility] [address] [place], [address], 11/01/2023 23:08:46 11/01/19 24 11/01/2023 CBC WITH DIFFE RENTI AL/PL ATELE T neutrophils (absolute) 9.5 x10e3 /uL 1.4-7. 0 above high normal Not Available [facility] [address] [place] [address], [address], 11/01/2023 23:08:46 11/01/19 24 11/01/2023 CBC WITH DIFFE RENTI AL/PL ATELE T lymphs (absolute) 2.6 x10e3 /uL 0.7-3. 1 Not Available [facility] [address] [place] [address], [address], 11/01/2023 23:08:46 11/01/19 24 11/01/2023 CBC WITH DIFFE RENTI AL/PL ATELE T monocytes(ab solute) 0.7 x10e3 /uL 0.1-0. 9 Not Available [facility] [address] [place] [address], [address], 11/01/2023 23:08:46 11/01/19 24 11/01/2023 CBC WITH DIFFE RENTI AL/PL ATELE T eos (absolute) 0.1 x10e3 /uL 0.0-0. 4 Not Available [facility] [address] [place] [address], [address], 11/01/2023 23:08:46 11/01/19 24 11/01/2023 CBC WITH DIFFE RENTI AL/PL ATELE T baso (absolute) 0.0 x10e3 /uL 0.0-0. 2 Not Available [facility] [address] [place] [address], [address], 11/01/2023 23:08:46 11/01/19 24 11/01/2023 CBC WITH DIFFE RENTI AL/PL ATELE T immature granulocytes 0.5 % notest b. Not Available [facility] [address] [place], [address], 11/01/2023 23:08:46 11/01/19 24 11/01/2023 CBC WITH DIFFE RENTI AL/PL ATELE T immature grans (abs) 0.1 x10e3 /uL 0.0-0. 1 Not Available [facility] [address] [place], [address], 11/01/2023 23:08:46 11/01/19 24 11/01/2023 CBC WITH DIFFE RENTI AL/PL ATELE T NRBC 0 % 0-0 Not Available [facility] [address] [place], [address], 11/01/2023 23:08:46 11/01/19 24 11/02/2023 TSH+F REE T4 TSH 1.860 uIU/m L 0.450- 4.500 Not Available [facility] ([facility]) [address] [place], [address], 11/02/2023 11:26:00 11/01/19 24 11/02/2023 TSH+F REE T4 T4,free(dire ct) 1.66 NG/dL 0.82-1 .77 Not Available [facility] ([facility]) [address] [place], [address], 11/02/2023 11:26:00 11/01/19 24 11/02/2023 HEMOG LOBIN A1C hemoglobin A1C 5.7 % 4.8-5. 6 above high normal Predi abete s: 5.7 - 6.4 Diabe graham: >6.4 Glyce oz contr ol for adult s with diabe graham: <7.0 Not Available [facility] ([facility]) [address] [facility], [place], [address], 11/02/2023 11:26:00 12/25/19 24 12/26/2023 SPECI MEN STATU S REPOR T specimen status report TNP Test not perfo rmed. No plasm a speci men recei latoya. TEST: [id number] PTH, Intac t Not Available [facility] ([facility]) [address] [facility], [place], [address], 01/06/2024 20:09:50 12/25/19 24 12/27/2023 LIPID PANEL WITH LDL/H DL RATIO cholesterol, total - mg/dL Test not perfo rmed. We have recei latoya your reque st for addit ional testi ng. We are not able to add the test( s) reque sted. Not Available [facility] ([facility]) [address] [facility], [place], [address], 12/27/2023 12:29:34 12/25/19 24 12/27/2023 LIPID PANEL WITH LDL/H DL RATIO triglyceride s - Test not perfo rmed Not Available [facility] ([facility]) [address] [facility], [place], [address], 12/27/2023 12:29:34 12/25/19 24 12/27/2023 LIPID PANEL WITH LDL/H DL RATIO HDL cholesterol - Test not perfo rmed Not Available [facility] ([facility]) [address] [facility], [place], [address], 12/27/2023 12:29:34 12/25/19 24 12/27/2023 LIPID PANEL WITH LDL/H DL RATIO VLDL cholesterol luaren TNP mg/dL Unabl e to calcu late resul t since non-n umeri c resul t obtai jose for compo nent test. Not Available [facility] ([facility]) [address] [facility], [place], [address], 12/27/2023 12:29:34 12/25/19 24 12/27/2023 COMP. METAB OLIC PANEL (14) glucose - mg/dL Test not perfo rmed. We have recei latoya your reque st for addit ional testi ng. We are not able to add the test( s) reque sted. Not Available [facility] ([facility]) [address] [place], [address], 12/27/2023 12:29:36 12/25/19 24 12/27/2023 COMP. METAB OLIC PANEL (14) BUN - Test not perfo rmed Not Available [facility] ([facility]) [address] [place], [address], 12/27/2023 12:29:36 12/25/19 24 12/27/2023 COMP. METAB OLIC PANEL (14) creatinine - Test not perfo rmed Not Available [facility] ([facility]) [address] [place], [address], 12/27/2023 12:29:36 12/25/19 24 12/27/2023 COMP. METAB OLIC PANEL (14) sodium - Test not perfo rmed Not Available [facility] ([facility]) [address] [place], [address], 12/27/2023 12:29:36 12/25/19 24 12/27/2023 COMP. METAB OLIC PANEL (14) potassium - Test not perfo rmed Not Available [facility] ([facility]) [address] [place], [address], 12/27/2023 12:29:36 12/25/19 24 12/27/2023 COMP. METAB OLIC PANEL (14) chloride - Test not perfo rmed Not Available [facility] ([facility]) [address] [place], [address], 12/27/2023 12:29:36 12/25/19 24 12/27/2023 COMP. METAB OLIC PANEL (14) carbon dioxide, total - Test not perfo rmed Not Available [facility] ([facility]) [address] [facility], [address], 12/27/2023 12:29:36 12/25/19 24 12/27/2023 COMP. METAB OLIC PANEL (14) calcium - Test not perfo rmed Not Available [facility] ([facility]) [address] [place], [address], 12/27/2023 12:29:36 12/25/19 24 12/27/2023 COMP. METAB OLIC PANEL (14) protein, total - Test not perfo rmed Not Available [facility] ([facility]) [address] [facility] [place], [address], 12/27/2023 12:29:36 12/25/19 24 12/27/2023 COMP. METAB OLIC PANEL (14) albumin - Test not perfo rmed Not Available [facility] ([facility]) [address] [facility] [place], [address], 12/27/2023 12:29:36 12/25/19 24 12/27/2023 COMP. METAB OLIC PANEL (14) bilirubin, total - Test not perfo rmed Not Available [facility] ([facility]) [address] [facility], [address], 12/27/2023 12:29:36 12/25/19 24 12/27/2023 COMP. METAB OLIC PANEL (14) alkaline phosphatase - Test not perfo rmed Not Available [facility] ([facility]) [address] [facility], [address], 12/27/2023 12:29:36 12/25/19 24 12/27/2023 COMP. METAB OLIC PANEL (14) AST (SGOT) - Test not perfo rmed Not Available [facility] ([facility]) [address] [facility], [address], 12/27/2023 12:29:36 12/25/19 24 12/27/2023 COMP. METAB OLIC PANEL (14) ALT (SGPT) - Test not perfo rmed Not Available [facility] ([facility]) [address] [facility] [address], [place], [address], 12/27/2023 12:29:36 12/25/19 24 12/26/2023 MAYNOR EN AUTHO RIZAT ION written authorizatio n Commjuan t Maynor en Autho rizat ion Recei latoya. Autho rizat ion recei latoya from PER ORIGI NAL ORDER 12-25 Logge d by Dorys Ruiz as Not Available [facility] ([facility]) [address] [facility] [address], [place], [address], 12/27/2023 12:29:37 12/25/19 24 12/26/2023 CBC WITH DIFFE RENTI AL/PL ATELE T WBC 12.5 x10e3 /uL 3.4-10 .8 above high normal Not Available [facility] ([facility]) [address] [facility] [address], [place], [address], 12/27/2023 12:29:38 12/25/19 24 12/26/2023 CBC WITH DIFFE RENTI AL/PL ATELE T RBC 2.68 x10e6 /uL 3.77-5 .28 alert low Red blood cells appea r sligh tly agglu tinat ed Not Available [facility] ([facility]) [address] [facility] [address], [place], [address], 12/27/2023 12:29:38 12/25/19 24 12/26/2023 CBC WITH DIFFE RENTI AL/PL ATELE T hemoglobin 11.8 g/dL 11.1-1 5.9 Not Available [facility] ([facility]) [address] [facility], [place], [address], 12/27/2023 12:29:38 12/25/19 24 12/26/2023 CBC WITH DIFFE RENTI AL/PL ATELE T hematocrit 31.9 % 34.0-4 6.6 below low normal Not Available [facility] ([facility]) [address] [facility] [address], [place], [address], 12/27/2023 12:29:38 12/25/19 24 12/26/2023 CBC WITH DIFFE RENTI AL/PL ATELE T MCV 119 fL 79-97 above high normal Not Available [facility] ([facility]) [address] [facility] [address], [place], [address], 12/27/2023 12:29:38 12/25/19 24 12/26/2023 CBC WITH DIFFE RENTI AL/PL ATELE T MCH 44.0 pg 26.6-3 3.0 above high normal Not Available [facility] ([facility]) [address] [facility], [place], [address], 12/27/2023 12:29:38 12/25/19 24 12/26/2023 CBC WITH DIFFE RENTI AL/PL ATELE T MCHC 37.0 g/dL 31.5-3 5.7 above high normal Not Available [facility] ([facility]) [address] [place], [address], 12/27/2023 12:29:38 12/25/19 24 12/26/2023 CBC WITH DIFFE RENTI AL/PL ATELE T RDW 13.1 % 11.7-1 5.4 Not Available [facility] ([facility]) [address] [place], [address], 12/27/2023 12:29:38 12/25/19 24 12/26/2023 CBC WITH DIFFE RENTI AL/PL ATELE T platelets 350 x10e3 /uL 150-45 0 Not Available [facility] ([facility]) [address] [place], [address], 12/27/2023 12:29:38 12/25/19 24 12/26/2023 CBC WITH DIFFE RENTI AL/PL ATELE T neutrophils 79 % notest ab. Not Available [facility] ([facility]) [address] [facility], [place], [address], 12/27/2023 12:29:38 12/25/19 24 12/26/2023 CBC WITH DIFFE RENTI AL/PL ATELE T lymphs 13 % notest ab. Not Available [facility] ([facility]) [address] [facility], [place], [address], 12/27/2023 12:29:38 12/25/19 24 12/26/2023 CBC WITH DIFFE RENTI AL/PL ATELE T monocytes 6 % notest ab. Not Available [facility] ([facility]) [address] [facility] [address], [place], [address], 12/27/2023 12:29:38 12/25/19 24 12/26/2023 CBC WITH DIFFE RENTI AL/PL ATELE T eos 1 % notest ab. Not Available [facility] ([facility]) [address] [facility] [address], [place], [address], 12/27/2023 12:29:38 12/25/19 24 12/26/2023 CBC WITH DIFFE RENTI AL/PL ATELE T basos 0 % notest ab. Not Available [facility] ([facility]) [address] [facility], [place], [address], 12/27/2023 12:29:38 12/25/19 24 12/26/2023 CBC WITH DIFFE RENTI AL/PL ATELE T neutrophils (absolute) 9.9 x10e3 /uL 1.4-7. 0 above high normal Not Available [facility] ([facility]) [address] [facility] [address], [place], [address], 12/27/2023 12:29:38 12/25/19 24 12/26/2023 CBC WITH DIFFE RENTI AL/PL ATELE T lymphs (absolute) 1.7 x10e3 /uL 0.7-3. 1 Not Available [facility] ([facility]) [address] [facility] [address], [place], [address], 12/27/2023 12:29:38 12/25/19 24 12/26/2023 CBC WITH DIFFE RENTI AL/PL ATELE T monocytes(ab solute) 0.7 x10e3 /uL 0.1-0. 9 Not Available [facility] ([facility]) [address] [facility], [place], [address], 12/27/2023 12:29:38 12/25/19 24 12/26/2023 CBC WITH DIFFE RENTI AL/PL ATELE T eos (absolute) 0.1 x10e3 /uL 0.0-0. 4 Not Available [facility] ([facility]) [address] [facility], [place], [address], 12/27/2023 12:29:38 12/25/19 24 12/26/2023 CBC WITH DIFFE RENTI AL/PL ATELE T baso (absolute) 0.1 x10e3 /uL 0.0-0. 2 Not Available [facility] ([facility]) [address] [facility], [place], [address], 12/27/2023 12:29:38 12/25/19 24 12/26/2023 CBC WITH DIFFE RENTI AL/PL ATELE T immature granulocytes 1 % notest ab. Not Available [facility] ([facility]) [address] [place], [address], 12/27/2023 12:29:38 12/25/19 24 12/26/2023 CBC WITH DIFFE RENTI AL/PL ATELE T immature grans (abs) 0.1 x10e3 /uL 0.0-0. 1 Not Available [facility] ([facility]) [address] [place], [address], 12/27/2023 12:29:38 12/25/19 24 12/26/2023 CBC WITH DIFFE RENBUSTER AL/PL ATELE T hematology comments: NOTE: Verif ied by deon vazquez Not Available [facility] ([facility]) [address] [facility] [address], [place], [address], 12/27/2023 12:29:38 12/25/19 24 01/01/2024 HOMOC YST(E )INE+ MMA methylmaloni c acid, serum 185 nmol/ L 0-378 Not Available [facility] ([facility]) [address] [facility] [address], [place], [address], 01/06/2024 20:09:50 12/25/19 24 01/06/2024 HOMOC YST(E )INE+ MMA homocysteine , serum 176.4 umol/ L 5.1-13 .9 alert high Resul ts confi rmed on dilut ion. Not Available [facility] ([facility]) [address] [facility], [place], [address], 01/06/2024 20:09:50 12/25/19 24 12/26/2023 VITAM IN B12 AND FOLAT E vitamin B12 1153 pg/mL 232-12 45 Not Available [facility] ([facility]) [address] [facility] [address], [place], [address], 01/06/2024 20:09:52 12/25/19 24 12/26/2023 VITAM IN B12 AND FOLAT E folate (folic acid), serum 3.7 NG/mL >3.0 A serum folat e yen ntrat ion of less than 3.1 ng/mL is consi dered to repre sent clini lauren defic iency . Not Available [facility] ([facility]) [address] [facility] [address], [place], [address], 01/06/2024 20:09:52 12/25/19 24 12/26/2023 IRON AND TIBC iron bind.cap.(TI BC) 345 ug/dL 250-45 0 Not Available [facility] ([facility]) [address] [place], [address], 01/06/2024 20:09:53 12/25/19 24 12/26/2023 IRON AND TIBC UIBC 158 ug/dL 131-42 5 Not Available [facility] ([facility]) [address] [place], [address], 01/06/2024 20:09:53 12/25/19 24 12/26/2023 IRON AND TIBC iron 187 ug/dL 27-159 above high normal Not Available [facility] ([facility]) [address] [place], [address], 01/06/2024 20:09:53 12/25/19 24 12/26/2023 IRON AND TIBC iron saturation 54 % 15-55 Not Available [facility] ([facility]) [address] [facility] [address], [place], [address], 01/06/2024 20:09:53 12/25/19 24 12/26/2023 GGT GGT 2164 IU/L 0-60 alert high Resul ts confi rmed on dilut ion. Not Available [facility] ([facility]) [address] [place], [address], 01/06/2024 20:09:53 12/25/19 24 12/26/2023 PTH, INTAC T PTH, intact - pg/mL Test not perfo rmed. No plasm a speci men recei latoya. Not Available [facility] ([facility]) [address] [place], [address], 01/06/2024 20:09:54 12/25/19 24 12/26/2023 VITAM IN D, 25-HY DROXY vitamin D, 25-hydroxy 4.5 NG/mL 30.0-1 00.0 below low normal Vitam in D defic iency has been defin ed by the Insti tute of Medic ine and an Endoc rine Socie ty pract ice guide line as a level of serum 25-OH vitam in D less than 20 ng/mL (1,2) . The Endoc rine Socie ty went on to furth er defin e vitam in D insuf ficie ncy as a level betwe en 21 and 29 ng/mL (2). 1. IOM (Inst itute of Medic ine). 2010. Dieta ry refer ence intak es for calci um and D. Morales cul[place]: The [facility] Press . 2. Bryan k MF, Binteresa ey [place], Bisch off-F errar i FERNANDEZ, et al. Evalu ation , treat ment, and preve ntion of vitam in D defic iency : an Endoc rine Socie ty clini lauren pract ice guide line. JCEM. 2010; 96(7) :1911 -30. Not Available [facility] ([facility]) [address] [facility] [address], [place], [address], 01/06/2024 20:09:55 10/27/19 23 10/26/2022 XR, hand, 3 or more view No observ ation record ed. [address], [address], 10/29/2022 12:09:26 11/17/19 23 11/15/2022 XR, lumbo sacra l spine , 2 or 3 view No observ ation record ed. [address], [address], 11/23/2022 10:51:15 11/23/19 23 11/21/2022 MAMMO , scree christianne, bilat eral No observ ation record ed. [email or web address], [address], 11/22/2022 14:04:13 01/27/20 23 01/25/2023 CT, lumba r spine , w/o contr ast No observ ation record ed. [address] [place], [address], 01/29/2023 09:20:45 02/05/20 23 02/02/2023 MRI, lumba r spine , w/wo contr ast No observ ation record ed. [address], [place], [address], 02/07/2023 09:32:32 02/11/20 23 02/10/2023 XR, ribs, unila teral , 2 view No observ ation record ed. [address], [place], [address], 02/19/2023 18:08:58 04/05/19 24 04/04/2023 MAMMO , diagn ostic , unila teral No observ ation record ed. [address], [place], [address], 04/16/2023 12:42:53 05/08/19 24 05/07/2023 MRI, breas t, bilat eral, w/ contr ast No observ ation record ed. [address], [place], [address], 05/10/2023 15:28:34 05/14/19 24 04/04/2023 MAMMO , diagn ostic , unila teral No observ ation record ed. [address], [place], [address], 05/15/2023 10:19:23 05/30/19 24 01/25/2023 CT, lumba r spine , w/wo contr ast No observ ation record ed. [address], [place], [address], 05/30/2023 14:32:25 07/24/19 24 07/20/2023 DEXA, axial skele ton + verte bral fract ure asses sment No observ ation record ed. [address], [place], [address], 07/26/2023 14:01:35 12/04/19 24 12/04/2023 MAMMO , diagn ostic , digit al, bilat eral No observ ation record ed. [facility] [address], [place], [address], 12/11/2023 15:50:46 Result Notes None recorded. Problems Name Problem SNOMED Code Status Onset Date Resolution Date Notes Provider Name and Address Organization Details Recorded Time Influenza vaccinati on declined 607564949 Active 2017 Not Available [facility] 2 01:31:09 Nicotine dependenc e 76886140 Active 2017 Not Available [facility] 2 01:31:09 Body mass index 25-29 - overweigh t 940618485 Active 2017 Not Available [facility] 2 01:31:09 Continuou s chronic alcoholis m 556778553 Active 2018 LUCIA GARLAND Attn: Accounting ,[address] [place], [address] , [place] [facility] 2 14:32:15 Fibrocyst ic disease of breast 33367898 Active 2018 Not Available [facility] 2 01:31:09 Spinal stenosis of lumbar region 95548576 Active 2019 LUCIA GARLAND Attn: Accounting ,[address] [place], [address] , [place] [facility] 2 14:32:24 Degenerat ion of lumbar intervert ebral disc 16452420 Active 2019 Not Available [facility] 2 01:31:09 History of lumbar laminecto my 73510784780 562640 Active 2019 LUCIA GARLAND Attn: Accounting ,[address] [place], [address] , [place] [facility] 2 14:32:30 Liver enzymes level above reference range 086913352 Active 2019 LUCIA GARLAND Attn: Accounting ,[address] [facility], [place], [address] , [place] [facility] 2 12:26:00 Tobacco dependenc e syndrome 13120287 Active 2021 LUICA GARLAND Attn: Accounting ,[address] [facility], [place], [address] , [facility] - [facility] 2 14:32:20 Screening for malignant neoplasm of colon Active 2021 cologuard negative 11/2021, repeat 2024 LUCIA GARLAND Attn: Accounting ,[address] [facility], [place], [address] , [facility] - [facility] 2 09:29:23 Essential hypertens ion 47818095 Active 2022 LUCIA GARLAND Attn: Accounting ,[address] [facility], [place], [address] , [facility] - [facility] 3 13:59:16 Hyperlipi demia 33304561 Active 2022 LUCIA GARLAND Attn: Accounting ,[address] [facility], [place], [address] , [facility] - [facility] 3 12:02:44 Gastroeso phageal reflux disease without esophagit is 788417018 Active 2023 LUCIA GARLAND Attn: Accounting ,[address] [place], [address] , [place] [facility] 4 12:19:01 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 Please review this document and add these problems to the patient's chart manually as needed. Problem Notes None recorded. Procedures Surgical History Date Name Laterality Status Provider Name and Address Organization Details Recorded Time 10/29/19 24 Carpal tunnel surgery completed Norma Castillo [place] [facility] 11/01/2023 10:15:36 12/27/19 22 Date of Last Pap Smear completed LUCIA GARLAND Attn: Accounting,[address] [facility], [place], [address], [facility] 01/01/2022 14:25:58 12/27/19 22 Date of Last Mammogram completed LUCIA GARLAND Attn: Accounting,[address] [facility], [place], [address], [facility] - [facility] 01/01/2022 14:26:10 04/20/19 20 excision of lamina of lumbar vertebra for decompression of spinal cord completed Shwetha Medina MD Attn: Accounting,[address] [facility], [place], [address], [facility] 05/25/2019 12:51:52 Knee Surgery completed Shwetha Medina MD Attn: Accounting,[address] [facility], [place], [address], [facility] 11/05/2017 14:15:25 Breast Surgery completed Shwetha Medina MD Attn: Accounting,[address] [facility], [place], [address], [facility] 04/07/2019 12:10:52 ligation of bilateral fallopian tubes completed LUCIA GARLAND Attn: Accounting,[address] [facility], [place], [address], [facility] 10/24/2022 14:14:41 Imaging Results Imaging Date Name Status [facility]Modified by [facility] Details LastModified Time 10/26/2022 XR, hand, 3 or more view completed [address] [place] [address], [address], 10/29/2022 12:09:26 11/15/2022 XR, lumbosacral spine, 2 or 3 view completed [address] [place] [address], [address], 11/23/2022 10:51:15 11/21/2022 MAMMO, screening, bilateral completed [address], [place], [address], 11/22/2022 14:04:13 01/25/2023 CT, lumbar spine, w/o contrast completed [address], [place], [address], 01/29/2023 09:20:45 02/02/2023 MRI, lumbar spine, w/wo contrast completed [address], [place], [address], 02/07/2023 09:32:32 02/10/2023 XR, ribs, unilateral, 2 view completed [address], [place], [address], 02/19/2023 18:08:58 04/04/2023 MAMMO, diagnostic, unilateral completed [address], [place], [address], 04/16/2023 12:42:53 05/07/2023 MRI, breast, bilateral, w/ contrast completed [address], [place], [address], 05/10/2023 15:28:34 04/04/2023 MAMMO, diagnostic, unilateral completed [address], [place], [address], 05/15/2023 10:19:23 01/25/2023 CT, lumbar spine, w/wo contrast completed [address], [place], [address], 05/30/2023 14:32:25 07/20/2023 DEXA, axial skeleton + vertebral fracture assessment completed [address], [place], [address], 07/26/2023 14:01:35 12/04/2023 MAMMO, diagnostic, digital, bilateral completed [facility] [address], [place], [address], 12/11/2023 15:50:46 Procedure Notes None recorded. Medical Equipment None Reported. Allergies Allergen ID Allergen Name Allergen Category Reaction Reaction Severity Criticality Documentation Date Start Date Code Code System Note Provider Name and Address Organization Details Recorded Time [id number] clindamyc in Not available hives severe Not available 11/05/2017 2582 RxNorm Not Available Not Available Not Available Medications Name Sig Start Date Stop Date Status Note LastModified by Organization Details LastModified Time multivitami n tablet Take 1 tablet every day by oral route as directed for 90 days. 2021 active Not Available Not Available Not Avai lable cyclobenzap rine 10 mg tablet Take 1 tablet 3 times a day by oral route as directed for 14 days. 06/30 completed Not Available Not Available Not Available amoxicillin 500 mg capsule 04/07 completed Not Available Not Available Not Available atorvastati n 20 mg tablet TAKE 1 TABLET BY MOUTH ONCE DAILY AT BEDTIME active Not Available Not Available No t Available cetirizine 10 mg tablet TAKE 1 TABLET BY MOUTH ONCE DAILY IN THE MORNING active Not Available Not Available No t Available Tab-A-Fela tablet 06/30 completed Not Available Not Available Not Available hydrocodone 5 mg-acetamin ophen 325 mg tablet TAKE 1 TABLET BY MOUTH EVERY 6 HOURS NEEDED FOR 7 DAYS 05/09 completed Not Available Not Available Not Available thiamine HCl (vitamin B1) 100 mg tablet Take 1 tablet every day by oral route as directed for 30 days. 05/02 completed Not Available Not Available Not Available sulfamethox azole 800 mg-trimetho prim 160 mg tablet 05/24 completed Not Available Not Available Not Available aspirin 81 mg tablet,amanda yed release TAKE 1 TABLET BY MOUTH ONCE DAILY IN THE MORNING 2023 active Not Available Not Available Not Avai lable tramadol 50 mg tablet TAKE 1 TABLET BY MOUTH EVERY 6 HOURS NEEDED FOR PAIN 10/31 completed Not Available Not Available Not Available pantoprazol e 20 mg tablet,amanda yed release TAKE 1 TABLET BY MOUTH ONCE DAILY IN THE MORNING 10/31 completed Not Available Not Available Not Available alprazolam 0.5 mg tablet 04/07 completed Not Available Not Available Not Available calcium 600 mg (as calcium carbonate 1,500 mg) tablet Take 2 tablets every day by oral route with meal(s) for 30 days. 2023 active Not Available Not Available Not Avai lable chlordiazep oxide 5 mg capsule 04/04 completed Not Available Not Available Not Available alprazolam 0.25 mg tablet 04/04 completed Not Available Not Available Not Available potassium chloride ER 20 mEq tablet,exte nded release(par t/cryst) TAKE 2 BY MOUTH ONCE DAILY WITH MEALS FOR 14 DAYS active Not Available Not Available No t Available famotidine 20 mg tablet TAKE 1 TABLET BY MOUTH ONCE DAILY IN THE MORNING 2024 active Not Available Not Available Not Avai lable magnesium oxide 400 mg (241.3 mg magnesium) tablet TAKE 1 TABLET BY MOUTH TWICE DAILY DIRECTED FOR 30 DAYS 06/30 completed Not Available Not Available Not Available chlordiazep oxide 25 mg capsule One PO Q 8 hours PRN with withdrawa l symptoms (Day 1)THENOne PO Q 12 hours PRN with withdrawa l symptoms (Days 2-5) 09/17 completed Not Available Not Available Not Available diazepam 2 mg tablet TAKE 1 TO 2 TABLETS BY MOUTH 30 MINUTES PRIOR TO MRI FOR ANXIETY 10/31 completed Not Available Not Available Not Available lidocaine 5 % topical patch APPLY 1 PATCH BY TOPICAL ROUTE ONCE DAILY (MAY WEAR UP TO 12HOURS.) 10/31 completed Not Available Not Available Not Available losartan 25 mg tablet TAKE 1 TABLET BY MOUTH ONCE DAILY IN THE MORNING 2024 active Not Available Not Available Not Avai lable montelukast 10 mg tablet Take 1 tablet every day by oral route as directed for 90 days. 06/30 completed PRN Not Available Not Available Not Available albuterol sulfate HFA 90 mcg/actuati on aerosol inhaler INHALE 2 PUFFS BY MOUTH EVERY 4 HOURS NEEDED FOR 30 DAYS active Not Available Not Available No t Available tamoxifen 20 mg tablet TAKE 1 TABLET BY MOUTH ONCE DAILY active Not Available Not Available No t Available diazepam 5 mg tablet TAKE 1 TABLET BY MOUTH ONCE FOR 1 DOSE BEFORE MRI 10/31 completed Not Available Not Available Not Available oxycodone 5 mg tablet 07/19 completed Not Available Not Available Not Available chlorhexidi ne gluconate 0.12 % mouthwash 04/07 completed Not Available Not Available Not Available Aleve 06/30 completed Not Available Not Available Not Available cholecalcif nahid (vitamin D3) 1,250 mcg (50,000 unit) capsule TAKE 1 CAPSULE BY MOUTH ONCE A WEEK WITH MEALS active Not Available Not Available No t Available potassium chloride ER 20 mEq tablet,exte nded release TAKE 2 TABLETS BY MOUTH EVERY DAY WITH MEAL(S) active Not Available Not Available No t Available naloxone 4 mg/actuatio n nasal spray CALL 911. ADMINISTE R A SINGLE SPRAY INTRANASA LLY INTO ONE NOSTRIL UPON SIGNS OF OPIOID OVERDOSE. MAY REPEAT AFTER 3 MINUTES IF NO RESPONSE. 10/31 completed Not Available Not Available Not Available Tab-A-Fela 400 mcg tablet TAKE 1 TABLET BY MOUTH ONCE DAILY DIRECTED FOR 90 DAYS 10/31 completed Not Available Not Available Not Available Vitals Date Recorded Body height Provider Name an d Address Organization Details Last Updated DateTime 11/12/2022 160.02 cm Carmel Bernardo CMA [facility] 11/13/19 10:16:28 Date Recorded Body mass index (BMI) Body weight Provider Name and Address Organization Details Last Updated DateTime 11/12/2022 28.4 kg/m2 43472.58 g Carmel Bernardo CMA [facility] 11/12/2022 10:16:42 Date Recorded Oxygen saturation Oxygen saturation in Arterial blood by Pulse oximetry Provider Name and Address Organization Details Last Updated DateTime 11/12/2022 98 % 98 % Carmel Bernardo CMA [facility] 11/12/2022 10:18:36 Date Recorded Heart rate Provider Name an d Address Organization Details Last Updated DateTime 11/12/2022 84 /min Carmel Bernardo CMA [facility] 11/13/19 10:18:40 Date Recorded Respiratory rate Provider Name a nd Address Organization Details Last Updated DateTime 11/12/2022 16 /min Carmel Bernardo CMA [facility] 11/13/19 10:18:41 Date Recorded Body temperature Provider Name a nd Address Organization Details Last Updated DateTime 11/12/2022 98 [degF] Carmel Az, [place] - [facility] 11/13/19 10:18:43 Date Recorded Body height Provider Name an d Address Organization Details Last Updated DateTime 02/15/2023 160.02 cm Carmel GeovannaKRAIG jaramillo [facility] 12:48:44 Date Recorded Body mass index (BMI) Body weight Provider Name and Address Organization Details Last Updated DateTime 02/15/2023 28.2 kg/m2 53160.29 g Carmel Austin MA [facility] 1 12:52:30 Date Recorded Oxygen saturation Oxygen saturation in Arterial blood by Pulse oximetry Provider Name and Address Organization Details Last Updated DateTime 02/15/2023 98 % 98 % Carmel Austin MA [facility] 02/15/2023 12:53:24 Date Recorded Heart rate Respiratory rate Provider N bernie and Address Organization Details Last Updated DateTime 02/15/2023 86 /min 16 /min Carmel Austin MA [facility] 02/15/2023 12:53:26 Date Recorded Body temperature Provider Name a nd Address Organization Details Last Updated DateTime 02/15/2023 98.4 [degF] Carmel Austin MA [facility] 02/16/20 12:53:29 Date Recorded Body height Provider Name an d Address Organization Details Last Updated DateTime 03/22/2023 160.02 cm Gina Whitmanarza [facility] 03/22/2023 11:45:49 Date Recorded Body mass index (BMI) Body weight Provider Name and Address Organization Details Last Updated DateTime 03/22/2023 28.4 kg/m2 54717.58 g Gina Mcdonald [facility] 11:51:31 Date Recorded Oxygen saturation Oxygen saturation in Arterial blood by Pulse oximetry Provider Name and Address Organization Details Last Updated DateTime 03/22/2023 99 % 99 % LUCIA GARLAND Attn: Accounting,[address] [place], [address], [place] - [facility] 03/22/2023 12:13:19 Date Recorded Heart rate Provider Name an d Address Organization Details Last Updated DateTime 03/22/2023 85 /min LUCIA GARLAND Attn: Accounting,[address] [facility], [place], [address], [place] - [facility] 03/22/2023 12:13:23 Date Recorded Respiratory rate Provider Name a nd Address Organization Details Last Updated DateTime 03/22/2023 18 /min LUCIA GARLAND Attn: Accounting,[address] [facility], [place], [address], [place] - [facility] 03/22/2023 12:13:27 Date Recorded Body height Provider Name an d Address Organization Details Last Updated DateTime 11/01/2023 160.02 cm KRAIG Godoy - [facility] 10:12:28 Date Recorded Body mass index (BMI) Body weight Provider Name and Address Organization Details Last Updated DateTime 11/01/2023 28.9 kg/m2 38689.96 g KRAIG Godoy - [facility] 0 11/01/2023 10:15:05 Date Recorded Oxygen saturation Oxygen saturation in Arterial blood by Pulse oximetry Provider Name and Address Organization Details Last Updated DateTime 11/01/2023 98 % 98 % KRAIG Godoy - [facility] 11/01/2023 10:15:09 Date Recorded Heart rate Provider Name an d Address Organization Details Last Updated DateTime 11/01/2023 87 /min KRAIG Godoy [facility] 4 10:15:12 Date Recorded Respiratory rate Provider Name a nd Address Organization Details Last Updated DateTime 11/01/2023 17 /min KRAIG Godoy - [facility] 4 10:15:16 Date Recorded Systolic blood pressure Diastolic blood pressure Provider Name and Address Organization Details Last Updated DateTime 11/12/2022 128 mm[Hg] 84 mm[Hg] Carmel Bernardo CMA [place] - [facility] 11/12/2022 10:18:51 Date Recorded Systolic blood pressure Diastolic blood pressure Provider Name and Address Organization Details Last Updated DateTime 02/15/2023 134 mm[Hg] 76 mm[Hg] KRAIG Cao - [facility] 02/15/2023 12:53:36 Date Recorded Systolic blood pressure Diastolic blood pressure Provider Name and Address Organization Details Last Updated DateTime 03/22/2023 145 mm[Hg] 81 mm[Hg] Gina Mcdonald [facility] 03/22/2023 11:51:28 Date Recorded Systolic blood pressure Diastolic blood pressure Provider Name and Address Organization Details Last Updated DateTime 11/01/2023 137 mm[Hg] 78 mm[Hg] Norma Castillo MA [facility] 11/01/2023 10:15:01 Social History Question Answer Notes LastModified by Organizat ion Details LastModified Time Tobacco Smoking Status Current Every Day Smoker Meghan Cagle MA null, [facility] 11/05/2017 14:01:10 Do You Have An Advance Directive? No Information not available 11/05/2017 What Is Your Level Of Alcohol Consumption? Moderate 4 Drinks Three Times A Week. Information not available 11/05/2017 Are You Blind Or Do You Have Difficulty Seeing? No Information not available 06/30/2020 What Is Your Level Of Caffeine Consumption? Occasional Information not available 11/05/2017 How Much Tobacco Do You Chew? None Information not available 11/05/2017 In The 14 Days Before Symptom Onset, Have You Had Close Contact With A Laboratory-confir med COVID-19 While That Case Was Ill? No Information not available 06/30/2020 In The 14 Days Before Symptom Onset, Have You Had Close Contact With A Person Who Is Under Investigation For COVID-19 While That Person Was Ill? No Information not available 06/30/2020 Have You Been To An Area Known To Be High Risk For COVID-19? No Information not available 11/14/2021 Are You Deaf Or Do You Have Serious Difficulty Hearing? No Information not available 06/30/2020 What Type Of Diet Are You Following? REGULAR Information not available 11/05/2017 Do You Or Have You Ever Used E-cigarettes Or Vape? Never Used Electronic Cigarettes Information not available 11/07/2018 What Is Your Occupation? Unemployed Information not available 11/05/2017 Are There Any Guns Present In Your Home? No Information not available 11/05/2017 Hard Of Hearing Or Deaf In One Or Both Ears? No Information not available 11/05/2017 Legally Blind In One Or Both Eyes? No Information no t available 11/05/2017 Marital Status Single Informatio n not available 11/05/2017 What Was The Date Of Your Most Recent Tobacco Screening? 11/01/2023 Information not available 11/01/2023 What Is Your Current Pack Years? 10packyears Information not available 06/30/2020 Performs Monthly Self-breast Exam? Yes Information no t available 11/05/2017 What Is Your Relationship Status? Information not available 11/14/2021 Seat Belts Used Routinely Yes Information not available 11/05/2017 Smoke Alarm In Home Yes Information not available 11/05/2017 Do You Have Smoke And Carbon Monoxide Detectors In Your Home? Yes Information not available 06/30/2020 At What Age Did You Start Smoking Tobacco? 17 Information not available 06/30/2020 Are You Passively Exposed To Smoke? Yes Information no t available 11/14/2021 Do You Or Have You Ever Used Smokeless Tobacco? Never Used Smokeless Tobacco Information not available 11/07/2018 How Much Tobacco Do You Smoke? 0.25 PPD Information not available 04/07/2019 Do You Feel Stressed (tense, Restless, Nervous, Or Anxious, Or Unable To Sleep At Night)? [id number] Information not available 11/14/2021 Do You Use Sunscreen Routinely? No Information not available 11/05/2017 Has Tobacco Cessation Counseling Been Provided? Yes Information not available 06/30/2020 On What Date Was Tobacco Cessation Counseling Provided? 11/01/2023 Information not available 11/01/2023 How Many Years Have You Smoked Tobacco? 30 Information not available 11/05/2017 Do You Or Have You Ever Used Any Other Forms Of Tobacco Or Nicotine? No Information not available 06/30/2020 Sex: Female Functional Status Question Answer Note LastModified by Organizat ion Details LastModified Time Are you able to care for yourself? Yes Information not available 06/30/2020 What is your exercise level? Occasional Information not available 11/05/2017 Mental Status None recorded. Family History Relationship Description Onset Age of this Age Resolved Age Notes LastModified by Organization Details LastModified Time Mother Diabetes mellitus hdoverma Not available 2017 14:06:58 Father Diabetes mellitus hdoverma Not available 2017 14:07:01 Father Malignant tumor of prostate hdoverma Not available 2017 14:07:22 Medical History Condition Response Coronary Artery Disease N Other N Atrial Fibrillation N High Blood Pressure N Thyroid Problems N Kidney or Bladder Problems N GI Problems N Depression N COPD N Blood Clots N Skin Problems N Anemia N Heart Attack ([place]) N Diabetes N Anxiety Disorder N Muscle, Joint, or Bone Problems N Seizures/Epilepsy N Acid Reflux (GERD) N Cancer N Stroke N Asthma N Allergies N High Cholesterol N Hepatitis N Liver Disease N Headaches N Osteoporosis N Heart Failure N Gynecological History Statement/Question Response Date of Last Mammogram 12/26/2021 Date of LMP 04/20/2019 Menses Monthly N Date of Last Pap Smear 12/26/2021 Duration of Flow (days) 3 [age] Menarche [age] Current Control Method Tubal Ligat ion Age at First Child 17 LMP Approximate Obstetrics History GPAL:G 4 P 3 0 1 3 Type Value Full Term 3 Induced 1 Living 3 Total 4 Immunizations Vaccine Type Date Status Note Provider Nam e and Address Organization Details Recorded Time Tdap 02/18/2015 completed Not Available [facility] 07/22/2021 01:31:09 Past Encounters Encounter ID Performer Location Encounter Start Date Encounter Closed Date Diagnosis/Indication Diagnosis SNOMED-CT Code Diagnosis ICD10 Code Diagnosis Note [id number] MD Silva Lee (Adult Med) [address] [place] [address] 86211-468 0 11/05/2017 13:39:30 11/05/2017 14:32:26 General examination of patient 447903167 Z00.01 Nicotine dependence 5629 4008 F17.200 Influenza vaccination declined 404280894 Z28.21 Screening mammography 24 019659 Z12.31 Screening for malignant neoplasm of cervix 025524757 Z12.4 [id number] JUANITA Johns (Adult Med) [address] [place] [address] 40297-686 0 12/06/2017 10:54:15 12/09/2017 11:47:48 Gynecologic examination 86589083 Z01.411 Body mass index 25-29 - overweight 731879303 Z68.26 Advised 30 minutes of exercise 5 days/week Advised to not drink her calories Advised 3 balanced meals/day with plenty of fruits and vegtables [id number] MD Silva Lee (Adult Med) [address] [place] [address] 17143-555 0 12/17/2017 11:09:41 12/17/2017 11:55:48 Hypokalemia 31352376 E87.6 Apparently this is chronic Mammography abnormal 168 380122 R92.8 Discussed Influenza vaccination declined 655027695 Z28.21 [id number] MD Silva Lee (Adult Med) [address] [place] [address] 17056-108 0 04/04/2018 12:08:19 04/07/2018 08:47:42 Continuous chronic alcoholism 494127445 F10.20 Detailed discussion She is not interested in inpatient treatment or similar options, she is agreeable to a short course of Librium and a follow up appointmen t with the Psychiatri .I have explained the role of Librium to her as well as the side effects.IL [employer]ER[employer] M[employer]ER query was done and she had received Librium 03/04/2018 for 10 days from her surgeon. Electrolyte imbalance 10 8738837 E87.8 Most likely due to GI loss from her recurrent vomiting Nausea and vomiting 1693 1999 R11.2 ETOH? Fibrocysti c disease of breast 93805896 N60.19 [id number] MD Silva Lee (Adult Med) [address] [place] [address] 94365-365 0 05/02/2018 11:13:35 05/05/2018 10:30:21 Chronic hypokalemia 04548153 E87.6 Hypomagnesemia 906399678 E83.42 Mg 1.2 04/29/2018 Continuous chronic alcoholism 668908756 F10.20 [id number] MD Silva Lee (Adult Med) [address] [place] [address] 26537-579 0 09/17/2018 12:08:08 09/17/2018 17:02:31 Chronic back pain 895787869 G89.29 Chronic cough 08306466 R 05 Her cough is chronic and her CXR was normal in November 2017.Asthm a?COPD? Medication monitoring 39 7017406 Z51.81 Disorder o f lipid metabolism 643231184 E78.9 [id number] MD Silva Lee (Adult Med) [address] [place] [address] 88424-522 0 11/07/2018 11:49:52 11/10/2018 09:06:12 Hypomagnesemia 106118977 E83.42 Mg 0.8 10/02/2018D iscussed with Ms Eddy. She is no longer on oral Mg replacemen t. Restart Mg, see eRx and orders.Lab s in a week Chronic cough 98079544 R 05 Her cough is chronic and her CXR was normal in November 2017.Asthm a?COPD?Imp rovement with Montelukas t and her PFTS are confusing, restrivtiv e disease or interstuil ial lung disease. Nicotine dependence 5629 4008 F17.200 Influenza vaccination declined 656968373 Z28.21 [id number] [facility] [address] [place] [address] [id number] 0 04/07/2019 11:08:56 04/08/2019 09:16:45 Episodic chronic alcoholism 345591970 F10.20 Pre-surger y evaluation 540478538 Z01.818 Moderate risk of complicati ons.NL CXR 04/02/2019T he EKG and lab results are pending. Hypomagnesemia 346761780 E83.42 Recheck Fibrocysti c disease of breast 80654396 N60.19 Spinal robbin nosis of lumbar region 16343651 M48.061 Degenerati on of lumbar intervertebral disc 07165382 M51.36 [id number] MD Silva Lee (Adult Med) [address] [place] [address] 95576-454 0 05/25/2019 09:25:28 05/26/2019 09:26:40 Continuous chronic alcoholism 063679765 F10.20 Liver enzy mes level above reference range 808007270 R74.8 Hypomagnesemia 003278120 E83.42 Mg 1.1 04/08/2019R estart MgRecheck 04/13/2019 Anemia 622463464 D64.9 History of lumbar laminectomy 1227016772 5841762 Z98.702 [id number] MD Silva Lee (Adult Med) [address] [place] [address] 72869-648 0 07/20/2019 09:06:47 07/21/2019 16:17:08 Liver enzymes level above reference range 774285043 R74.8 Possibly related to her alcohol useUSGI Continuous chronic alcoholism 247044597 F10.20 Hypomagnesemia 602370564 E83.42 Mg 1.4 07/14/2019C ontinue MgRecheck 04/13/2019 Anemia 946884395 D64.9 Fibrocysti c disease of breast 66131204 N60.19 She was referred to Dr Rod on 04/07/2019 [id number] Shwetha Medina MD [facility] (Adult Med) [address] [place] [address] [phone] 0 06/30/2020 09:35:17 07/04/2020 11:50:20 Immunization advised 646192530 Z71.9 Screening for malignant neoplasm of breast 064887619 Z12.39 Fibrocysti c disease of breast 57280258 N60.19 She was referred to Dr Rod on 04/07/2019 She has asked to be referred to Dr Govea as she is no longer able to see Dr Rollins . Screening for malignant neoplasm of colon 159722915 Z12.11 General ex amination of patient 623000215 Z00.01 Nicotine dependence 5629 4008 F17.200 Continuous chronic alcoholism 959376896 F10.20 [id number] LUCIA GARLAND [facility] [address] [place] [address] 11/14/2021 11:17:41 11/15/2021 14:27:40 Depression screening 897243751 Z13.31 PHQ 0 Tobacco de pendence syndrome 07379926 F17.200 since age 15smokes 3-4 cigarettes /day, can go up to 3 days w/o smokingres trictive ventilator y defect PFTs 2018, suggestive of interstiti al lung diseaseno inhalersdi scussed smoking cessation, pt is not amendable at this time Screening for malignant neoplasm of breast 280521769 Z12.39 due for mammowas following with britany [facility] breast surgery, had L biopsy and L cyst removal [phone] Continuous chronic alcoholism 903877643 F10.20 since age 15drinks rum and pepsi 1-4 drinks per day while relaxing and watching my shows stat es that # of drinks depends on her mooddoes not go out to bars or socially drink except when she goes to the [id number] labs shows elevated alk phos, GGT, ASTpt reports I know my labs will be bad and liver US in the past that was normalpt is not amendable to alcohol cessation or resources at this time Screening for malignant neoplasm of colon 893835730 Z12.11 due for colon cancer screen Adult heal th examination 946967874 Z00.00 routine labs [id number] LUCIA GARLAND [facility] [address] [place] [address] 12/15/2021 11:08:52 12/18/2021 10:34:47 Screening for malignant neoplasm of cervix 138257236 Z12.4 last pap >5 yrs agoPEx- nl, sample taken for papnu swab Gastroesop hageal reflux disease without esophagitis 199892071 K21.9 c/o burning in throat/aci d in mouthtakin g 's omeprazole with improvemen ttrial pantoprazo le Liver enzy mes level above reference range 076662759 R74.8 12/15/21:h as appt with Katelynn Kirkland PA-C GI at [facility] schedule liver US after complete additional imaging of breasts 03/2018: US liver showed hepatic steatosisl abs 2019: AST 101, GGT : alk phos 332, AST 90, GGT 790ordered US liverrefer to hepatology [id number] LUCIA GARLAND [facility] [address] [place] [address] 12/26/2021 13:31:01 12/27/2021 13:20:14 Screening for malignant neoplasm of cervix 520042951 Z12.4 11/8/22:pr evious pap unsatisfac tory for evalrepeat today 12/15/21:l ast pap >5 yrs agoPEx- nl, sample taken for papnu swab Elevated blood-pressure reading without diagnosis of hypertension 117221099 R03.0 BP 150/90pt states she is nervous and is having hot flashesord ered BP cuffadvise d to check BP at home, goal BP <130/80, f/u with BP log in 1 wk 12/15/21:1 44/86 [id number] LUCIA GARLAND [facility] [address] [place] [address] 05/30/2022 12:16:41 05/30/2022 12:54:11 Viral syndrome 366771853 B34.9 all tests negative Allergic rhinitis 095035 04 J30.9 trial zyrtec and cough suppressan t at bedtimewas on singulair in the past Liver enzy mes level above reference range 924118556 R74.8 05/30/22:di d not complete USre-sent 12/15/21:h as appt with Katelynn Kirkland PA-C GI at [facility] schedule liver US after complete additional imaging of breasts 03/2018: US liver showed hepatic steatosisl abs 2019: AST 101, GGT : alk phos 332, AST 90, GGT 790ordered US liverrefer to hepatology Essential hypertension 76903897 I10 BP at home 140s-150s/ 80-90smult iple previous OV with elevated BPBP in office 146/88, 116/78star t losartan 25advised to check BP at home, goal BP <130/80, f/u with BP log in 1 wk [id number] LUCIA GARLAND [facility] [address] [place] [address] 08/07/2022 11:53:08 08/07/2022 12:27:46 Mammography abnormal 639628532 R92.8 biopsy L breast 02/2022: biopsies to L breast normal, fibrocysti c breast tissue, negative for in situ or invasive carcinomap er patient: told her to have f/u for 6 mo USordered US L breast Essential hypertension 06553555 I10 08/07/22:BP today 128/80BP at home 110-120/70 sc/w losartan 25 05/30/22:BP at home 140s-150s/ 80-90smult iple previous OV with elevated BPBP in office 146/88, 116/78star t losartan 25advised to check BP at home, goal BP <130/80, f/u with BP log in 1 wk Depression screening 171 025273 Z13.31 PHQ 3 Liver enzy mes level above reference range 336658186 R74.8 08/07/22:US liver showed diffuse fatty liverpt did not go to GI apptdeclin es referral at this time 05/30/22:di d not complete USre-sent 12/15/21:h as appt with Katelynn Kirkland PA-C GI at [facility] schedule liver US after complete additional imaging of breasts 03/2018: US liver showed hepatic steatosisl abs 2019: AST 101, GGT : alk phos 332, AST 90, GGT 790ordered US liverrefer to hepatology [id number] LUCIA GARLAND [facility] [address] [place] [address] 10/24/2022 11:09:13 10/24/2022 11:57:05 Depression screening 831771593 Z13.31 PHQ 0 Pain of bi lateral hands 5871260330 7655976 M79.641 years tin gling and throbbing pain, worse in the morninguna ble to extend R index and R pinky fingerno injuryPEx- limited ROM R hand- unable to fully extend R index and R pinky fingerXR to r/o OArefer to hand surgery Overweight 144384583 E66 .3 discussed increasing exercise and healthier food options, high protein, low fat dietdue for routine labs Trigger fi nger of right hand 2411241687 0211637 M65.30 R pinky fingerrefe r to hand surgery Gastroesop hageal reflux disease without esophagitis 930771277 K21.9 10/24/22:rel ief with pantoprazo lewill refill 10/28/22:c /o burning in throat/aci d in mouthtakin g 's omeprazole with improvemen ttrial pantoprazo le Pain of ri ght knee joint 8117707631 70521 M25.561 x6 moacross middle of her kneeachy, occurs intermitte ntlyno injuryPEx- FROM R knee jointXR R kneerec'd tylenol PRN for pain Screening for malignant neoplasm of breast 578556646 Z12.39 due for mammopt had L breast biopsy and repeated US last year, benign findingsmo m had breast issues, at age 63 Smoker 67783474 F17.200 02/21 ppddecline s NRT at this timestart baby ASA [id number] LUCIA GARLAND [facility] [address] [place] [address] 11/12/2022 10:09:29 11/12/2022 10:33:35 Hyperlipidemia 23729548 E78.5 due to LDL 180 and smokerstar t ator 20, advised of ADR Spinal robbin nosis of lumbar region 34582261 M48.061 04/2019: lumbar laminectom y, L4-L5c/o worsening LBP x3 monthstigh tness in lower back that moves into buttocks and front of legsPEx- nlrequesti ng neuro referralne ed UTD imaging Liver enzy mes level above reference range 882967442 R74.8 11/12/22:re fused GI referralGG T 599, AST 107 08/07/22:US liver showed diffuse fatty liverpt did not go to GI apptdeclin es referral at this time 05/30/22:di d not complete USre-sent 12/15/21:h as appt with Katelynn Kirkland PA-C GI at [facility] schedule liver US after complete additional imaging of breasts 03/2018: US liver showed hepatic steatosisl abs 2019: AST 101, GGT : alk phos 332, AST 90, GGT 790ordered US liverrefer to hepatology Depression screening 171 [id number] Z13.31 PHQ 0 [id number] LUCIA GARLAND [facility] [address] [place] [address] 02/15/2023 12:39:24 02/20/2023 10:49:42 Fracture of multiple ribs [id number] S22.41XA fell at home and landed on L side 4 days agowent to ED, told she injured her ribsXR- possible Left 7th, 8th, and 9th lateral rib fractures s/p fallPEx- moderately TTP L ribs, mild edema and ecchymosis to L flankreque sting refill of pain meds, will send for 1 wktrial lidocaine patches Spinal robbin nosis of lumbar region [id number] M48.061 02/15/23:M RI lumbar spine 02/02/23- mild central canal stenosis compressio n L3-L4 with mild to moderate left neural foraminal narrowing at this level, posterior fusion L4-L5 EMG BLE scheduled with Dr. Maurer, neurosurge ry 11/23/22: XR showed lumbar fusion L4-L5 with bilateral rods and screws, moderate arthritis to facet joints L3-S1pt requesting referral to back surgeon 11/12/22:2019: lumbar laminectom y, L4-L5c/o worsening LBP x3 monthstigh tness in lower back that moves into buttocks and front of legsPEx- nlrequesti ng neuro referralne ed UTD imaging Dupuytren' s contracture of finger 341656363 M72.0 R pinkyhas surgery scheduled in 1 mo Depression screening 171 587618 Z13.31 PHQ 0 [id number] LUCIA GARLAND [facility] [address] [place] [address] 03/22/2023 11:41:29 03/22/2023 16:58:30 Fracture of multiple ribs 2330855 S22.41XA 03/22/23: pain has improved, no longer using walker, able to sleep laying flat in bed 02/15/23:f ell at home and landed on L side 4 days agowent to ED, told she injured her ribsXR- possible Left 7th, 8th, and 9th lateral rib fractures s/p fallPEx- moderately TTP L ribs, mild edema and ecchymosis to L flankreque sting refill of pain meds, will send for 1 wktrial lidocaine patches Spinal robbin nosis of lumbar region [id number] M48.061 03/22/23: sees neurosurge ry on 04/01/23com pleted EMG ordered by neuro, do not have results 02/15/23:M RI lumbar spine 02/02/23- mild central canal stenosis compressio n L3-L4 with mild to moderate left neural foraminal narrowing at this level, posterior fusion L4-L5 EMG BLE scheduled with Dr. Maurer, neurosurge ry 11/23/22: XR showed lumbar fusion L4-L5 with bilateral rods and screws, moderate arthritis to facet joints L3-S1pt requesting referral to back surgeon 11/12/22:2019: lumbar laminectom y, L4-L5c/o worsening LBP x3 monthstigh tness in lower back that moves into buttocks and front of legsPEx- nlrequesti ng neuro referralne ed UTD imaging Depression screening 171 713521 Z13.31 PHQ 0 Essential hypertension 87748051 I10 BP 145/81stat es that she is in pain today from back/ribs and anxious about knot in her breast Breast lump 25773954 N63 .0 concerned about lump to medial aspect of L breast that is new to her02/2022 biopsy L breast benign, tissue marker placed08/07 22 US L breast showing prominent ducts that were noted from prior, no concerning [id number] /2023 mammogram nlwill repeat US L breast [id number] LUCIA GARLAND [facility] [address] [place] [address] 11/01/2023 10:11:12 11/07/2023 13:00:22 Long-term drug therapy [id number] Z79.899 routine labsencour aged pt to take atorvastat in daily Tobacco de pendence syndrome 90405353 F17.200 11/01/23: unchanged 10/2021:sin ce age 15smokes 3-4 cigarettes /day, can go up to 3 days w/o smokingres trictive ventilator y defect PFTs 2018, suggestive of interstiti al lung diseaseno inhalersdi scussed smoking cessation, pt is not amendable at this time Continuous chronic alcoholism 522643041 F10.20 11/01/23: unchanged 10/2021: since age 15drinks rum and pepsi 1-4 drinks per day while relaxing and watching my shows stat es that # of drinks depends on her mooddoes not go out to bars or socially drink except when she goes to the [id number] labs shows elevated alk phos, GGT, ASTpt reports I know my labs will be bad and liver US in the past that was normalpt is not amendable to alcohol cessation or resources at this time Osteopenia [id number] M85 .80 found on DEXA t's attorney general office told her to mention that periodical ly off and on she has to use a walker due to paindoes not have DME, has walker at home, uses PRN 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 Boston OV 06/20/2023- left breast lesion excision done on May 22, 2023 that showed multifocal of atypical ductal hyperplasi a arising from fibrocysti c changes with focal florid usual ductal hyperplasi a. Risk of invasive breast cancer is about 35% and 30 years duration. recommend bilateral diagnostic mammogram every 6-month basis alternatin g with breast MRI every 6 months. ordered bone density test. Started tamoxifen 07/2023. Pt has F/u next month Depression screening 171 074092 Z13.31 PHQ 0 Essential hypertension 74833486 I10 BP 137/78c/w losartan 25 Overweight 996603502 E66 .3 discussed increasing exercise and healthier food options, high protein, low fat dietdue for routine labs [id number] Gina Mcdonald [facility] [address] [place] [address] 12/25/2023 11:24:34 12/25/2023 14:59:35 Long-term drug therapy 877019420 Z79.899 routine labsencour aged pt to take atorvastat in daily Health Concerns Section Related Observation LastModified by Organization Detai ls LastModified Time None Recorded Concern Status LastModified by Organization Details LastModified Time None Recorded Advance Directives Directive N: Payers Encounter Date Sequence Insurance Name Policy Number Policy Zuluaga Covered Member ID Zuluaga Member ID Guarantor Name 11/12/2022 1 [facility] - DOS ON OR AFTER 20 (MEDICAID REPLACEMENT - HMO) Tori Eddy [id number] Tori Eddy 02/15/2023 1 [facility] ON OR AFTER 08/18/20 (MEDICAID REPLACEMENT - HMO) Tori Eddy [id number] Tori Eddy 03/22/2023 1 [facility] ON OR AFTER 08/18/20 (MEDICAID REPLACEMENT - HMO) Tori Eddy [id number] Tori Eddy 11/01/2023 1 [facility] ON OR AFTER 08/18/20 (MEDICAID REPLACEMENT - HMO) Tori Eddy [id number] Tori Eddy 12/25/2023 1 [facility] ON OR AFTER 08/18/20 (MEDICAID REPLACEMENT - HMO) Tori Eddy [id number] Tori Eddy Notes Date Note Type Note Provider Name and Address Organization Details Recorded Time 11/12/2022 text/html Pt presents for neurosurgery referral due to back pain. H/o lumbar laminectomy in 2019. C/o worsening low back pain for the past 3 months. Describes as sharp, stabbing, aching. Starts as tightness in lower back, twisting sensation, moves into her buttocks and to the front of her legs. Worse with standing for long periods of time and physical activity. LUCIA GARLAND Attn: [address] [place], [address], [facility] 11/12/2022 12:07:57 02/15/2023 text/html Pt presents with L sided rib fracture. Reports that 5 days ago, she was using walker at home due to her back pain. She was reaching over her walker to grab her coat, walker did not have the brakes on, she fell, landed on her L side on top of laundry detergent container. Pt went to ED and was told that she injured her ribs. Pt is requesting refill of pain medication. LUCIA GARLAND Attn: [address] [place], [address], [facility] 02/19/2023 18:13:50 03/22/2023 text/html Pt presents for 1 mo f/u and med refills. Reports that her rib pain has improved, she is no longer using walker and able to sleep laying flat in her bed. LUCIA GARLAND Attn: [address] [facility], [place], [address], [facility] 03/22/2023 15:23:41 11/01/2023 text/html Pt presents for 6 mo f/u. Reports that she had R carpal tunnel surgery [address] Gomez. She is following with Oncology for abnormal cells in my left breast. Pt was started on tamoxifen 07/2023 and has breast MRI scheduled every 6 months. She reports that she had bone density scan that showed osteopenia. LUCIA GARLAND Attn: [address]ing[address] [facility], [place], [address], [facility] 11/05/2023 14:59:18 OBGyn Episode No OBEpisode recorded.
--- OUTSIDE RECORDS SUMMARY | 2024-03-12 06:27 | XMS_ITS | Clinical Summary ---
Author Organization [facility] Address [address] [place] [address] Phone Care Team Providers Care Public Administration Professor Name Role Phone TOM CONRAD, ARELI SANTOS MD, ARELI Stephenson Primary Care Provider [phone] Reason for Visit and Chief Complaint * PHONE CALL Problems Includes: Problems addressed during this encounter and other active Problems All Visits Onset Date Resolved Date Provider Condition S tatus Lumbar Spondylosis 12/08/2018 ZAYRA MEMBRENO Active Last Documented On 9 2:11PM ; [facility] Plan of Treatment No Plan of Treatment Recorded Assessments Includes: Assessments from this encounter No Assessments Recorded Medical Equipment - Implanted Devices Includes: Current Devices No Medical Equipment Recorded Medications Includes: Medications discussed during this encounter and other current Medications New / Renewed during this visit ZAYRA MEMBRENO on 02/12/2019 Xanax 0.5 MG Oral Tablet Provider: SILVIO MEMBRENO 1 day supply: 3 tablet, 0 refills Diagnosis: Anxiety disorder, unspecified as directed 1 po 1 hour prio r to procedure, 1 po 30 minutes prior to procedure and 1 immediately prior prn Pharmacy: [facility] [address], [address] - Last Documented On 0 10:04AM By ZAYRA MEMBRENO ; [facility] Current Medications (continue as prescribed) Aleve 220 MG Oral Tablet 02/18/2018 Provider: Diagnosis: prn Last Documented On 9 1:08PM By ZAYRA MEMBRENO ; [facility] Medications Administered Includes: Administered Medications from this encounter No Administered Medications Recorded Results Includes: Results discussed during this encounter No Results Recorded For Specified Dates History of Present Illness Includes: History of Present Illness from this encounter No History of Present Illness Recorded Social History Description Last Updated Smoking status : Current everyday smoker 01/26/2019 Last Documented On 9 4:00PM ; [facility] Alcohol 12/08/2018 Last Documented On 9 4:00PM ; [facility] Not using drugs 12/08/2018 Last Documented On 9 4:00PM ; [facility] Single 12/08/2018 Last Documented On 9 4:00PM ; [facility] Tobacco use 12/08/2018 Last Documented On 9 4:00PM ; [facility] Medical History Includes: Medical History addressed during [...] deja Last Documented On 0 9:34AM ; [facility] Encounters Encounter Provider Location Date Check-In Time Check-Out Time Diagnosis * PHONE CALL ZAYRA CISNEROS-HARRY 02/12/2019 4:00PM 11:59PM Insurance Includes: Active Insurance Policies Plan Name Member ID Group # Subscriber Relationship Effect deja Dates - [facility] [id number] LETICIA PHIPPS Self Clinical Notes Includes: Clinical Notes from this encounter No Clinical Notes Recorded
--- OUTSIDE RECORDS SUMMARY | 2024-03-12 06:27 | XMS_ITS ---
Care Plan - [facility] Created on: March 12, 2024 LETICIA PHIPPS : [id number] Sex: Female Author Organization [facility] Address [address] [place] [address] Phone Care Team Providers Care Hygiene Assistant Name Role Phone TOM CONRAD, ARELI SANTOS MD, ARELI Stephenson Primary Care Provider [phone]
--- OUTSIDE RECORDS SUMMARY | 2024-03-12 06:27 | XMS_ITS | Clinical Summary ---
Author Organization [facility] Address [address] [place] [address] Phone Care Team Providers Care Flight Inspector Name Role Phone Shwetha Medina MD Primary Care Provider Allergies Active Allergy Reactions Criticality Noted Date Comments Clindamycin Hives 03/21/2018 Medications Naproxen Sodium (ALEVE PO) Take by mouth as needed. Active Active Problems Problem Noted Date Diagnosed Date Fibrocystic disease of breas t, proliferative type with atypia, left 03/21/2018 Tobacco abuse 03/21/2018 Alcohol abuse 03/21/2018 Family History Medical History Relation Name Comments Cancer Father Chronic Obstructive Pulmonary Disease Father Diabetes Father Cancer Mother Hypertension Mother Stroke Mother Relation Name Status Comments Father Mother Social History Tobacco Use Types Packs/Day Years Used Date Smoking Tobacco: Every Day Cigarettes 0.5 36.1 Started: 1988 Smokeless Tobacco: Never Alcohol Use Standard Drinks/Week Comments Yes 0 (1 standard drink = 0.6 oz pur e alcohol) daily Comments Unknown Sex and Gender Information Value Date Recorded Sex Assigned at Not on file Legal Sex Female 11:21 AM GEOPHYSICAL COMPUTER Gender Identity Not on file Sexual Orientation Not on file Last Filed Vital Signs Vital Sign Reading Time Taken Comments Blood Pressure 136/90 03/21/2018 2:10 PM GEOPHYSICAL COMPUTER Pulse 106 03/21/2018 2:10 PM GEOPHYSICAL COMPUTER Temperature 37.2 ??C (99 ??F) 03/21/2018 2:10 PM GEOPHYSICAL COMPUTER Respiratory Rate 18 03/21/2018 2:10 PM GEOPHYSICAL COMPUTER Oxygen Saturation 98% 03/21/2018 2:10 PM GEOPHYSICAL COMPUTER Inhaled Oxygen Concentration - - Weight 69.5 kg (153 lb 4.8 oz) 03/21/2018 2:10 P M GEOPHYSICAL COMPUTER Height 158.8 cm (5' 2.5 ) 03/21/2018 2:10 PM GEOPHYSICAL COMPUTER Body Mass Index 27.59 03/21/2018 2:10 PM GEOPHYSICAL COMPUTER Plan of Treatment Health Maintenance Due Date Last Done Comments Hepatitis C Virus (HCV) Screening 1970 TdaP Immunization 1970 Pneumococcal Immunization Co mbined (1 of 2 - PCV) 1976 Hepatitis B Immunization (1 of 3 - 19+ 3-dose series) 1989 Pneumococcal Immunization (5 0+ years) (1 of 2 - PCV) 1989 Pap Smear 09/05/1991 Cervical Cancer Screening (CCS) 2000 HPV/Cotest 2000 Colonoscopy 09/05/2015 Colorectal Cancer Screening 09/05/2015 Cologuard 2020 Immunochemical Fecal Occult Blood 2020 Mammogram 2020 12/25/2017 Zoster Immunization (1 of 2) 2020 Influenza Immunization (#1) 2023 SARS-COV-2 Immunization ( - 2023- season) 2023 Respiratory Syncytial Virus (RSV) Immunization (Adult) (1 - 1-dose 75+ series) 2045 Meningococcal Immunization (ACWY) Aged Out No longer eligible based on patient's age to complete this topic Rotavirus Immunization Aged Out No lo nger eligible based on patient's age to complete this topic Insurance MEDICAID [employer] Care Teams Flight Inspector Relationship Specialty Start Date End Date Shwetha Medina MD [address] [place] [address] PCP - General Internal Medicine 03/21/18
--- OUTSIDE RECORDS SUMMARY | 2024-03-12 06:27 | XMS_ITS | Referral Summary ---
Author Organization [facility] Address [address] [place] [address] Care Team Providers Care Telephone Interceptor Operator Name Role Phone Radha Griffiths PA-C Primary Care Provider [phone] Source Comments [facility],non-owned Affiliates and Associated Physician Practices is amultiple site organization consisting of ambulatory clinics and hospital sitesin [place], [place], [place] and [place]. This disclosure is being madepursuant to the Care Everywhere program and may not contain all information available regarding this patient. Last updated 17.[facility] [employer] Allergies Active Allergy Reactions Criticality Noted Date Comments Clindamycin Other High 01/01/2018 Medications * Be aware that medications may not be up to date on this document. Alwaysverify current medications with the patient. Medication Sig Dispensed Refills Start Date End Date Status EQ Aspirin Adult Low Dose 81 MG tablet Take 1 (one) tablet by mouth every morning 12/24/2022 Active atorvastatin (Lipitor) 20 MG tablet Take 1 (one) tablet by mouth at bedtime 11/12/2022 Active cetirizine (ZyrTEC) 10 MG tablet TAKE 1 TABLET BY MOUTH ONCE DAILY IN THE MORNING FOR 30 DAYS 12/20/2022 Active losartan (Cozaar) 25 MG tablet TAKE 1 TABLET BY MOUTH ONCE DAILY IN THE MORNING FOR 30 DAYS 12/20/2022 Active famotidine (Pepcid) 20 MG tablet 03/31/2023 Active Social History Tobacco Use Types Packs/Day Years Used Date Smoking Tobacco: Every Day Cigarettes Smokeless Tobacco: Never Tobacco Cessation:Ready to Q uit: Not Asked; Counseling Given: Not Answered Alcohol Use Standard Drinks/Week Comments Yes 1 (1 standard drink = 0.6 oz pur e alcohol) daily Sex and Gender Information Value Date Recorded Sex Assigned at Not on file Gender Identity Not on file Sexual Orientation Not on file Last Filed Vital Signs Vital Sign Reading Time Taken Comments Blood Pressure 161/93 04/01/2023 8:24 AM MAIL HANDLER Pulse 91 04/01/2023 8:24 AM MAIL HANDLER Temperature 36.9 ??C (98.4 ??F) 01/07/2023 8:33 AM CS T Respiratory Rate 18 01/07/2023 8:33 AM MAIL HANDLER Oxygen Saturation 96% 04/01/2023 8:24 AM MAIL HANDLER Inhaled Oxygen Concentration - - Weight 72.6 kg (160 lb) 04/01/2023 8:24 AM MAIL HANDLER Height 160 cm (5' 3 ) 04/01/2023 8:24 AM MAIL HANDLER Body Mass Index 28.34 04/01/2023 8:24 AM MAIL HANDLER Plan of Treatment Not on file Care Teams Telephone Interceptor Operator Relationship Specialty Start Date End Date Radha Griffiths PA-C [address] [place] [address] [facility] - General 03/28/22
--- OUTSIDE RECORDS SUMMARY | 2024-03-12 06:27 | XMS_ITS | Clinical Summary ---
Author Organization [facility] Address [address] [place] [address] Care Team Providers Care Volunteer Services Coordinator Name Role Phone Radha Griffiths PA-C Primary Care Provider [phone] Source Comments [facility],non-owned Affiliates and Associated Physician Practices is amultiple site organization consisting of ambulatory clinics and hospital sitesin [place], [place], [place] and [place]. This disclosure is being madepursuant to the Care Everywhere program and may not contain all information available regarding this patient. Last updated 17.[facility] Allergies Active Allergy Reactions Criticality Noted Date [...] Comments Blood Pressure 161/93 04/01/2023 8:24 AM ALMOND ROASTER Pulse 91 04/01/2023 8:24 AM ALMOND ROASTER Temperature 36.9 ??C (98.4 ??F) 01/07/2023 8:33 AM CS T Respiratory Rate 18 01/07/2023 8:33 AM ALMOND ROASTER Oxygen Saturation 96% 04/01/2023 8:24 AM ALMOND ROASTER Inhaled Oxygen Concentration - - Weight 72.6 kg (160 lb) 04/01/2023 8:24 AM ALMOND ROASTER Height 160 cm (5' 3 ) 04/01/2023 8:24 AM ALMOND ROASTER Body Mass Index 28.34 04/01/2023 8:24 AM ALMOND ROASTER Plan of Treatment Health Maintenance Due Date Last Done Comments COLOGUARD (AGES 45-75) - COL ON CA SCREENING 1970 COLON MONITORING 1970 COLONOSCOPY - COLON CA SCREENING 1970 CT COLONOGRAPHY - COLON CA SCREENING 1970 Colorectal Cancer Screening 1970 FIT - COLON CA SCREENING 1970 FLEX SIG - COLON CA SCREENING 1970 PAP SMEAR 1970 HIV SCREENING 1985 HEPATITIS C SCREENING 08/30/1988 DTAP/TDAP/TD VACCINES (1 - Tdap) 1989 HEPATITIS B VACCINE (1 of 3 - 19+ 3-dose series) 1989 PNEUMOCOCCAL VACCINE 50+ (1 of 2 - PCV) 1989 PNEUMOCOCCAL VACCINE (1 of 2 - PCV) 1989 ZOSTER VACCINE (1 of 2) 2020 MAMMOGRAM 03/27/2021 03/27/2019, 12/25/2017 SCREENING FOR DIABETES 01/07/2023 COVID-19 VACCINE (1 - 2023-2 5 season) 2023 INFLUENZA VACCINE (#1) 2023 DEPRESSION SCREENING 02/19/2024 HIB VACCINE Aged Out No longer eligi ble based on patient's age to complete this topic HPV VACCINE Aged Out No longer eligi ble based on patient's age to complete this topic MENINGOCOCCAL (Group B) VACCINE Aged Out No longer eligible b ased on patient's age to complete this topic MENINGOCOCCAL VACCINE Aged Out No mandeep barak eligible based on patient's age to complete this topic Care Teams Volunteer Services Coordinator Relationship Specialty Start Date End Date Radha Griffiths PA-C [address] [place] [id number] PCP - General 03/28/22
--- OUTSIDE RECORDS SUMMARY | 2024-03-12 06:27 | XMS_ITS | Patient Health Summary ---
Author Organization [facility] Address [address] [place] [address] Care Team Providers Care Shredded Filler Cutter Operator Name Role Phone Radha Griffiths PA-C Primary Care Provider [phone] Note from [facility],non-owned Affiliates and Associated Physician Practices is amultiple site organization consisting of ambulatory clinics and hospital sitesin [place], [place], [place] and [place]. This disclosure is being madepursuant to the Care Everywhere program and may not contain all information available regarding this patient. Last updated 17.[facility] Allergies * Clindamycin(Other) -High Criticality Medications * Be aware that medications may not be up to date on this document. Alwaysverify current medications with the patient. * EQ Aspirin Adult Low Dose 81 MG tablet(Started 12/24/2022) Take 1 (one) tablet by mouth every morning * atorvastatin (Lipitor) 20 MG tablet(Started 11/12/2022) Take 1 (one) tablet by mouth at bedtime * cetirizine (ZyrTEC) 10 MG tablet(Started 12/20/2022) TAKE 1 TABLET BY MOUTH ONCE DAILY IN THE MORNING FOR 30 DAYS * losartan (Cozaar) 25 MG tablet(Started 12/20/2022) TAKE 1 TABLET BY MOUTH ONCE DAILY IN THE MORNING FOR 30 DAYS * famotidine (Pepcid) 20 MG tablet(Started 03/31/2023) Social History Tobacco Use Types Packs/Day Years [...] Comments Blood Pressure 161/93 04/01/2023 8:24 AM DIE CASTING MACHINE SETTER Pulse 91 04/01/2023 8:24 AM DIE CASTING MACHINE SETTER Temperature 36.9 ??C (98.4 ??F) 01/07/2023 8:33 AM CS T Respiratory Rate 18 01/07/2023 8:33 AM DIE CASTING MACHINE SETTER Oxygen Saturation 96% 04/01/2023 8:24 AM DIE CASTING MACHINE SETTER Inhaled Oxygen Concentration - - Weight 72.6 kg (160 lb) 04/01/2023 8:24 AM DIE CASTING MACHINE SETTER Height 160 cm (5' 3 ) 04/01/2023 8:24 AM DIE CASTING MACHINE SETTER Body Mass Index 28.34 04/01/2023 8:24 AM DIE CASTING MACHINE SETTER Procedures * IMAGING/RADIOLOGY/XRAY RESULTS ORDER(Performed 02/02/2023) * IMAGING/RADIOLOGY/XRAY RESULTS ORDER(Performed 01/25/2023) * IMAGING/RADIOLOGY/XRAY RESULTS ORDER(Performed 01/25/2023) * MRI BREAST BILAT WWO CONTRAST(Performed 02/06/2018) Performed for Atypical hyperplasia of breast * CREATININE BLOOD - POCT (IP) [facility](Performed 02/06/2018) Performed for Atypical hyperplasia of breast Results * IMAGING RADIOLOGY XRAY RESULTS ORDER (02/02/2023) Only the most recent of3 resultswithin the time period is included. Anatomical Region Laterality Modality Other 02/02/2023 Narrative 02/02/2023 Ordered by an unspecified provider. Scanned Document IMAGING * MRI BREAST BILAT WWO CONTRAST (02/06/2018 1:02 PM DIE CASTING MACHINE SETTER) Anatomical Region Laterality Modality Breast Bilateral Magnetic Resonan ce 02/06/2018 1:37 PM DIE CASTING MACHINE SETTER Impressions 02/06/2018 3:06 PM DIE CASTING MACHINE SETTER IMPRESSION: 1.No MR evidence of malignancy in either breast. 2.No MR suspicious abnormality at site of known focal atypia in lower outer quadrant or left breast, or associated with adjacent calcifications. ASSESSMENT: BI-RADS Category 2: Benign finding(s). RECOMMENDATION: Patient is under the care of Dr. Rollins. Site of known atypia in left breast is amenable for mammogram-guided localization. I, Dr. DEANNE ZAMBRANO M.D. have personally reviewed and interpreted this examination/study. This report was electronically signed by DEANNE ZAMBRANO M.D. ??on 02/06/2018 3:06 PM . Narrative 02/06/2018 3:06 PM DIE CASTING MACHINE SETTER BILATERAL BREAST MRI HISTORY: ??47-year-old female with reported history of focal atypia from stereotactic biopsy of left breast calcifications, initially identified on outside hospital screening mammogram. The calcifications span approximately 5 cm. COMPARISON: Comparison was made to previous screening mammogram on 12/13/2017, diagnostic left breast mammogram on 12/25/2017, and stereotactic left breast biopsy and post biopsy mammogram on 01/15/2018, all performed at [facility]. TECHNIQUE: Multiplanar multisequence MR imaging of both breasts before and following the administration of 7 cc of Gadavist. Dynamic phase imaging was performed in the axial plane. Exam was processed by and interpreted on a Play[employer] gravity meter observer including 3-D volume rendering, subtraction image processing and contrast kinetic analysis. FINDINGS: Background tissue pattern: Extreme fibroglandular tissue. Degree of background parenchymal enhancement: Marked, symmetric. There is no suspicious mass or area of abnormal enhancement in either breast. Biopsy clip with associated postbiopsy changes seen in the lower outer quadrant of the left breast, at site of recent stereotactic biopsy. No abnormal enhancement is seen in the region of mammographically visible calcifications. Incidental note is made of bilateral ductal ectasia with proteinaceous debris. Numerous breast cysts are also seen bilaterally. There is no axillary or internal mammary adenopathy. Postbiopsy changes of the biopsy-proven outer lower left breast atypical hyperplasia are identified (series 4, image 25). Sharmaine Rollins DO MR ORDERABLES * CREATININE BLOOD - POCT () [facility] (02/06/2018 12:30 PM DIE CASTING MACHINE SETTER) Creatinine POCT 0.94 0.3 - 1.3 mg/dL [facility] POCT TESTING eGFR POCT 60 60 ml/min [facility] POCT TEST[facility] Blood BLOOD SPECIMEN / Unknown 02/06/2018 12:30 PM DIE CASTING MACHINE SETTER Sharmaine Rollins DO LAB - POINT OF CARE ORDERABLES [facility] POCT TESTING [address] [phone] Care Teams Shredded Filler Cutter Operator Relationship Specialty Start Date End Date Radha Griffiths PA-C [address] [place] [address] PCP - General 03/28/22
--- OUTSIDE RECORDS SUMMARY | 2024-03-12 06:28 | XMS_ITS | Clinical Summary ---
Author Organization [facility] Address [address] [place] [address] Care Team Providers Care Regulatory Affairs Associate Name Role Phone Shwetha Medina MD Primary Care Provider Allergies Active Allergy Reactions Criticality Noted Date Comments Clindamycin Hives High 01/01/2018 Medications cetirizine (ZyrTEC) 10 mg tablet Take 10 mg by mouth daily in the morning. Active famotidine (PEPCID) 20 mg tablet 4 Active aspirin (ECOTRIN EC) 81 mg Tablet, Delayed Release (E.C.) Take 81 mg by mouth daily in the morning. Active atorvastatin (LIPITOR) 20 mg tablet Take 20 mg by mouth daily at bedtime. Active losartan (COZAAR) 25 mg tablet Take 25 mg by mouth daily in the morning. Active ferrous sulfate (SLOW RELEASE IRON) 140 mg (45 mg iron) Tablet Sustained Release Take 140 mg by mouth daily with breakfast. Active cyanocobalamin (VITAMIN B-12) 500 mcg tablet Take 500 mcg by mouth daily. Active potassium chloride (KLOR-CON M20) 20 mEq Extended Release tablet Take 20 mEq by mouth daily. Active tamoxifen (NOLVADEX) 20 mg tablet Take 1 Tablet (20 mg) by mouth daily. 90 Tablet 2 5 Active tamoxifen (NOLVADEX) 20 mg tablet Take 1 Tablet (20 mg) by mouth daily. 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 Resolved Problems Problem Noted Date Diagnosed Date Resolved Date Microcalcification of left b reast on mammogram 01/01/2018 04/08/2018 Encounters Date Type Department Care Team Description 03/10/2024 External Device Data [facility] ABSTRACTION Provider, Abstract 03/06/2024 Orders Only [facility] [place] [address] [place] [phone] Brian Boston MD 03/05/2024 Refill [facility] [place] [address] [place] [phone] Brian Boston MD 01/10/2024 Orders Only [facility] [place] [address] Brian Boston MD 01/07/2024 Orders Only [facility] [place] [address] [place] [address] Brian Boston MD 01/06/2024 Orders Only [facility] [place] [address] [place] [phone] Brian Boston MD from Last 3 Months Family History Medical History Relation Name Comments Cancer Father prostate, 71 Cancer Mother mets Relation Name Status Comments Brother Alive Daughter 1 Alive Daughter 2 Alive Father Mother Sister Alive Son Alive Social History Tobacco Use Types Packs/Day Years Used Date Smoking Tobacco: Every Day Cigarettes 0.5 30 Smokeless Tobacco: Never Tobacco Cessation:Ready to Q uit: Not Asked; Counseling Given: Not Answered Alcohol Use Standard Drinks/Week Comments Yes 0 (1 standard drink = 0.6 oz pur e alcohol) occasional Comments No Sex and Gender Information Value Date Recorded Sex Assigned at Not on file Legal Sex Female 5:26 PM SILVERING APPLICATOR Gender Identity Not on file Sexual Orientation Not on file Last Filed Vital Signs Vital Sign Reading Time Taken Comments Blood Pressure 130/89 11/12/2023 10:54 AM CDT Pulse 88 11/12/2023 10:54 AM CDT Temperature 36.7 ??C (98 ??F) 11/12/2023 10:54 AM CDT Respiratory Rate 16 11/12/2023 10:54 AM CDT Oxygen Saturation 97% 11/12/2023 10:54 AM CDT Inhaled Oxygen Concentration - - Weight 73 kg (161 lb) 11/12/2023 10:54 AM CDT Height 160 cm (5' 3 ) 06/20/2023 8:55 AM CDT Body Mass Index 28.52 06/20/2023 8:55 AM CDT Plan of Treatment Upcoming Encounters Date Type Department Care Team (Late st Contact Info) Description 03/13/2024 11:00 AM SILVERING APPLICATOR Office Visit [facility] [address] [facility] [address] [place] [address] Brian Boston MD [address] [facility] [address] [place] [address] Health Maintenance Due Date Last Done Comments Pre-Diabetes and Diabetes Screening 1970 HEPATITIS B VACCINES (1 of 3 - 19+ 3-dose series) 1989 CERVICAL CANCER SCREENING 2000 COLORECTAL SCREENING 09/05/2015 Colorectal Cancer Screening 09/05/2015 FIT-DNA Q 3 years 09/05/2015 FIT/FOBT Q 1 year 09/05/2015 Flex Sig/CT Colonography Q 5 years 09/05/2015 ZOSTER VACCINE (1 of 2) 2020 Preventative Visit-Managed Medicaid 12/16/2022 12/15/2021, 12/06/2017 INFLUENZA VACCINE (#1) 2023 BREAST CANCER SCREENING 12/03/2024 12/04/19 24, 03/27/2019, 2018, Additional history exists DTAP/TDAP/TD VACCINES (2 - T d or Tdap) 02/18/2025 02/18/2015 Procedures Procedure Name Priority Date/Time Associated Diagnosis Comments COMPREHENSIVE METABOLIC PANEL Routine 03/06/2024 3:25 PM SILVERING APPLICATOR CBC WITH DIFFERENTIAL Routine 03/06/2024 12:55 PM SILVERING APPLICATOR METHYLMALONIC ACID Routine 01/08/2024 1: 31 PM SILVERING APPLICATOR IRON LEVEL Routine 01/03/2024 11:26 AM SILVERING APPLICATOR COMPREHENSIVE METABOLIC PANEL Routine 01/03/2024 10:50 AM SILVERING APPLICATOR MAMMO BILAT DIAGNOSTIC Routine 1:51 PM CDT from Last 3 Months or Most Recently Relevant to Health Maintenance Results * COMPREHENSIVE METABOLIC PANEL (03/06/2024 3:25 PM SILVERING APPLICATOR) Only the most recent of2 resultswithin the time period is included. Blood us Brian Boston MD CHEMISTRY ORDERABLES Final Resu lt * CBC WITH DIFFERENTIAL (03/06/2024 12:55 PM SILVERING APPLICATOR) Blood us Brian Boston MD HEMATOLOGY ORDERABLES Final Res ult * METHYLMALONIC ACID (01/08/2024 1:31 PM SILVERING APPLICATOR) Blood us Brian Boston MD CHEMISTRY ORDERABLES Final Resu lt * IRON LEVEL (01/03/2024 11:26 AM SILVERING APPLICATOR) Blood us Brian Boston MD CHEMISTRY ORDERABLES Final Resu lt * MAMMO BILAT DIAGNOSTIC (12/04/2023 1:51 PM CDT) Anatomical Region Laterality Modality Breast Bilateral Other us Brian Boston MD MAMMO ORDERABLES Final Result from Last 3 Months or Most Recently Relevant to Health Maintenance Insurance [facility] [place] [id number] [facility] Care Teams Regulatory Affairs Associate Relationship Specialty Start Date End Date Shwetha Medina MD [address] [place] [address] PCP - General Internal Medicine 01/01/18
--- OUTSIDE RECORDS SUMMARY | 2024-03-12 06:28 | XMS_ITS | Clinical Summary ---
Author Organization [facility] Address [facility] [place] [address] Care Team Providers Care Subcontract Manager Name Role Phone Radha Griffiths Primary Care Provider [phone] Allergies Active Allergy Reactions Criticality Noted Date Comments Clindamycin Hives High 01/01/2018 Medications aspirin 81 mg enteric coated tablet Take 1 tablet (81 mg total) by mouth daily Hold 3 days prior to surgery per TLB 3 Active atorvastatin (LIPITOR) 20 mg tablet Take 1 tablet (20 mg total) by mouth nightly 3 Active cetirizine (ZyrTEC) 10 mg tablet Take 1 tablet (10 mg total) by mouth daily 3 Active losartan (COZAAR) 25 mg tablet TAKE 1 TABLET BY MOUTH ONCE DAILY IN THE MORNING FOR 30 DAYS [address] (PROTONIX) 20 mg EC tablet Take 1 tablet (20 mg total) by mouth daily 3 Active albuterol HFA (PROVENTIL HFA,VENTOLIN HFA,PROAIR HFA) 90 mcg/actuation inhaler INHALE 2 PUFFS BY MOUTH EVERY 4 HOURS NEEDED FOR 30 DAYS Active magnesium oxide (MAG-OX) 400 mg (241.3 mg elemental magnesium) tablet 9 Active potassium chloride ER 20 mEq CR tablet 9 Active tamoxifen (NOLVADEX) 20 mg tablet Take 1 tablet (20 mg total) by mouth daily Active ferrous sulfate ER (SLOW IRON) 140 mg (45 mg of elemental iron) tabletIndicatio ns:Iron Deficiency Anemia Take 1 tablet (140 mg total) by mouth daily with breakfast Active cyanocobalamin (Vitamin B-12) 500 mcg tabletIndicatio ns:Prevention of Vitamin B12 Deficiency Take 1 tablet (500 mcg total) by mouth daily Active traMADoL (ULTRAM) 50 mg tablet Take 1 tablet (50 mg total) by mouth every 6 (six) hours as needed for pain 15 tablet 4 Active Active Problems Problem Noted Date Diagnosed Date Right carpal tunnel syndrome 10/07/2023 Carpal tunnel syndrome on right 10/07/2023 Gastroesophageal reflux disease without esophagi tis 02/28/2023 Dupuytren's contracture 02/06/2023 Trigger finger of right hand 11/26/2022 Right hand pain 11/26/2022 Hyperlipidemia 11/12/2022 Essential hypertension 08/07/2022 Elevated liver enzymes 07/20/2019 Degeneration of lumbar intervertebral disc 04/06 Alcohol abuse 03/21/2018 Fibrocystic disease of breas t, proliferative type with atypia, left 01/21/2018 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 Surgical History Surgery Date Site/Laterality Comments KNEE ARTHROSCOPY Left patellar fracture THROAT SURGERY abscess BREAST SURGERY 02/18/2023 - 02/18/2024 biopsy x2--benign POSTERIOR FUSION LUMBAR SPINE 02/18/2019 - 02/18/2020 L4-5 Medical History Medical History Date Comments Hypercholesteremia Hypertension Allergic rhinitis GERD (gastroesophageal reflux disease) Alcohol abuse 03/21/2018 Social History Tobacco Use Types Packs/Day Years Used Date Smoking Tobacco: Every Day Cigarettes 0.3 35 Smokeless Tobacco: Never Tobacco Cessation:Ready to Q uit: Not Asked; Counseling Given: Not Answered AUDIT-C Answer Date Recorded Q1: How often do you have a drink containing alcohol? 4 or more times a week 10/29/2023 Q2: How many drinks containi ng alcohol do you have on a typical day when you are drinking? 3 or 4 4 Q3: How often do you have si x or more drinks on one occasion? Weekly 10/29/2023 Personal Safety Answer Date Recorded Have you ever been in or are you currently in a harmful physical or emotional relationship or is someone making you feel afraid or unsafe? Denies 10/29/2023 Comments No Sex and Gender Information Value Date Recorded Sex Assigned at Not on file Legal Sex Female 11:53 AM CDT Gender Identity Not on file Sexual Orientation Not on file Obstetrics History Last Filed Vital Signs Vital Sign Reading Time Taken Comments Blood Pressure 119/67 10/29/2023 8:50 AM CDT Pulse 81 10/29/2023 8:50 AM CDT Temperature 36.6 ??C (97.9 ??F) 10/29/2023 8:20 AM CD T Respiratory Rate 16 10/29/2023 8:50 AM CDT Oxygen Saturation 95% 10/29/2023 8:50 AM CDT Inhaled Oxygen Concentration - - Weight 73.4 kg (161 lb 12.8 oz) 10/29/2023 6:02 AM CDT Height 160 cm (5' 3 ) 10/29/2023 6:02 AM CDT Body Mass Index 28.66 10/29/2023 6:02 AM CDT Plan of Treatment Health Maintenance Due Date Last Done Comments Cervical Cancer Screening 1970 Colon Cancer Screening-Colonoscopy 1970 Depression Screening 1970 Hepatitis C Screening 1970 Pneumococcal vaccine <65 (1 of 2 - PCV) 1976 Hepatitis B Screening 1988 Regular Well Visit/Exam 18-64 1988 Zoster Vaccine (1 of 2) 1989 Influenza Vaccine (#1) 2023 Breast Cancer Screening-Mammogram 11/23/2023 023 DTaP/Tdap/Td Vaccine (2 - Td or Tdap) 02/18/202502/2015 Medical Devices Implanted Type Area Puppy Sitter Device Identifier Shelf Expiration Date Model / Serial / Lot Cage-Lumbar Spine Cage Back Marker 2 Or 3 Left: Breast [facility] Care Teams Subcontract Manager Relationship Specialty Start Date End Date Radha Griffiths PA [address] [place] [id number] PCP - General Physician Bias Cutter 10/24/22
--- OUTSIDE RECORDS SUMMARY | 2024-03-12 06:28 | XMS_ITS | Encounter Summary ---
Author Organization [facility] Address [address] [place] [address] Care Team Providers Care Insurance Sales Producer Name Role Phone Shwetha Medina MD Primary Care Provider [phone] Reason for Visit * Reason Onset Date Comments Medication Refill 03/05/2024 Encounter Details Date Type Department Care Team ([facility] Contact Info) Description 03/05/2024 Refill [facility] - [place] [address] [place] [address] Brian Boston MD [address] [place], [place] [address] [address] [place] [address] Social History Tobacco Use Types Packs/Day Years Used Date Smoking Tobacco: Every Day Cigarettes 0.5 30 Smokeless Tobacco: Never Alcohol Use Standard Drinks/Week Comments Yes 0 (1 standard drink = 0.6 oz pur e alcohol) occasional Comments No Sex and Gender Information Value Date Recorded Sex Assigned at Not on file Legal Sex Female 5:26 PM MILLER ROD MILL Gender Identity Not on file Sexual Orientation Not on file documented as of this encounter Plan of Treatment Upcoming Encounters Date Type Department Care Team ([facility] Contact Info) Description 03/13/2024 11:00 AM MILLER ROD MILL Office Visit [facility] - [place] [address] [place] [address] Brian Boston MD [facility] [address] [place] [address] documented as of this encounter Visit Diagnoses Not on filedocumented in this encounter Care Teams Insurance Sales Producer Relationship Specialty Start Date End Date Shwetha Medina MD [address] [place] [address] PCP - General Internal Medicine 01/01/18 documented as of this encounter
--- OUTSIDE RECORDS SUMMARY | 2024-03-12 06:28 | XMS_ITS | Referral Summary ---
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 3 or 4 Q3: How often do you have [...] 10/29/2023 6:02 AM CDT Plan of Treatment Not on file Medical Devices Implanted Type Area Commercial Helicopter Pilot Device Identifier Shelf Expiration Date Model / Serial / Lot Cage-Lumbar Spine Cage Back Marker 2 Or 3 Left: Breast Insurance Care Teams Crap Shooter Relationship Specialty Start Date End Date Radha Griffiths PA [address] [place] [id number] PCP - General Physician Oil And Gas Superintendent 10/24/22
== END 2024-03-06 10:38 | disposition home or self-care (01) ==
LOC: ANHLAB 10:39
PROVIDERS: PCP Physician Assistant; Visit Provider Internal Medicine Hematology & Oncology
DX: D64.9 Anemia, unspecified (principal)
CPT/HCPCS: 36415; 80053; 82607; 82728; 82746; 83540; 83550; 85025

== ENCOUNTER 2024-06-11 09:43 | Outpatient (CLI) | payer MEDICARE, MEDICAID, SELFPAY ==
--- NOTE | ~2024-06-11 | MR_ITS ---
MR breast BI wo/w con 06/11/2024 11:57 CDT INDICATION: Left breast lump. TECHNIQUE: MRI of the breasts perform using standard protocol pre-and post IV contrast with the follo wing sequences: Axial T2 STIR, axial T1, axial vibrant T1 with fat suppression precontrast and multip hasic postcontrast. 14 cc ProHance administered intravenously. COMPARISON: Comparison to multiple prior studies sequentially, with oldest reviewed study dated 08/2019. FINDINGS: The breast are composed of extremely dense fibroglandular content. Right breast: There are no abnormalities on the precontrast sequences. There is marked background par enchymal enhancement. At approximately 3:00, middle third of the right breast there is a circumscribe d oval 5 mm mass which is hyperintense on T1 and hypointense on T2 without enhancement, likely benign . This corresponds to the area of mass seen on recent ultrasound dated 12/04/2023. No enhancing lesio ns following contrast administration. No areas of enhancement meeting threshold criteria on CAD anal ysis. No evidence of signal abnormalities in the axillary or internal mammary node distributions. LEFT BREAST: No signal abnormalities on precontrast sequences. There is marked background parenchyma l enhancement. No enhancing lesions following contrast administration. No areas of enhancement crystal ting threshold criteria on CAD analysis. There is moderate relatively symmetric nonmass-like enhancem ent bilaterally, consistent with background. No evidence of signal abnormalities in the axillary or i nternal mammary node distributions. IMPRESSION: 1: Right breast: Probable benign left breast mass at approximately 3:00, middle third which correspo nds the region abnormality seen on recent ultrasound. MRI characteristics are likely benign. Six-alva h follow-up Limited right breast ultrasound recommended. BI-RADS Category 3. 2: Left breast: Negative. No evidence of malignancy. BI-RADS category 1. Recommend annual mammogr aphy follow-up. Follow-up MRI may be useful for supplementing mammographic evaluation as clinically indicated. Reviewed, dictated and finalized at location A. IMPRESSION: 1: Right breast: Probable benign left breast mass at approximately 3:00, middl e third which corresponds the region abnormality seen on recent ultrasound. MRI characteristics are likely benign. Six-month follow-up Limited right breast ul trasound recommended. BI-RADS Category 3. 2: Left breast: Negative. No evidence of malignancy. BI-RADS category 1. Re commend annual mammography follow-up. Follow-up MRI may be useful for supplementing mammographic evaluation as clinic ally indicated.
--- OUTSIDE RECORDS SUMMARY | 2024-06-11 10:44 | XMS_ITS | Data Portability ---
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 Plan of Treatment Reminders Order Date Submit Date Provider Last Modified By Organization Details Last Modified Time Details Appointments None recorded. Lab CMP, serum or plasma 2024 025 DARIO STEINBERG, [facility], [facility] [address], [place], [address], 5 08:26:39 CMP, serum or plasma 2023 024 DARIO STEINBERG, Manuel [facility], [address], [place], [address], 4 12:29:36 CBC w/ auto diff 2023 024 DARIO STEINBERG, [facility], [facility] [address], [place], [address], 4 12:29:38 lipid panel, serum 2023 024 DARIO STEINBERG, [facility], [facility] [address], [place], [address], 4 12:29:35 PTH (parathyroi d hormone), intact, serum or plasma 2023 024 Manuel [facility], [address], [place], [address], 4 20:09:54 gamma-gluta myl transferase (ggt), serum 2023 024 [facility], [address] [place], [place] [address]derrick Mason, [address], [place], [address], 4 20:09:53 vitamin D, 25-hydroxy, total, serum 2023 024 [facility], [address] [place], [place] [address]pamela Mason, [address], [place], [address], 4 20:09:55 unlisted lab - homocyst(E) ine+mma 2023 024 [facility], [address] [place], [place] [address]pamela Mason, [facility] [address], [place], [address], 4 20:09:50 iron + total iron-bindin g capacity (TIBC), serum 2023 024 [facility], [address] [place], [place] [address]derrick Mason, [address], [place], [address], 4 17:52:33 vitamin B12 + folate, serum or blood 2023 024 [facility], [address] [place], [place] [address]pamela Marlon, [address], [place], [address], 4 20:09:52 CMP, serum or plasma 2023 024 [facility], [address], [address], [place], [address], 4 23:08:46 lipid panel, serum 2023 024 [facility], [address], [address], [place], [address], 4 23:08:45 CBC w/ auto diff 2023 024 [facility], [address], [address], [place], [address], 4 23:08:46 TSH + free T4, serum 2023 024 [facility], [address], [address], [place], [address], 4 11:26:00 HbA1c (hemoglobin A1c), blood 2023 024 [facility], [address], [address], [place], [address], 4 11:26:00 Referral gastroenter ologist referral [address] [facility], [address], [address], [place], [address], 5 08:02:20 Procedures None recorded. Surgeries None recorded. Imaging US, breast, unilateral 2023 024 [facility], [address], [address], [place], [address], 4 12:03:02 Medication Orders losartan 25 mg tablet 2023 024 [facility], [address] [place], [address], 4 15:18:47 hydrocodone 5 mg-acetamin ophen 325 mg tablet 2022 023 [facility] [address], [address] [place], [address], 4 15:27:20 lidocaine 5 % topical patch 2022 024 [facility], [address] [facility], [place], [address], 10:18:42 Patient TargetsNo targets recorded. 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 for Liver enzymes level above reference range Referring Physician: Radha Smith, Family Medicine, Encounter Date: 05/05/2024 Results Created Date Observation Date Name Description Value Unit Range Abnormal Flag Note LastModifiedBy Organization Detail LastModifiedTime 11/01/1911/01/2023 LIPID PANEL WITH LDL/H DL RATIO cholesterol, total 207 mg/dL 100-19 9 above high normal Not Available [facility] [address] [place], [address], 11/01/2023 23:08:45 11/01/1911/01/2023 LIPID PANEL WITH LDL/H DL RATIO triglyceride s 126 mg/dL 0-149 Not Available [facility] [address] [place], [address], 11/01/2023 23:08:45 11/01/1911/01/2023 LIPID PANEL WITH LDL/H DL RATIO HDL cholesterol 83 mg/dL 40-999 Not Available [facility] Department [address] [place], [address], 11/01/2023 23:08:45 11/01/19 24 11/01/2023 LIPID PANEL WITH LDL/H DL RATIO VLDL cholesterol lauren 25 mg/dL 5-40 Not Available [facility] [address] [place], [address], 11/01/2023 23:08:45 11/01/19 24 11/01/2023 LIPID PANEL WITH LDL/H DL RATIO LDL chol calc (nih) 117 mg/dL 0-99 above high normal Not Available [facility] [address] [place], [address], 11/01/2023 23:08:45 11/01/19 24 11/01/2023 LIPID PANEL WITH LDL/H DL RATIO LDL/HDL ratio 1.4 0-3.2 Not Available [facility] [address] [place], [address], 11/01/2023 23:08:45 11/01/19 24 11/01/2023 COMP. METAB OLIC PANEL (14) glucose 117 mg/dL 70-99 above high normal Not Available [facility] [address] [place], [address], 11/01/2023 23:08:46 11/01/19 24 11/01/2023 COMP. METAB OLIC PANEL (14) BUN 7 mg/dL 6-24 Not Available [facility] [address] [place], [address], 11/01/2023 23:08:46 11/01/19 24 11/01/2023 COMP. METAB OLIC PANEL (14) creatinine <=0.46 mg/dL 0.76-1 .27 below low normal Not Available [facility] [address] [place], [address], 11/01/2023 23:08:46 11/01/19 24 11/01/2023 COMP. METAB OLIC PANEL (14) eGFR 114 >=60 Units for eGFR value s are mL/mi n/1.7 3 The eGFR Calcu latio n has not been valid ated for patie nts under the age of 18. If test resul ts are displ ayed for a patie nt under the age of 18, disre arely that value . Not Available [facility] [address] [place], [address], 11/01/2023 23:08:46 11/01/19 24 11/01/2023 COMP. METAB OLIC PANEL (14) BUN/creatini ne ratio 19 9-23 Not Available [facility] [address] [place], [address], 11/01/2023 23:08:46 11/01/19 24 11/01/2023 COMP. METAB OLIC PANEL (14) sodium 142 mmol/ L 134-14 4 Not Available [facility] [address] [place], [address], 11/01/2023 23:08:46 11/01/19 24 11/01/2023 COMP. METAB OLIC PANEL (14) potassium 2.9 mmol/ L 3.5-5. 2 below low normal Not Available [facility] [address] [place], [address], 11/01/2023 23:08:46 11/01/19 24 11/01/2023 COMP. METAB OLIC PANEL (14) chloride 100 mmol/ L 96-106 Not Available [facility] [address] [place], [address], 11/01/2023 23:08:46 11/01/19 24 11/01/2023 COMP. METAB OLIC PANEL (14) carbon dioxide, total 25 mmol/ L 20-29 Not Available [facility] [address] [place], [address], 11/01/2023 23:08:46 11/01/19 24 11/01/2023 COMP. METAB OLIC PANEL (14) calcium 7.9 mg/dL 8.7-10 .2 below low normal Not Available [facility] [address] [place], [address], 11/01/2023 23:08:46 11/01/19 24 11/01/2023 COMP. METAB OLIC PANEL (14) protein, total 6.9 g/dL 6.0-8. 5 Not Available [facility] [address] [place], [address], 11/01/2023 23:08:46 11/01/19 24 11/01/2023 COMP. METAB OLIC PANEL (14) albumin 4.1 g/dL 3.8-4. 9 Not Available [facility] [address] [place], [address], 11/01/2023 23:08:46 11/01/19 24 11/01/2023 COMP. METAB OLIC PANEL (14) globulin, total 2.8 g/dL 1.5-4. 5 Not Available [facility] [address] [place], [address], 11/01/2023 23:08:46 11/01/19 24 11/01/2023 COMP. METAB OLIC PANEL (14) A/G ratio 1.0 1.2-2. 2 below low normal Not Available [facility] [address] [place], [address], 11/01/2023 23:08:46 11/01/19 24 11/01/2023 COMP. METAB OLIC PANEL (14) bilirubin, total 2.6 mg/dL 0.0-1. 2 above high normal Not Available [facility] [address] [place], [address], 11/01/2023 23:08:46 11/01/19 24 11/01/2023 COMP. METAB OLIC PANEL (14) alkaline phosphatase 359 IU/L 44-121 above high normal Not Available [facility] [address] [place], [address], 11/01/2023 23:08:46 11/01/19 24 11/01/2023 COMP. METAB OLIC PANEL (14) AST (SGOT) 60 IU/L 0-40 above high normal Not Available [facility] [address] [place], [address], 11/01/2023 23:08:46 11/01/19 24 11/01/2023 COMP. METAB OLIC PANEL (14) ALT (SGPT) 10 IU/L 0-32 Not Available [facility] [address] [place], [address], 11/01/2023 23:08:46 11/01/19 24 11/01/2023 CBC WITH DIFFE RENTI AL/PL ATELE T WBC 12.9 x10e3 /uL 3.4-10 .8 above high normal Not Available [facility] [address] [place], [address], 11/01/2023 23:08:46 11/01/19 24 11/01/2023 CBC WITH DIFFE RENTI AL/PL ATELE T RBC 2.43 x10e6 /uL 3.77-5 .28 below low normal Not Available [facility] [address] [place], [address], 11/01/2023 23:08:46 11/01/19 24 11/01/2023 CBC WITH DIFFE RENTI AL/PL ATELE T hemoglobin 10.6 g/dL 11.1-1 5.9 below low normal Not Available [facility] [address] [place], [address], 11/01/2023 23:08:46 11/01/19 24 11/01/2023 CBC WITH DIFFE RENTI AL/PL ATELE T hematocrit 29.2 % 34.0-4 6.6 below low normal Not Available [facility] [address] [place], [address], 11/01/2023 23:08:46 11/01/19 24 11/01/2023 CBC WITH DIFFE RENTI AL/PL ATELE T MCV 120 fL 79-97 above high normal Not Available [facility] [address] [place], [address], 11/01/2023 23:08:46 11/01/19 24 11/01/2023 CBC WITH DIFFE RENTI AL/PL ATELE T MCH 43.6 pg 26.6-3 3.0 above high normal Not Available [facility] [address] [place], [address], 11/01/2023 23:08:46 11/01/19 24 11/01/2023 CBC WITH DIFFE RENTI AL/PL ATELE T MCHC 36.3 g/dL 31.5-3 5.7 above high normal Not Available [facility] [address] [place], [address], 11/01/2023 23:08:46 11/01/19 24 11/01/2023 CBC WITH DIFFE RENTI AL/PL ATELE T RDW 14.9 % 11.5-1 4.5 above high normal Not Available [facility] [address] [place], [address], 11/01/2023 23:08:46 11/01/19 24 11/01/2023 CBC WITH DIFFE RENTI AL/PL ATELE T platelets 235 x10e3 /uL 150-45 0 Not Available [facility] [address] [place], [address], 11/01/2023 23:08:46 11/01/19 24 11/01/2023 CBC WITH DIFFE RENTI AL/PL ATELE T neutrophils 74 % notest b. Not Available [facility] [address] [place], [address], 11/01/2023 23:08:46 11/01/19 24 11/01/2023 CBC WITH DIFFE RENTI AL/PL ATELE T lymphs 20 % notest b. Not Available [facility] [address] [place], [address], 11/01/2023 23:08:46 11/01/19 24 11/01/2023 CBC WITH DIFFE RENTI AL/PL ATELE T monocytes 5 % notest b. Not Available [facility] [address] [place], [address], 11/01/2023 23:08:46 11/01/19 24 11/01/2023 CBC WITH DIFFE RENTI AL/PL ATELE T eos 0 % notest b. Not Available [facility] [address] [place], [address], 11/01/2023 23:08:46 11/01/19 24 11/01/2023 CBC WITH DIFFE RENTI AL/PL ATELE T basos 0 % notest b. Not Available [facility] [address] [place] [address], [address], 11/01/2023 23:08:46 11/01/19 24 11/01/2023 CBC WITH DIFFE RENTI AL/PL ATELE T neutrophils (absolute) 9.5 x10e3 /uL 1.4-7. 0 above high normal Not Available [facility] [address] [place] [address], [address], 11/01/2023 23:08:46 11/01/19 24 11/01/2023 CBC WITH DIFFE RENTI AL/PL ATELE T lymphs (absolute) 2.6 x10e3 /uL 0.7-3. 1 Not Available [facility] [address] [place], [address], 11/01/2023 23:08:46 11/01/19 24 11/01/2023 CBC WITH DIFFE RENTI AL/PL ATELE T monocytes(ab solute) 0.7 x10e3 /uL 0.1-0. 9 Not Available [facility] [address] [place], [address], 11/01/2023 23:08:46 11/01/19 24 11/01/2023 CBC WITH DIFFE RENTI AL/PL ATELE T eos (absolute) 0.1 x10e3 /uL 0.0-0. 4 Not Available [facility] [address] [place] [address], [address], 11/01/2023 23:08:46 11/01/19 24 11/01/2023 CBC WITH DIFFE RENTI AL/PL ATELE T baso (absolute) 0.0 x10e3 /uL 0.0-0. 2 Not Available [facility] [address] [place], [address], 11/01/2023 23:08:46 11/01/19 24 11/01/2023 CBC WITH DIFFE RENTI AL/PL ATELE T immature granulocytes 0.5 % notest b. Not Available [facility] [address] [place] [address], [address], 11/01/2023 23:08:46 11/01/19 24 11/01/2023 CBC WITH DIFFE RENTI AL/PL ATELE T immature grans (abs) 0.1 x10e3 /uL 0.0-0. 1 Not Available [facility] [address] [place] [address], [address], 11/01/2023 23:08:46 11/01/19 24 11/01/2023 CBC WITH DIFFE RENTI AL/PL ATELE T NRBC 0 % 0-0 Not Available [facility] [address] [place] [address], [address], 11/01/2023 23:08:46 11/01/19 24 11/02/2023 TSH+F REE T4 TSH 1.860 uIU/m L 0.450- 4.500 Not Available [facility]) [address] [facility], [place], [address], 11/02/2023 11:26:00 11/01/19 24 11/02/2023 TSH+F REE T4 T4,free(dire ct) 1.66 NG/dL 0.82-1 .77 Not Available [facility] ([facility]) [address] [facility], [place], [address], 11/02/2023 11:26:00 11/01/19 24 11/02/2023 HEMOG LOBIN A1C hemoglobin A1C 5.7 % 4.8-5. 6 above high normal Predi abete s: 5.7 - 6.4 Diabe graham: >6.4 Glyce oz contr ol for adult s with diabe graham: <7.0 Not Available [facility] ([facility]) [address] [facility], [place], [address], 11/02/2023 11:26:00 12/25/19 24 12/26/2023 SPECI MEN STATU S REPOR T specimen status report TNP Test not perfo rmed. No plasm a speci men recei latoya. TEST: 03522 0 PTH, Intac t Not Available [facility] ([facility]) [address] [facility], [place], [address], 01/06/2024 20:09:50 12/25/19 24 12/27/2023 LIPID PANEL WITH LDL/H DL RATIO cholesterol, total - mg/dL Test not perfo rmed. We have recei latoya your reque st for addit ional testi ng. We are not able to add the test( s) reque sted. Not Available [facility] ([facility]) [address] [facility], [place], [address], 12/27/2023 12:29:34 12/25/19 24 12/27/2023 LIPID PANEL WITH LDL/H DL RATIO triglyceride s - Test not perfo rmed Not Available [facility] ([facility]) [address] [facility], [place], [address], 12/27/2023 12:29:34 12/25/19 24 12/27/2023 LIPID PANEL WITH LDL/H DL RATIO HDL cholesterol - Test not perfo rmed Not Available [facility] ([facility]) [address] [facility], [place], [address], 12/27/2023 12:29:34 12/25/19 24 12/27/2023 LIPID PANEL WITH LDL/H DL RATIO VLDL cholesterol lauren TNP mg/dL Unabl e to calcu late resul t since non-n umeri c resul t obtai jose for compo nent test. Not Available [facility] ([facility]) [address] [facility], [place], [address], 12/27/2023 12:29:34 12/25/19 24 12/27/2023 COMP. METAB OLIC PANEL (14) glucose - mg/dL Test not perfo rmed. We have recei latoya your reque st for addit ional testi ng. We are not able to add the test( s) reque sted. Not Available [facility] ([facility]) [address] [facility], [place], [address], 12/27/2023 12:29:36 12/25/19 24 12/27/2023 COMP. METAB OLIC PANEL (14) BUN - Test not perfo rmed Not Available [facility] ([facility]) [address] [facility], [place], [address], 12/27/2023 12:29:36 12/25/19 24 12/27/2023 COMP. METAB OLIC PANEL (14) creatinine - Test not perfo rmed Not Available [facility] ([facility]) [address] [facility], [place], [address], 12/27/2023 12:29:36 12/25/19 24 12/27/2023 COMP. METAB OLIC PANEL (14) sodium - Test not perfo rmed Not Available [facility] ([facility]) [address] [facility], [place], [address], 12/27/2023 12:29:36 12/25/19 24 12/27/2023 COMP. METAB OLIC PANEL (14) potassium - Test not perfo rmed Not Available [facility] ([facility]) [address], [place], [address], 12/27/2023 12:29:36 12/25/19 24 12/27/2023 COMP. METAB OLIC PANEL (14) chloride - Test not perfo rmed Not Available [facility] ([facility]) [address], [place], [address], 12/27/2023 12:29:36 12/25/19 24 12/27/2023 COMP. METAB OLIC PANEL (14) carbon dioxide, total - Test not perfo rmed Not Available [facility] ([facility]) [address], [place], [address], 12/27/2023 12:29:36 12/25/19 24 12/27/2023 COMP. METAB OLIC PANEL (14) calcium - Test not perfo rmed Not Available [facility] ([facility]) [address], [place], [address], 12/27/2023 12:29:36 12/25/19 24 12/27/2023 COMP. METAB OLIC PANEL (14) protein, total - Test not perfo rmed Not Available [facility] ([facility]) [address], [place], [address], 12/27/2023 12:29:36 12/25/19 24 12/27/2023 COMP. METAB OLIC PANEL (14) albumin - Test not perfo rmed Not Available [facility] ([facility]) [address] [place], [address], 12/27/2023 12:29:36 12/25/19 24 12/27/2023 COMP. METAB OLIC PANEL (14) bilirubin, total - Test not perfo rmed Not Available [facility] ([facility]) [address], [place], [address], 12/27/2023 12:29:36 12/25/19 24 12/27/2023 COMP. METAB OLIC PANEL (14) alkaline phosphatase - Test not perfo rmed Not Available [facility] ([facility]) [address] [facility], [place], [address], 12/27/2023 12:29:36 12/25/19 24 12/27/2023 COMP. METAB OLIC PANEL (14) AST (SGOT) - Test not perfo rmed Not Available [facility] ([facility]) [address] [facility], [place], [address], 12/27/2023 12:29:36 12/25/19 24 12/27/2023 COMP. METAB OLIC PANEL (14) ALT (SGPT) - Test not perfo rmed Not Available [facility] ([facility]) [address] [facility], [place], [address], 12/27/2023 12:29:36 12/25/19 24 12/26/2023 MAYNOR EN AUTHO RIZAT ION written authorizatio n Ajay t Maynor en Autho rizat ion Recei latoya. Autho rizat ion recei latoya from PER ORIGI NAL ORDER 12-25 Logge d by Dorys Ruiz as Not Available [facility] ([facility]) [address] [facility], [place], [address], 12/27/2023 12:29:37 12/25/19 24 12/26/2023 CBC WITH DIFFE RENTI AL/PL ATELE T WBC 12.5 x10e3 /uL 3.4-10 .8 above high normal Not Available [facility] ([facility]) [address] [facility], [place], [address], 12/27/2023 12:29:38 12/25/19 24 12/26/2023 CBC WITH DIFFE RENTI AL/PL ATELE T RBC 2.68 x10e6 /uL 3.77-5 .28 alert low Red blood cells appea r sligh tly agglu tinat ed Not Available [facility] ([facility]) [address] [facility], [place], [address], 12/27/2023 12:29:38 12/25/19 24 12/26/2023 CBC WITH DIFFE RENTI AL/PL ATELE T hemoglobin 11.8 g/dL 11.1-1 5.9 Not Available [facility] ([facility]) [address] [facility], [place], [address], 12/27/2023 12:29:38 12/25/19 24 12/26/2023 CBC WITH DIFFE RENTI AL/PL ATELE T hematocrit 31.9 % 34.0-4 6.6 below low normal Not Available [facility] ([facility]) [address] [facility], [place], [address], 12/27/2023 12:29:38 12/25/19 24 12/26/2023 CBC WITH DIFFE RENTI AL/PL ATELE T MCV 119 fL 79-97 above high normal Not Available [facility] ([facility]) [address] [place], [address], 12/27/2023 12:29:38 12/25/19 24 12/26/2023 CBC WITH DIFFE RENTI AL/PL ATELE T MCH 44.0 pg 26.6-3 3.0 above high normal Not Available [facility] ([facility]) [address] [place], [address], 12/27/2023 12:29:38 12/25/19 24 12/26/2023 CBC WITH DIFFE RENTI AL/PL ATELE T MCHC 37.0 g/dL 31.5-3 5.7 above high normal Not Available [facility] ([facility]) [address] [place], [address], 12/27/2023 12:29:38 12/25/19 24 12/26/2023 CBC WITH DIFFE RENTI AL/PL ATELE T RDW 13.1 % 11.7-1 5.4 Not Available [facility] ([facility]) [address] [facility], [place], [address], 12/27/2023 12:29:38 12/25/19 24 12/26/2023 CBC WITH DIFFE RENTI AL/PL ATELE T platelets 350 x10e3 /uL 150-45 0 Not Available [facility] ([facility]) [address] [facility], [place], [address], 12/27/2023 12:29:38 12/25/19 24 12/26/2023 CBC WITH DIFFE RENTI AL/PL ATELE T neutrophils 79 % notest ab. Not Available [facility] ([facility]) [address] [facility], [place], [address], 12/27/2023 12:29:38 12/25/19 24 12/26/2023 CBC WITH DIFFE RENTI AL/PL ATELE T lymphs 13 % notest ab. Not Available [facility] ([facility]) [address] [facility], [place], [address], 12/27/2023 12:29:38 12/25/19 24 12/26/2023 CBC WITH DIFFE RENTI AL/PL ATELE T monocytes 6 % notest ab. Not Available [facility] ([facility]) [address] [facility], [place], [address], 12/27/2023 12:29:38 12/25/19 24 12/26/2023 CBC WITH DIFFE RENTI AL/PL ATELE T eos 1 % notest ab. Not Available [facility] ([facility]) [address] [facility], [place], [address], 12/27/2023 12:29:38 12/25/19 24 12/26/2023 CBC WITH DIFFE RENTI AL/PL ATELE T basos 0 % notest ab. Not Available [facility] ([facility]) [address] [facility], [place], [address], 12/27/2023 12:29:38 12/25/19 24 12/26/2023 CBC WITH DIFFE RENTI AL/PL ATELE T neutrophils (absolute) 9.9 x10e3 /uL 1.4-7. 0 above high normal Not Available [facility] ([facility]) [address] [facility], [place], [address], 12/27/2023 12:29:38 12/25/19 24 12/26/2023 CBC WITH DIFFE RENTI AL/PL ATELE T lymphs (absolute) 1.7 x10e3 /uL 0.7-3. 1 Not Available [facility] ([facility]) [address] [facility], [place], [address], 12/27/2023 12:29:38 12/25/19 24 12/26/2023 CBC WITH DIFFE RENTI AL/PL ATELE T monocytes(ab solute) 0.7 x10e3 /uL 0.1-0. 9 Not Available [facility] ([facility]) [address] [facility], [place], [address], 12/27/2023 12:29:38 12/25/19 24 12/26/2023 CBC WITH DIFFE RENTI AL/PL ATELE T eos (absolute) 0.1 x10e3 /uL 0.0-0. 4 Not Available [facility] ([facility]) [address] [facility], [place], [address], 12/27/2023 12:29:38 12/25/19 24 12/26/2023 CBC WITH DIFFE RENTI AL/PL ATELE T baso (absolute) 0.1 x10e3 /uL 0.0-0. 2 Not Available [facility] ([facility]) [address] [facility], [place], [address], 12/27/2023 12:29:38 12/25/19 24 12/26/2023 CBC WITH DIFFE RENTI AL/PL ATELE T immature granulocytes 1 % notest ab. Not Available [facility] ([facility] [facility]) [address] [facility], [place], [address], 12/27/2023 12:29:38 12/25/19 24 12/26/2023 CBC WITH DIFFE RENTI AL/PL ATELE T immature grans (abs) 0.1 x10e3 /uL 0.0-0. 1 Not Available [facility] ([facility]) [address] [facility], [place], [address], 12/27/2023 12:29:38 12/25/19 24 12/26/2023 CBC WITH DIFFE RENTI AL/PL ATELE T hematology comments: NOTE: Verif ied by deon holcomb n. Not Available [facility] ([facility]) [address] [facility], [place], [address], 12/27/2023 12:29:38 12/25/19 24 01/01/2024 HOMOC YST(E )INE+ MMA methylmaloni c acid, serum 185 nmol/ L 0-378 Not Available [facility] ([facility]) [address] [facility], [place], [address], 01/06/2024 20:09:50 12/25/19 24 01/06/2024 HOMOC YST(E )INE+ MMA homocysteine , serum 176.4 umol/ L 5.1-13 .9 alert high Resul ts confi rmed on dilut ion. Not Available [facility] ([facility]) [address] [facility], [place], [address], 01/06/2024 20:09:50 12/25/19 24 12/26/2023 VITAM IN B12 AND FOLAT E vitamin B12 1153 pg/mL 232-12 45 Not Available [facility] ([facility]) [address] [facility], [place], [address], 01/06/2024 20:09:52 12/25/19 24 12/26/2023 VITAM IN B12 AND FOLAT E folate (folic acid), serum 3.7 NG/mL >3.0 A serum folat e yen ntrat ion of less than 3.1 ng/mL is consi dered to repre sent clini lauren defic iency . Not Available [facility] ([facility]) [address] [facility], [place], [address], 01/06/2024 20:09:52 12/25/19 24 12/26/2023 IRON AND TIBC iron bind.cap.(TI BC) 345 ug/dL 250-45 0 Not Available [facility] ([facility]) [address] [facility], [place], [address], 01/06/2024 20:09:53 12/25/19 24 12/26/2023 IRON AND TIBC UIBC 158 ug/dL 131-42 5 Not Available [facility] ([facility]) [address] [facility], [place], [address], 01/06/2024 20:09:53 12/25/19 24 12/26/2023 IRON AND TIBC iron 187 ug/dL 27-159 above high normal Not Available [facility] ([facility]) [address] [facility], [place], [address], 01/06/2024 20:09:53 12/25/19 24 12/26/2023 IRON AND TIBC iron saturation 54 % 15-55 Not Available [facility] ([facility]) [address] [facility], [place], [address], 01/06/2024 20:09:53 12/25/19 24 12/26/2023 GGT GGT 2164 IU/L 0-60 alert high Resul ts confi rmed on dilut ion. Not Available [facility] ([facility]) [address] [place], [address], 01/06/2024 20:09:53 12/25/19 24 12/26/2023 PTH, INTAC T PTH, intact - pg/mL Test not perfo rmed. No plasm a speci men recei latoya. Not Available [facility] ([facility]) [address] [facility], [place], [address], 01/06/2024 20:09:54 12/25/19 24 12/26/2023 VITAM IN [...] 1. IOM (Inst itute of Medic ine). 2009. Dieta ry refer ence intak es for calci um and D. Morales culver [place]: [facility] . 2. Bryan driscoll MF, Dez guevara [place], Kat[place]ka off-F jessiac i FERNANDEZ, et al. Evalu ation , treat ment, and preve ntion of vitam in D defic iency : an Endoc rine Socie ty clini lauren pract ice guide line. JCEM. 2010; 96(7) :1911 -30. Not Available [facility] ([facility]) [address] [facility], [place], [address], 01/06/2024 20:09:55 05/06/19 25 05/06/2024 COMP. METAB OLIC PANEL (14) glucose 125 mg/dL 70-99 above high normal Not Available [facility] ([facility]) [address] [facility], [place], [address], 05/06/2024 08:26:39 05/06/19 25 05/06/2024 COMP. METAB OLIC PANEL (14) BUN 12 mg/dL 6-24 Not Available [facility] ([facility]) [address] [facility] [place], [address], 05/06/2024 08:26:39 05/06/19 25 05/06/2024 COMP. METAB OLIC PANEL (14) creatinine 0.74 mg/dL 0.57-1 .00 Not Available [facility] ([facility]) [address] [facility] [place], [address], 05/06/2024 08:26:39 05/06/19 25 05/06/2024 COMP. METAB OLIC PANEL (14) eGFR 97 mL/mi n/1.7 3 >59 Not Available [facility] ([facility]) [address] [facility] [place], [address], 05/06/2024 08:26:39 05/06/19 25 05/06/2024 COMP. METAB OLIC PANEL (14) BUN/creatini ne ratio 16 9-23 Not Available [facility] ([facility]) [address] [facility] [place], [address], 05/06/2024 08:26:39 05/06/19 25 05/06/2024 COMP. METAB OLIC PANEL (14) sodium 138 mmol/ L 134-14 4 Not Available [facility] ([facility]) [address] [facility] [place], [address], 05/06/2024 08:26:39 05/06/19 25 05/06/2024 COMP. METAB OLIC PANEL (14) potassium 4.9 mmol/ L 3.5-5. 2 Not Available [facility] ([facility]) [address] [facility] [place], [address], 05/06/2024 08:26:39 05/06/19 25 05/06/2024 COMP. METAB OLIC PANEL (14) chloride 103 mmol/ L 96-106 Not Available [facility] ([facility]) [address] [place], [address], 05/06/2024 08:26:39 05/06/19 25 05/06/2024 COMP. METAB OLIC PANEL (14) carbon dioxide, total 18 mmol/ L 20-29 below low normal Not Available [facility] ([facility]) [address] [facility] [place], [address], 05/06/2024 08:26:39 05/06/19 25 05/06/2024 COMP. METAB OLIC PANEL (14) calcium 9.2 mg/dL 8.7-10 .2 Not Available [facility] ([facility]) [address] [facility] [place], [address], 05/06/2024 08:26:39 05/06/19 25 05/06/2024 COMP. METAB OLIC PANEL (14) protein, total 7.3 g/dL 6.0-8. 5 Not Available [facility] ([facility]) [address] [facility] [place], [address], 05/06/2024 08:26:39 05/06/19 25 05/06/2024 COMP. METAB OLIC PANEL (14) albumin 4.1 g/dL 3.8-4. 9 Not Available [facility] ([facility]) [address] [facility] [place], [address], 05/06/2024 08:26:39 05/06/19 25 05/06/2024 COMP. METAB OLIC PANEL (14) globulin, total 3.2 g/dL 1.5-4. 5 Not Available [facility] ([facility]) [address] [facility] [place], [address], 05/06/2024 08:26:39 05/06/19 25 05/06/2024 COMP. METAB OLIC PANEL (14) bilirubin, total 0.9 mg/dL 0.0-1. 2 Not Available [facility] ([facility]) [address] [facility] [place], [address], 05/06/2024 08:26:39 05/06/19 25 05/06/2024 COMP. METAB OLIC PANEL (14) alkaline phosphatase 471 IU/L 44-121 above high normal Not Available [facility] ([facility]) [address] [facility], [place], [address], 05/06/2024 08:26:39 05/06/19 25 05/06/2024 COMP. METAB OLIC PANEL (14) AST (SGOT) 84 IU/L 0-40 above high normal Not Available [facility] ([facility]) [address] [facility], [place], [address], 05/06/2024 08:26:39 05/06/19 25 05/06/2024 COMP. METAB OLIC PANEL (14) ALT (SGPT) 17 IU/L 0-32 Not Available [facility] ([facility]) [address] [place], [address], 05/06/2024 08:26:39 01/27/20 23 01/25/2023 CT, lumba r spine , w/o contr ast No observ ation record ed. [address], [address], 01/29/2023 09:20:45 02/05/20 23 02/02/2023 MRI, lumba r spine , w/wo contr ast No observ ation record ed. [address] [address], [place], [address], 02/07/2023 09:32:32 02/11/20 23 02/10/2023 XR, ribs, unila teral , 2 view No observ ation record ed. [address] [address], [place], [address], 02/19/2023 18:08:58 04/05/19 24 04/04/2023 MAMMO , diagn ostic , unila teral No observ ation record ed. [address], [place], [address], 04/16/2023 12:42:53 05/08/19 24 05/07/2023 MRI, breas t, bilat eral, w/ contr ast No observ ation record ed. [address], [place], [address], 05/10/2023 15:28:34 05/14/19 24 04/04/2023 MAMMO , diagn ostic , unila teral No observ ation record ed. [address], [place], [address], 05/15/2023 10:19:23 05/30/19 24 01/25/2023 CT, lumba r spine , w/wo contr ast No observ ation record ed. [address], [place], [address], 05/30/2023 14:32:25 07/24/19 24 07/20/2023 DEXA, axial skele ton + verte bral fract ure asses sment No observ ation record ed. [address], [place], [address], 07/26/2023 14:01:35 12/04/19 24 12/04/2023 MAMMO , diagn ostic , digit al, bilat eral No observ ation record ed. [address], [place], [address], 12/11/2023 15:50:46 Result Notes None recorded. Problems Name Problem SNOMED Code Status Onset Date Resolution Date Notes Provider Name and Address Organization Details Recorded Time Influenza vaccinati on declined 452438045 Active 2017 Not Available [facility] 2 01:31:09 Nicotine dependenc e 45468955 Active 2017 Not Available [facility] 2 01:31:09 Body mass index 25-29 - overweigh t 342574019 Active 2017 Not Available [facility] 2 01:31:09 Continuou s chronic alcoholis m 262281776 Active 2018 LUCIA GARLAND Attn: Accounting ,[address], [place], [address] , [place] [facility] 2 14:32:15 Fibrocyst ic disease of breast 02851243 Active 2018 Not Available [facility] 2 01:31:09 Spinal stenosis of lumbar region 44204146 Active 2019 LUCIA GARLAND Attn: Accounting ,[address], [place], [address] , [place] [facility] 2 14:32:24 Degenerat ion of lumbar intervert ebral disc 66879252 Active 2019 Not Available [facility] 2 01:31:09 History of lumbar laminecto my 78342481849 533114 Active 2019 LUCIA GARLAND Attn: Accounting ,[address], [place], [address] , [place] - [facility] 2 14:32:30 Liver enzymes level above reference range 447844086 Active 2019 LUCIA GARLAND Attn: Accounting ,[address], [place], [address] , [place] [facility] 2 12:26:00 Tobacco dependenc e syndrome 64378322 Active 2021 LUCIA GARLAND Attn: Accounting ,[address], [place], [address] , [place] [facility] 2 14:32:20 Screening for malignant neoplasm of colon Active 2021 cologuard negative 11/2021, repeat 2024 LUCIA GARLAND Attn: Accounting ,[address], [place], [address] , [place] [facility] 2 09:29:23 Essential hypertens ion 30781587 Active 2022 LUCIA GARLAND Attn: Accounting ,[address], [place], [address] , [place] [facility] 3 13:59:16 Hyperlipi demia 22543438 Active 2022 LUCIA GARLAND Attn: Accounting ,[address], [place], [address] , [place] [facility] 3 12:02:44 Gastroeso phageal reflux disease without esophagit is 338149031 Active 2023 LUCIA GARLAND Attn: Accounting ,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, [place], [address] , [place] [facility] 4 14:57:05 Osteopeni a 720873156 Active 2024 LUCIA GARLAND Attn: Accounting ,[address], [place], [address] , [place] [facility] 5 21:25:20 Hypokalem ia 09622640 Active 2024 LUCIA GARLAND Attn: Accounting ,[address], [place], [address] , [place] [facility] 5 21:25:13 Notes:Some problems listed i n Document: #[id number] could not be added to this patient's chart. Please review this document and add these problems to the patient's chart manually as needed. Problem Notes None recorded. Procedures Surgical History Date Name Laterality Status Provider Name and Address Organization Details Recorded Time 10/29/19 24 Carpal tunnel surgery completed Norma Castillo [place] [facility] 11/01/2023 10:15:36 12/27/19 22 Date of Last Pap Smear completed LUCIA GARLAND Attn: Accounting,[address], [place], [address], [place] [facility] 01/01/2022 14:25:58 12/27/19 22 Date of Last Mammogram completed LUCIA GARLAND Attn: Accounting,[address] [facility], [place], [address], [place] [facility] 01/01/2022 14:26:10 04/20/19 20 excision of lamina of lumbar vertebra for decompression of spinal cord completed Shwetha Medina MD Attn: Accounting,[address] [facility], [place], [address], [place] [facility] 05/25/2019 12:51:52 Knee Surgery completed Shwetha Medina MD Attn: Accounting,[address] [facility], [place], [address], [facility] - [facility] 11/05/2017 14:15:25 Breast Surgery completed Shwetha Medina MD Attn: Accounting,[address], [place], [address], [facility] - [facility] 04/07/2019 12:10:52 ligation of bilateral fallopian tubes completed LUCIA GARLAND Attn: Accounting,[address] [facility], [place], [address], [facility] - [facility] 10/24/2022 14:14:41 Imaging Results Imaging Date Name Status LastModified by Organiz ation Details LastModified Time 01/25/2023 CT, lumbar spine, w/o contrast completed [address], [address], 01/29/2023 09:20:45 02/02/2023 MRI, lumbar spine, w/wo contrast completed [address], [address], 02/07/2023 09:32:32 02/10/2023 XR, ribs, unilateral, 2 view completed [address], [address], 02/19/2023 18:08:58 04/04/2023 MAMMO, diagnostic, unilateral completed [facility] [address] [place] [address] [address], [place], [address], 04/16/2023 12:42:53 05/07/2023 MRI, breast, bilateral, w/ contrast completed [address], [place], [address], 05/10/2023 15:28:34 04/04/2023 MAMMO, diagnostic, unilateral completed [address], [place], [address], 05/15/2023 10:19:23 01/25/2023 CT, lumbar spine, w/wo contrast completed [address], [place], [address], 05/30/2023 14:32:25 07/20/2023 DEXA, axial skeleton + vertebral fracture assessment completed [address] [facility], [place], [address], 07/26/2023 14:01:35 12/04/2023 MAMMO, diagnostic, digital, bilateral completed [address] [facility], [place], [address], 12/11/2023 15:50:46 Procedure Notes None recorded. Medical Equipment None Reported. Allergies Allergen ID Allergen Name Allergen Category Reaction Reaction Severity Criticality Documentation Date Start Date Code Code System Note Provider Name and Address Organization Details Recorded Time 086517 clindamyc in Not available hives severe Not [...] TABLET BY MOUTH ONCE DAILY AT BEDTIME 2024 active Not Available Not Available Not Avai lable cetirizine 10 mg tablet TAKE 1 TABLET BY MOUTH ONCE DAILY IN THE MORNING 2024 active Not Available Not Available Not Avai lable Tab-A-Fela tablet 06/30 completed Not Available Not [...] ONCE DAILY WITH MEALS FOR 14 DAYS 05/05 completed Not Available Not Available Not Available famotidine 20 mg tablet TAKE 1 [...] Not Available Not Available Not Available cholecalcif nahdi (vitamin D3) 1,250 mcg (50,000 unit) capsule TAKE 1 CAPSULE BY MOUTH ONCE A WEEK WITH MEALS active Not Available Not Available No t Available potassium chloride ER 20 mEq tablet,exte nded release TAKE 2 TABLETS BY MOUTH ONCE DAILY WITH MEALS active Not Available Not Available [...] Not Available Vitals Date Recorded Body height Body mass index (BMI) Body weight Oxygen saturation Oxygen saturation in Arterial blood by Pulse oximetry Heart rate Respiratory rate Body temperature Systolic blood pressure Diastolic blood pressure Provider Name and Address Organization Details Last Updated DateTime 3 160.02 cm 28.2 kg/m2 88402.2 9 g 98 % 98 % 86 /min 16 /min 98.4 [degF] 134 mm[Hg] 76 mm[Hg] Carmel Austin MA [facility] 3 12:53:36 Date Recorded Body height Body mass index (BMI) Body weight Systolic blood pressure Diastolic blood pressure Provider Name and Address Organization Details Last Updated DateTime 03/22/2023 160.02 cm 28.4 kg/m2 23056.58 g 145 mm[Hg] 81 mm[Hg] Gina Mcdonald MA [facility] 4 11:51:28 Date Recorded Oxygen saturation Oxygen saturation in Arterial blood by Pulse oximetry Heart rate Respiratory rate Provider Name and Address Organization Details Last Updated DateTime 03/22/2023 99 % 99 % 85 /min 18 /min LUCIA GARLAND Attn: Donna maurer,[address] [place], [address], [facility] 4 12:13:27 Date Recorded Body height Body mass index (BMI) Body weight Oxygen saturation Oxygen saturation in Arterial blood by Pulse oximetry Heart rate Respiratory rate Systolic blood pressure Diastolic blood pressure Provider Name and Address Organization Details Last Updated DateTime 4 160.02 cm 28.9 kg/m2 52896.9 6 g 98 % 98 % 87 /min 17 /min 137 mm[Hg] 78 mm[Hg] Norma Castillo MA [facility] 4 10:15:01 Date Recorded Body height Body mass index (BMI) Body weight Oxygen saturation Oxygen saturation in Arterial blood by Pulse oximetry Heart rate Respiratory rate Systolic blood pressure Diastolic blood pressure Provider Name and Address Organization Details Last Updated DateTime 5 160.02 cm 29.3 kg/m2 49182.4 9 g 96 % 96 % 99 /min 18 /min 137 mm[Hg] 82 mm[Hg] Irasema Clements MA [facility] 5 10:13:40 Social History Question Answer Notes LastModified by Organizat ion Details LastModified Time Tobacco Smoking Status Current Every Day Smoker Meghan Cagle MA [facility], [place] - [facility] 11/05/2017 14:01:10 Do You Have An Advance [...] Date Of Your Most Recent Tobacco Screening? 05/05/2024 [email or web address] Information not available 05/05/2024 What Is Your Current Pack Years? 10packyears [...] Anxious, Or Unable To Sleep At Night)? [id number] Information not available 11/14/2021 Do You Use Sunscreen Routinely? No Information not available 11/05/2017 Has Tobacco Cessation Counseling Been Provided? Yes Information not available 06/30/2020 On What Date Was Tobacco Cessation Counseling Provided? 05/05/2024 [email or web address] Information not available 05/05/2024 How Many Years Have You Smoked Tobacco? [...] Atrial Fibrillation N High Blood Pressure N Kidney or Bladder Problems N Thyroid Problems N GI Problems N Depression N COPD N Blood Clots N Skin Problems N Anemia N Heart Attack ([place]) N Anxiety Disorder N Diabetes N Muscle, Joint, or Bone Problems N Seizures/Epilepsy N Acid Reflux (GERD) N Cancer N Stroke N Asthma N Allergies N High Cholesterol N Hepatitis N Liver Disease N Headaches N Heart Failure N Osteoporosis N Gynecological History Statement/Question Response Date of [...] Recorded Time Tdap 02/18/2015 completed Not Available [facility] 07/22/2021 01:31:09 Past Encounters Encounter ID Performer Location Encounter Start Date Encounter Closed Date Diagnosis/Indication Diagnosis SNOMED-CT Code Diagnosis ICD10 Code Diagnosis Note [id number] [facility] [address] [place] [id number] 11/05/2017 13:39:30 11/05/2017 14:32:26 General examination of patient 439297411 Z00.01 Nicotine dependence 5629 4008 F17.200 Influenza vaccination declined 420673878 Z28.21 Screening mammography 24 257064 Z12.31 Screening for malignant neoplasm of cervix 057080860 Z12.4 [id number] JUANITA Johns (Adult Med) [address] [place] [id number] 12/06/2017 10:54:15 12/09/2017 11:47:48 Gynecologic examination 62783848 Z01.411 Body mass index 25-29 - overweight 737236407 Z68.26 Advised 30 minutes of exercise 5 days/week Advised to not drink her calories Advised 3 balanced meals/day with plenty of fruits and vegtables [id number] MD Silva Lee (Adult Med) [address] [place] [phone] 12/17/2017 11:09:41 12/17/2017 11:55:48 Hypokalemia 40224542 E87.6 Apparently this is chronic Mammography abnormal 168 921331 R92.8 Discussed Influenza vaccination declined 715015770 Z28.21 [id number] MD Silva Lee (Adult Med) [address] [place] [phone] 04/04/2018 12:08:19 04/07/2018 08:47:42 Continuous chronic alcoholism 704377718 F10.20 Detailed discussion She is not interested in inpatient treatment or similar options, she is agreeable to a short course of Librium and a follow up appointmen t with the Psychiatri .I have explained the role of Librium to her as well as the side effects.[employer] query was done and she had received Librium 03/04/2018 for 10 days from her surgeon. Electrolyte imbalance 10 6133728 E87.8 Most likely due to GI loss from her recurrent vomiting Nausea and vomiting 1693 1999 R11.2 ETOH? Fibrocysti c disease of breast 77028924 N60.19 [id number] MD Silva Lee (Adult Med) [address] [place] [id number] 05/02/2018 11:13:35 05/05/2018 10:30:21 Chronic hypokalemia 04212365 E87.6 Hypomagnesemia 959640309 E83.42 Mg 1.2 04/29/2018 Continuous chronic alcoholism 198185218 F10.20 [id number] MD Silva Lee (Adult Med) [address] [place] [id number] 09/17/2018 12:08:08 09/17/2018 17:02:31 Chronic back pain 919845208 G89.29 Chronic cough 21082071 R 05 Her cough is chronic and her CXR was normal in November 2017.Asthm a?COPD? Medication monitoring 39 8039901 Z51.81 Disorder o f lipid metabolism 460727410 E78.9 [id number] MD Silva Lee (Adult Med) [address] [place] [id number] 11/07/2018 11:49:52 11/10/2018 09:06:12 Hypomagnesemia 679992863 E83.42 Mg 0.8 10/02/2018D iscussed with Ms Nunu. She is no longer on oral Mg replacemen t. Restart Mg, see eRx and orders.Lab s in a week Chronic cough 36206484 R 05 Her cough is chronic and her CXR was normal in November 2017.Asthm a?COPD?Imp rovement with Montelukas t and her PFTS are confusing, restrivtiv e disease or interstuil ial lung disease. Nicotine dependence 5629 4008 F17.200 Influenza vaccination declined 985519353 Z28.21 [id number] MD Silva Lee (Adult Med) [address] [place] [phone] 04/07/2019 11:08:56 04/08/2019 09:16:45 Episodic chronic alcoholism 631626577 F10.20 Pre-surger y evaluation 522236710 Z01.818 Moderate risk of complicati ons.NL CXR 04/02/2019T he EKG and lab results are pending. Hypomagnesemia 693525212 E83.42 Recheck Fibrocysti c disease of breast 76429648 N60.19 Spinal robbin nosis of lumbar region 41308267 M48.061 Degenerati on of lumbar intervertebral disc 83744419 M51.36 [id number] MD Silva eLe (Adult Med) [address] [place] [id number] 05/25/2019 09:25:28 05/26/2019 09:26:40 Continuous chronic alcoholism 687717690 F10.20 Liver enzy mes level above reference range 697621219 R74.8 Hypomagnesemia 400600138 E83.42 Mg 1.1 04/08/2019R estart MgRecheck 04/13/2019 Anemia 771860958 D64.9 History of lumbar laminectomy 4879517715 3062023 Z98.110 [id number] MD Silva Lee (Adult Med) [address] [place] [id number] 07/20/2019 09:06:47 07/21/2019 16:17:08 Liver enzymes level above reference range 029111166 R74.8 Possibly related to her alcohol useUSGI Continuous chronic alcoholism 962098094 F10.20 Hypomagnesemia 686265315 E83.42 Mg 1.4 07/14/2019C ontinue MgRecheck 04/13/2019 Anemia 414605181 D64.9 Fibrocysti c disease of breast 22609344 N60.19 She was referred to Dr Rod on 04/07/2019 [id number] Shwetha Medina MD [facility] (Adult Med) [address] [place] [address] 06/30/2020 09:35:17 07/04/2020 11:50:20 Immunization advised 866116220 Z71.9 Screening for malignant neoplasm of breast 237492822 Z12.39 Fibrocysti c disease of breast 80742388 N60.19 She was referred to Dr Rod on 04/07/2019 She has asked to be referred to Dr Govea as she is no longer able to see Dr Rollins . Screening for malignant neoplasm of colon 730441837 Z12.11 General ex amination of patient 985805894 Z00.01 Nicotine dependence 5629 4008 F17.200 Continuous chronic alcoholism 471289737 F10.20 [id number] LUCIA GARLAND [facility] [address] [place] [address] 11/14/2021 11:17:41 11/15/2021 14:27:40 Depression screening 624645640 Z13.31 PHQ 0 Tobacco de pendence syndrome 49396633 F17.200 since age 15smokes 3-4 cigarettes /day, can go up to 3 days w/o smokingres trictive ventilator y defect PFTs 2019, suggestive of interstiti al lung diseaseno inhalersdi scussed smoking cessation, pt is not amendable at this time Screening for malignant neoplasm of breast [id number] Z12.39 due for mammowas following with britany [facility] breast surgery, had L biopsy and L cyst removal [id number] Continuous chronic alcoholism 490897283 F10.20 since age 15drinks rum and pepsi 1-4 drinks per day while relaxing and watching my shows stat es that # of drinks depends on her mooddoes not go out to bars or socially drink except when she goes to the [id number] labs shows elevated alk phos, GGT, ASTpt reports I know my labs will be bad and liver US in the past that was normalpt is not amendable to alcohol cessation or resources at this time Screening for malignant neoplasm of colon 990186349 Z12.11 due for colon cancer screen Adult heal th examination 831077831 Z00.00 routine labs [id number] LUCIA GARLAND [facility] [address] [place] [address] 12/15/2021 11:08:52 12/18/2021 10:34:47 Screening for malignant neoplasm of cervix 624280849 Z12.4 last pap >5 yrs agoPEx- nl, sample taken for papnu swab Gastroesop hageal reflux disease without esophagitis 611773225 K21.9 c/o burning in throat/aci d in mouthtakin g 's omeprazole with improvemen ttrial pantoprazo le Liver enzy mes level above reference range 683344088 R74.8 12/15/21:h as appt with Katelynn Kirkland PA-C GI at [facility] schedule liver US after complete additional imaging of breasts 03/2018: US liver showed hepatic steatosisl abs 2019: AST 101, GGT : alk phos 332, AST 90, GGT 790ordered US liverrefer to hepatology [id number] LUCIA GARLAND [facility] [address] [place] [address] 12/26/2021 13:31:01 12/27/2021 13:20:14 Screening for malignant neoplasm of cervix 842093792 Z12.4 12/26/21:pr evious pap unsatisfac tory for evalrepeat today 12/15/21:l ast pap >5 yrs agoPEx- nl, sample taken for papnu swab Elevated blood-pressure reading without diagnosis of hypertension 752692224 R03.0 BP 150/90pt states she is nervous and is having hot flashesord ered BP cuffadvise d to check BP at home, goal BP <130/80, f/u with BP log in 1 wk 12/15/21:1 44/86 [id number] LUCIA GARLAND [facility] [address] [place] [address] 05/30/2022 12:16:41 05/30/2022 12:54:11 Viral syndrome 465661599 B34.9 all tests negative Allergic rhinitis 766655 04 J30.9 trial zyrtec and cough suppressan t at bedtimewas on singulair in the past Liver enzy mes level above reference range 696129133 R74.8 05/30/22:di d not complete USre-sent 12/15/21:h as appt with Katelynn Kirkland PA-C GI at [facility] schedule liver US after complete additional imaging of breasts 03/2018: US liver showed hepatic steatosisl abs 2019: AST 101, GGT : alk phos 332, AST 90, GGT 790ordered US liverrefer to hepatology Essential hypertension 80037964 I10 BP at home 140s-150s/ 80-90smult iple previous OV with elevated BPBP in office 146/88, 116/78star t losartan 25advised to check BP at home, goal BP <130/80, f/u with BP log in 1 wk [id number] LUCIA GARLAND [facility] [address] [place] [address] 08/07/2022 11:53:08 08/07/2022 12:27:46 Mammography abnormal 491596580 R92.8 biopsy L breast 02/2022: biopsies to L breast normal, fibrocysti c breast tissue, negative for in situ or invasive carcinomap er patient: told her to have f/u for 6 mo USordered US L breast Essential hypertension 76563250 I10 08/07/22:BP today 128/80BP at home 110-120/70 sc/w losartan 25 05/30/22:BP at home 140s-150s/ 80-90smult iple previous OV with elevated BPBP in office 146/88, 116/78star t losartan 25advised to check BP at home, goal BP <130/80, f/u with BP log in 1 wk Depression screening 171 214663 Z13.31 PHQ 3 Liver enzy mes level above reference range 039553542 R74.8 08/07/22:US liver showed diffuse fatty liverpt did not go to GI apptdeclin es referral at this time 05/30/22:di d not complete USre-sent 12/15/21:h as appt with Katelynn Kirkland PA-C GI at [facility] schedule liver US after complete additional imaging of breasts 03/2018: US liver showed hepatic steatosisl abs 2019: AST 101, GGT : alk phos 332, AST 90, GGT 790ordered US liverrefer to hepatology [id number] LUCIA GARLAND [facility] [address] [place] [address] 10/24/2022 11:09:13 10/24/2022 11:57:05 Depression screening 299684986 Z13.31 PHQ 0 Pain of bi lateral hands 8349445861 5909050 M79.641 years tin gling and throbbing pain, worse in the morninguna ble to extend R index and R pinky fingerno injuryPEx- limited ROM R hand- unable to fully extend R index and R pinky fingerXR to r/o OArefer to hand surgery Overweight 259801356 E66 .3 discussed increasing exercise and healthier food options, high protein, low fat dietdue for routine labs Trigger fi nger of right hand 1560267131 1768849 M65.30 R pinky fingerrefe r to hand surgery Gastroesop hageal reflux disease without esophagitis 756570403 K21.9 10/24/22:rel ief with pantoprazo lewill refill 12/15/21:c /o burning in throat/aci d in mouthtakin g 's omeprazole with improvemen ttrial pantoprazo le Pain of ri ght knee joint 9055958507 91919 M25.561 x6 moacross middle of her kneeachy, occurs intermitte ntlyno injuryPEx- FROM R knee jointXR R kneerec'd tylenol PRN for pain Screening for malignant neoplasm of breast 867611436 Z12.39 due for mammopt had L breast biopsy and repeated US last year, benign findingsmo m had breast issues, at age 63 Smoker 66126633 F17.200 02/21 ppddecline s NRT at this timestart baby ASA [id number] LUCIA GARLAND [facility] [address] [place] [address] 11/12/2022 10:09:29 11/12/2022 10:33:35 Hyperlipidemia 16948880 E78.5 due to LDL 180 and smokerstar t ator 20, advised of ADR Spinal robbin nosis of lumbar region 13307323 M48.061 04/2019: lumbar laminectom y, L4-L5c/o worsening LBP x3 monthstigh tness in lower back that moves into buttocks and front of legsPEx- nlrequesti ng neuro referralne ed UTD imaging Liver enzy mes level above reference range 426711210 R74.8 11/12/22:re fused GI referralGG T 599, AST 107 08/07/22:US liver showed diffuse fatty liverpt did not go to GI apptdeclin es referral at this time 05/30/22:di d not complete USre-sent 12/15/21:h as appt with Katelynn Kirkland PA-C GI at [facility] schedule liver US after complete additional imaging of breasts 03/2018: US liver showed hepatic steatosisl abs 2019: AST 101, GGT : alk phos 332, AST 90, GGT 790ordered US liverrefer to hepatology Depression screening 171 653851 Z13.31 PHQ 0 [id number] LUCIA GARLAND [facility] [address] [place] [address] 02/15/2023 12:39:24 02/20/2023 10:49:42 Fracture of multiple ribs 8025158 S22.41XA fell at home and landed on L side 4 days agowent to ED, told she injured her ribsXR- possible Left 7th, 8th, and 9th lateral rib fractures s/p fallPEx- moderately TTP L ribs, mild edema and ecchymosis to L flankreque sting refill of pain meds, will send for 1 wktrial lidocaine patches Spinal robbin nosis of lumbar region 20351798 M48.061 02/15/23:M RI lumbar spine 02/02/23- mild [...] UTD imaging Dupuytren' s contracture of finger 346840694 M72.0 R pinkyhas surgery scheduled in 1 mo Depression screening 171 933543 Z13.31 PHQ 0 [id number] LUCIA GARLAND [facility] [address] [place] [address] 03/22/2023 11:41:29 03/22/2023 16:58:30 Fracture of multiple ribs 6038237 S22.41XA 03/22/23: pain has improved, no longer [...] patches Spinal robbin nosis of lumbar region 71468621 M48.061 03/22/23: sees neurosurge ry on 04/01/23com [...] referralne ed UTD imaging Depression screening 171 009462 Z13.31 PHQ 0 Essential hypertension 04126710 I10 BP 145/81stat es that she is in pain today from back/ribs and anxious about knot in her breast Breast lump 90763466 N63 .0 concerned about lump to medial aspect of L breast that is new to her02/2022 biopsy L breast benign, tissue marker placed08/07 22 US L breast showing prominent ducts that were noted from prior, no concerning [id number] /2023 mammogram nlwill repeat US L breast [id number] LUCIA GARLAND [facility] [address] [place] [address] 11/01/2023 10:11:12 11/07/2023 13:00:22 Long-term drug therapy 511816163 Z79.899 routine labsencour aged pt to take atorvastat in daily Tobacco de pendence syndrome 79339141 F17.200 11/01/23: unchanged 10/2021:sin ce age 15smokes 3-4 cigarettes /day, can go up to 3 days w/o smokingres trictive ventilator y defect PFTs 2018, suggestive of interstiti al lung diseaseno inhalersdi scussed smoking cessation, pt is not amendable at this time Continuous chronic alcoholism 602994631 F10.20 11/01/23: unchanged 10/2021: since age 15drinks rum and pepsi 1-4 drinks per day while relaxing and watching my shows stat es that # of drinks depends on her mooddoes not go out to bars or socially drink except when she goes to the [id number] labs shows elevated alk phos, GGT, ASTpt reports I know my labs will be bad and liver US in the past that was normalpt is not amendable to alcohol cessation or resources at this time Osteopenia 201909376 M85 .80 found on DEXA t's employment law attorney office told her to mention that periodical ly off and on she has to use a walker due to paindoes not have DME, has walker at home, uses PRN 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 Boston OV [...] has F/u next month Depression screening 171 257166 Z13.31 PHQ 0 Essential hypertension 84738108 I10 BP 137/78c/w losartan 25 Overweight 345342983 E66 .3 discussed increasing exercise and healthier food options, high protein, low fat dietdue for routine labs [id number] Gina Mcdonald MA [facility] [address] [place] [address] 12/25/2023 11:24:34 12/25/2023 14:59:35 Long-term drug therapy 141599950 Z79.899 routine labsencour aged pt to take atorvastat in daily [id number] LUCIA GARLAND [facility] [address] [place] [address] 05/05/2024 10:06:35 05/05/2024 10:48:09 Continuous chronic alcoholism 877198590 F10.20 05/05/24: unchanged 11/01/23: unchanged 10/2021: since age 15drinks rum and pepsi 1-4 drinks per day while relaxing and watching my shows stat es that # of drinks depends on her mooddoes not go out to bars or socially drink except when she goes to the [id number] labs shows elevated alk phos, GGT, ASTpt reports I know my labs will be bad and liver US in the past that was normalpt is not amendable to alcohol cessation or resources at this time Essential hypertension 90647285 I10 BP 137/82on losartan 25 Osteopenia 432428424 M85 .80 05/05/24: on calcium and Vit D3 12/2023: found on DEXA t's employment law attorney office told her to mention that periodical ly off and on she has to use a walker due to paindoes not have DME, has walker at home, uses PRN Hypokalemia 77652669 E87 .6 3.2 on 12/2023 labstaking 40 mEq of potassiumr e-check CMP today, most likely due to alcohol use 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 Boston OV 06/20/2023- [...] tamoxifen 07/2023. Pt has F/u next month Liver enzy mes level above reference range 496587829 R74.8 05/05/24: did not go to GI due to [facility] referralse nt to [place] [facility] 01/08/24: GGT 2164, refer to GI 11/12/22:re fused GI referralGG T 599, AST 107 08/07/22:US liver showed diffuse fatty liverpt did not go to GI apptdeclin es referral at this time 05/30/22:di d not complete USre-sent 12/15/21:h as appt with Katelynn Kirkland PA-C GI at [facility] schedule liver US after complete additional imaging of breasts 03/2018: US liver showed hepatic steatosisl abs 2019: AST 101, GGT : alk phos 332, AST 90, GGT 790ordered US liverrefer to hepatology Smoker 50493177 F17.200 05/05/24: 1/4 ppd 11/01/23: unchanged 10/2021:sin ce age 15smokes 3-4 cigarettes /day, can go up to 3 days w/o smokingres trictive ventilator y defect PFTs 2019, suggestive of interstiti al lung diseaseno inhalersdi scussed smoking cessation, pt is not amendable at this time Gastroesop hageal reflux disease without esophagitis 507925283 K21.9 05/05/24: c/o acid reflux every morning, attributes to Losartanre c'd to take famotidine before bed to provide relief in the morning 10/24/22:rel ief with pantoprazo lewill refill 12/15/21:c /o burning in throat/aci d in mouthtakin g 's omeprazole with improvemen ttrial pantoprazo le Depression screening 171 373173 Z13.31 PHQ 0 Health Concerns Section Related Observation LastModified by Organization Detai ls LastModified Time None Recorded Concern Status LastModified by Organization Details LastModified Time None Recorded Advance Directives Directive N: Payers Encounter Date Sequence Insurance Name Policy Number Policy Zuluaga Covered Member ID Zuluaga Member ID Guarantor Name 02/15/2023 1 [facility] ON OR AFTER 08/18/20 (MEDICAID REPLACEMENT - HMO) Tori Eddy [id number] Tori Eddy 03/22/2023 1 [facility] ON OR AFTER 08/18/20 (MEDICAID REPLACEMENT - HMO) Tori Eddy [id number] Tori Eddy 11/01/2023 1 [facility] ON OR AFTER 08/18/20 (MEDICAID REPLACEMENT - HMO) Tori Eddy [id number] Tori Eddy 12/25/2023 1 [facility] ON OR AFTER 08/18/20 (MEDICAID REPLACEMENT - HMO) Tori Eddy [id number] Tori Eddy 05/05/2024 1 [place] Tori Eddy [id number] Tori Eddy Notes Date Note Type Note Provider Name and Address Organization Details Recorded Time 02/15/2023 text/html Pt presents with L sided [...] refill of pain medication. LUCIA GARLAND Attn: Accounting,[address] [facility], [place], [address], [facility] 02/19/2023 18:13:50 03/22/2023 text/html Pt presents for 1 mo f/u and med refills. Reports that her rib pain has improved, she is no longer using walker and able to sleep laying flat in her bed. LUCIA GARLAND Attn: Accounting,[address] [facility], [place], [address], [facility] 03/22/2023 15:23:41 11/01/2023 text/html Pt presents for [...] scan that showed osteopenia. LUCIA GARLAND Attn: Accounting,[address] [facility], [place], [address], [facility] 11/05/2023 14:59:18 05/05/2024 text/html Pt presents for GI referral. States that she recently changed insurance to Medicare and is requesting new GI referral. C/o heart burn every morning around 4 AM after she takes her losartan and famotidine. LUCIA GARLAND Attn: Accounting,[address] [facility], [place], [address], [facility] 05/05/2024 21:27:23 OBGyn Episode No OBEpisode recorded.
--- OUTSIDE RECORDS SUMMARY | 2024-06-11 10:44 | XMS_ITS | Clinical Summary ---
Author Organization [facility] Address [address] [place] [address] Care Team Providers Care Public Relations Sales Marketing Name Role Phone Shwetha Medina MD Primary Care Provider [phone] Allergies Active Allergy Reactions Criticality Noted Date Comments Clindamycin Hives High 01/01/2018 Medications cetirizine (ZyrTEC) 10 mg tablet Take 10 mg by mouth daily in the morning. Active famotidine (PEPCID) 20 mg tablet 03/31/2023 Active aspirin (ECOTRIN EC) 81 mg Tablet, [...] mg) by mouth daily. 90 Tablet 2 03/13/2024 Active Active Problems Problem Noted Date Diagnosed [...] Encounters Date Type Department Care Team Description 05/06/2024 External Device Data [facility]CTION Provider, Abstract 04/28/2024 External Device Data [facility] Provider, Abstract 04/28/2024 External Device Data [facility] Provider, Abstract 04/25/2024 External Device Data [facility] Provider, Abstract 04/24/2024 External Device Data [facility] Provider, Abstract 04/21/2024 External Device Data [facility] Provider, Abstract 04/07/2024 External Device Data [facility] Provider, Abstract 03/24/2024 External Device Data [facility] Provider, Abstract 03/13/2024 11:00 AM DOOR MAKER Office Visit [facility] Oncology and Hematology - [place] [address] [address] Brian Boston MD Chronic anemia (Primary Dx) from Last 3 Months Family History Medical [...] on file Legal Sex Female 5:26 PM DOOR MAKER Gender Identity Not on file Sexual Orientation Not on file Last Filed Vital Signs Vital Sign Reading Time Taken Comments Blood Pressure 123/80 03/13/2024 10:40 AM DOOR MAKER Pulse 97 03/13/2024 10:40 AM DOOR MAKER Temperature 36.7 C (98.1 F) 03/13/2024 10:40 AM DOOR MAKER Respiratory Rate 17 03/13/2024 10:40 AM DOOR MAKER Oxygen Saturation 95% 03/13/2024 10:40 AM DOOR MAKER Inhaled Oxygen Concentration - - Weight 73 kg (161 lb) 03/13/2024 10:40 AM DOOR MAKER Height 160 cm (5' 3 ) 06/20/2023 8:55 AM CDT Body Mass Index 28.52 06/20/2023 8:55 AM CDT Plan of Treatment Upcoming Encounters Date Type Department Care Team (Late st Contact Info) Description 09/11/2024 10:15 AM CDT Office Visit [facility] Oncology and Hematology - [place] [address] [facility] [address] [place] [address] Brian Boston MD [address] [facility] [address] [place] [address] Health Maintenance Due Date Last Done Comments Pre-Diabetes and Diabetes Screening 1970 HEPATITIS B VACCINES (1 of 3 - 19+ 3-dose series) 1989 HPV/Cotest (21-29) 09/05/1991 CERVICAL CANCER SCREENING 2000 HPV/Cotest (30-65) 2000 PAP SMEAR 2000 COLORECTAL SCREENING 09/05/2015 Colorectal Cancer Screening 09/05/2015 FIT-DNA Q 3 years 09/05/2015 FIT/FOBT Q 1 year 09/05/2015 Flex Sig/CT Colonography Q 5 years 09/05/2015 ZOSTER VACCINE (1 of 2) 2020 INFLUENZA VACCINE (#1) 2023 BREAST CANCER SCREENING 12/03/2024 12/04/19 24, 03/27/2019, 2018, Additional history exists DTAP/TDAP/TD VACCINES (2 - T d or Tdap) 02/18/2025 02/18/2015 Procedures Procedure Name Priority Date/Time Associated Diagnosis Comments MAMMO BILAT DIAGNOSTIC Routine 12/04/2023 1:51 PM CDT from Last 3 Months or Most Recently Relevant to Health Maintenance Results * MAMMO BILAT DIAGNOSTIC (12/04/2023 1:51 PM CDT) Anatomical Region Laterality Modality Breast Bilateral Mammography Brian Boston MD MAMMO ORDERABLES Final Result from Last 3 Months or Most Recently Relevant to Health Maintenance Insurance MEDICARE PART A [place]ID [place] Member Subscriber Plan / Payer ( fective 2023-Present) Name:Tori Eddy Relation to Subscriber:Self Name:Tori Eddy Payer ID:Not on file Group ID:Not on file Type:Medicaid Address: [place] [address] MEDICARE PART A AND B [place] Care Teams Public Relations Sales Marketing Relationship Specialty Start Date End Date Shwetha Medina MD [address] [place] [phone] PCP - General Internal Medicine 01/01/18
--- OUTSIDE RECORDS SUMMARY | 2024-06-11 10:44 | XMS_ITS | Clinical Summary ---
Author Organization [facility] Address [address] [facility] [place] [address] Care Team Providers Care Television Servicer Name Role Phone Radha Griffiths PA-C Primary Care Provider [phone] [facility],non-owned Affiliates and Associated Physician Practices is amultiple site organization consisting of ambulatory clinics and hospital sitesin [place] and [place]. This disclosure is being madepursuant to the Care Everywhere program and may not contain all information available regarding this patient. Last updated 17.[facility] Allergies Active Allergy Reactions Criticality Noted Date Comments Clindamycin Other High 01/01/2018 Medications * Be aware that medications may not be up to date on this document. Alwaysverify current medications with the patient. EQ Aspirin Adult Low Dose 81 MG [...] at Not on file Legal Sex Female 10:58 AM CUSTOMER RELATIONS REPRESENTATIVE Gender Identity Not on file Sexual Orientation Not on file Last Filed Vital Signs Vital Sign Reading Time Taken Comments Blood Pressure 161/93 04/01/2023 8:24 AM CUSTOMER RELATIONS REPRESENTATIVE Pulse 91 04/01/2023 8:24 AM CUSTOMER RELATIONS REPRESENTATIVE Temperature 36.9 C (98.4 F) 01/07/2023 8:33 AM CUSTOMER RELATIONS REPRESENTATIVE Respiratory Rate 18 01/07/2023 8:33 AM CUSTOMER RELATIONS REPRESENTATIVE Oxygen Saturation 96% 04/01/2023 8:24 AM CUSTOMER RELATIONS REPRESENTATIVE Inhaled Oxygen Concentration - - Weight 72.6 kg (160 lb) 04/01/2023 8:24 AM CUSTOMER RELATIONS REPRESENTATIVE Height 160 cm (5' 3 ) 04/01/2023 8:24 AM CUSTOMER RELATIONS REPRESENTATIVE Body Mass Index 28.34 04/01/2023 8:24 AM CUSTOMER RELATIONS REPRESENTATIVE Plan of Treatment Health Maintenance Due Date Last Done Comments COLON MONITORING 1970 COLONOSCOPY - COLON CA SCREENING 1970 CT COLONOGRAPHY - COLON CA SCREENING 1970 FIT - COLON CA SCREENING 1970 FLEX SIG - COLON CA SCREENING 1970 PAP SMEAR 1970 HIV SCREENING 1985 HEPATITIS C SCREENING 08/30/1988 DTAP/TDAP/TD VACCINES (1 - Tdap) 1989 HEPATITIS B VACCINE (1 of 3 - 19+ 3-dose series) 1989 PNEUMOCOCCAL VACCINE 50+ (1 of 2 - PCV) 1989 ZOSTER VACCINE (1 of 2) 2020 MAMMOGRAM 03/27/2021 03/27/2019, 12/25/2017, 12/13/2017 SCREENING FOR DIABETES 01/07/2023 COVID-19 VACCINE (1 - 2023-2 5 season) 2023 DEPRESSION SCREENING 02/19/2024 INFLUENZA VACCINE (Season Ended) 2024 COLOGUARD (AGES 45-75) - COL ON CA SCREENING 12/07/2024 12/07/2021 Colorectal Cancer Screening 12/07/2024 HIB VACCINE Aged Out No longer eligi ble based on patient's age to complete this topic HPV VACCINE Aged Out No longer eligi ble based on patient's age to complete this topic MENINGOCOCCAL (Group B) VACCINE SHARED DECISION-MAKING Aged Out No longer eligible based on patient's age to complete this topic MENINGOCOCCAL GROUPS A/C/Y/W VACCINE Aged Out No longer eligible b ased on patient's age to complete this topic Insurance SELF PAY NO INSURANCE Member Subscriber Plan / Payer (Ef fective for All Dates) Name:Leticia Phipps Member ID:Not on file Relation to Subscriber:Not on file Name:LETICIA PHIPPS Subscriber ID:Not on file (Home) Address: [address] [address] Payer ID:Not on file Group ID:Not on file Type:Self Pay Address: [place], [place] SELF PAY NO INSURANCE Member Subscriber Plan / Payer (Ef fective for All Dates) Name:Leticia Phipps Member ID:Not on file Relation to Subscriber:Not on file Name:LETICIA PHIPPS Subscriber ID:Not on file Address: [address] [address] Payer ID:Not on file Group ID:Not on file Type:Self Pay Address: [place], [place] SELF PAY NO INSURANCE Member Subscriber Plan / Payer (Ef fective for All Dates) Name:Leticia Phipps Member ID:Not on file Relation to Subscriber:Not on file Name:LETICIA PHIPPS Subscriber ID:Not on file Address: [address] [place] [address] Payer ID:Not on file Group ID:Not on file Type:Self Pay Address: [place], [place] SELF PAY NO INSURANCE Member Subscriber Plan / Payer (Ef fective for All Dates) Name:Leticia Phipps Member ID:Not on file Relation to Subscriber:Not on file Name:LETICIA PHIPPS Subscriber ID:Not on file Address: [address] [place] [phone] Payer ID:Not on file Group ID:Not on file Type:Self Pay Address: [place], [place] Care Teams Television Servicer Relationship Specialty Start Date End Date Radha Griffiths PA-C [address] [place] [phone] PCP - General 03/28/22
--- OUTSIDE RECORDS SUMMARY | 2024-06-11 10:45 | XMS_ITS | Clinical Summary ---
Author Organization [facility] Address [address] [place] [address] Phone Care Team Providers Care Box Sorter Name Role Phone TOM CONRAD, ARELI SANTOS MD, ARELI Stephenson Primary Care Provider [phone] Reason for Visit and Chief Complaint The Chief Complaint is: Pt here today for f/u injection. She states that she had about 30-40% relief Problems Includes: Problems addressed during this encounter and other active Problems All Visits Onset Date Resolved Date Provider Condition S tatus Lumbar Spondylosis 12/08/2018 ZAYRA LINARES ANP- Active Last Documented On 9 2:11PM ; [facility] Plan of Treatment Instructions to patient Intervention and counseling on cessation of tobacco use : Patient recieved smoking cessation handout Last Documented On 0 9:34AM ; [facility] Assessments Includes: Assessments from this encounter Findings - Lumbar spondylosis with radiculopathy [M47.26 - Other spondylosis with radiculopathy, lumbar region] - Last Documented On 03/20/2019 10:03AM ; [facility] - Lumbar canal stenosis with neurogenic claudication [M48.062 - Spinal stenosis, lumbar region with neurogenic claudication] - Last Documented On 03/20/2019 10:03AM ; [facility] - Myalgia [M79.18 - Myalgia, other site] - Last Documented On 03/20/2019 10:03AM ; [facility] Instructions Includes: Instructions from this encounter Instructions to patient Intervention and counseling on cessation of tobacco use : Patient recieved smoking cessation handout Last Documented On 0 9:34AM ; [facility] Medical Equipment - Implanted Devices Includes: Current Devices No Medical Equipment Recorded Medications Includes: Medications discussed during this encounter and other current Medications Discontinued / Stopped on this date ZAYRA MEMBRENO on 02/19/2019 Xanax 0.5 MG Oral Tablet Provider: SILVIO MEMBRENO Diagnosis: Last Documented On 0 9:43AM By Jeannine CORTES ; [facility] Xanax 0.5 MG Oral Tablet Provider: ZAYRA CUELLAR Diagnosis: Anxiety disorder , unspecified Last Documented On 0 10:04AM By ZAYRA MEMBRENO ; [facility] José Miguel/Mag 200-100 MG Oral Tablet Provider: Diagnosis: Last Documented On 0 9:44AM By Jeannine CORTES ; [facility] Cyclobenzaprine HCl 10 MG Oral Tablet Pro vider: Diagnosis: Last Documented On 0 9:43AM By Jeannine CORTES ; [facility] Montelukast Sodium 10 MG Oral Tablet Prov ider: Diagnosis: Last Documented On 0 9:43AM By Jeannine CORTES ; [facility] Current Medications (continue as prescribed) Aleve 220 MG Oral Tablet 02/18/2018 Provider: Diagnosis: prn Last Documented On 9 1:08PM By ZAYRA MEMBRENO ; [facility] Medications Administered Includes: Administered Medications from this encounter No Administered Medications Recorded Vital Signs Includes: Vital Signs from this encounter Vital Name 03/20/2019 09:34A Blood Pressure Sitting L 128/76 BP Cuff Size Large Pulse Rate-Sitting (bpm) 76 Respiration Rate (breaths/min) 18 Weight (lb) 160 Pain Level 4 Last Documented: On 03/20/2019 9:43AM ; [facility] Results Includes: Results discussed during [...] 01/26/2019 Last Documented On 0 9:33AM ; [facility] Alcohol 12/08/2018 Last Documented On 0 9:33AM ; [facility] Not using drugs 12/08/2018 Last Documented On 0 9:33AM ; [facility] Single 12/08/2018 Last Documented On 0 9:33AM ; [facility] Tobacco use 12/08/2018 Last Documented On 0 9:33AM ; [facility] Procedures and Surgical History Includes: Procedures from this encounter Procedures Code Diagnosis Performing Provider Service L ocation Service Date education and instructions provided Last Documented On 0 9:57AM ; [facility] intervention and counseling on cessation of tobacco use : Patient recieved smoking cessation handout 4000F Last Documented On 0 9:34AM ; [facility] review of medications documented 1160F Last Documented On 0 9:34AM ; [facility] Medical History Includes: Medical History addressed during this encounter Description Last Updated Reviewed and Unchanged 03/20/2019 Last Documented On 0 10:03AM ; [facility] Family History Includes: Family History addressed [...] deja Last Documented On 0 9:34AM ; [facility] Encounters Encounter Provider Location Date Check-In Time Check-Out Time Diagnosis PAIN MANAGEMENT FOLLOW UP ZAYRA [facility]OS[facility] 03/20/19 20 9:16AM 10:04AM Spondylosis with Radiculopathy Lumbar Region,Myalgia,S breana Stenosis Lumbar with Neurogenic Claudication Insurance Includes: Active Insurance Policies Plan Name Member ID Group # Subscriber Relationship Effect deja Dates 1 - [facility] [id number] LETICIA PHIPPS Self Clinical Notes Includes: Clinical Notes from this encounter No Clinical Notes Recorded
--- OUTSIDE RECORDS SUMMARY | 2024-06-11 10:45 | XMS_ITS | Clinical Summary ---
Author Organization [facility] Address [address] [place] [address] Phone Care Team Providers Care Florist Designer Name Role Phone Shwetha Medina MD Primary [...] Date Smoking Tobacco: Every Day Cigarettes 0.5 36.3 Started: 1988 Smokeless Tobacco: Never Alcohol Use Standard Drinks/Week Comments Yes 0 (1 standard drink = 0.6 oz pur e alcohol) daily Comments Unknown Sex and Gender Information Value Date Recorded Sex Assigned at Not on file Legal Sex Female 11:21 AM ELECTROTHERAPIST Gender Identity Not on file Sexual Orientation Not on file Last Filed Vital Signs Vital Sign Reading Time Taken Comments Blood Pressure 136/90 03/21/2018 2:10 PM ELECTROTHERAPIST Pulse 106 03/21/2018 2:10 PM ELECTROTHERAPIST Temperature 37.2 C (99 F) 03/21/2018 2:10 PM ELECTROTHERAPIST Respiratory Rate 18 03/21/2018 2:10 PM ELECTROTHERAPIST Oxygen Saturation 98% 03/21/2018 2:10 PM ELECTROTHERAPIST Inhaled Oxygen Concentration - - Weight 69.5 kg (153 lb 4.8 oz) 03/21/2018 2:10 P M ELECTROTHERAPIST Height 158.8 cm (5' 2.5 ) 03/21/2018 2:10 PM ELECTROTHERAPIST Body Mass Index 27.59 03/21/2018 2:10 PM ELECTROTHERAPIST Plan of Treatment Health Maintenance Due Date Last Done Comments Hepatitis C Virus (HCV) Screening 1970 TdaP Immunization 1970 Hepatitis B Immunization (1 of 3 - 19+ 3-dose series) 1989 Pneumococcal Immunization (5 0+ years) (1 of 2 - PCV) 1989 Colonoscopy 09/05/2015 Colorectal Cancer Screening 09/05/2015 Cologuard 2020 Immunochemical Fecal Occult Blood 2020 Zoster Immunization (1 of 2) 2020 Influenza Immunization (#1) 2023 SARS-COV-2 Immunization ( - season) 2023 Respiratory Syncytial Virus (RSV) Immunization (Adult) (1 - 1-dose 75+ series) 2045 Mammogram Discontinued 12/25/2017 Meningococcal Immunization (ACWY) Aged Out No longer eligible based on patient's age to complete this topic Rotavirus Immunization Aged Out No lo nger eligible based on patient's age to complete this topic Insurance MEDICAID [employer] Care Teams Florist Designer Relationship Specialty Start Date End Date Shwetha Medina MD [address] [place] [address] PCP - General Internal Medicine 03/21/18
--- OUTSIDE RECORDS SUMMARY | 2024-06-11 10:45 | XMS_ITS ---
Care Plan - [facility] Created on: June 11, 2024 LETICIALETICIA Alvarez : 1970 Sex: Female Author Organization [facility] Address [address] [place] [address] Phone Care Team Providers Care Rubber Calender Helper Name Role Phone TOM CONRAD, ARELI SANTOS MD, ARELI Stephenson Primary Care Provider [phone]
--- OUTSIDE RECORDS SUMMARY | 2024-06-11 10:45 | XMS_ITS ---
Author Organization [facility] [[email or web address]] Address [address] [place] [address] Phone Care Team Providers Care Manager Fitness Name Role Phone TOM CONRAD, ARELI Granados Unavailable TOM CONRAD, ARELI Stephenson Primary Care Provider [phone] Problems Includes: Active, inactive, and resolved Problems All Visits Onset Date Resolved Date Provider Condition S tatus Lumbar Spondylosis 12/08/2018 ZAYRA MEMBRENO Active Last Documented On 9 2:11PM ; [facility] Plan of Treatment Referrals To Diagnosis Pain Management [address] [address] - Other spondylosis with radiculopathy, lumbar region Note: consent for bilateral L4-5 transforaminal epidural Last Documented On 0 2:34PM ; [facility] Pain Management [address] [address] - Other spondylosis with radiculopathy, lumbar region Note: consent for bilateral L4-5 transforaminal epidural Last Documented On 0 8:07AM ; [facility] Instructions to patient Intervention and counseling on cessation of tobacco use : Patient recieved smoking cessation handout Last Documented On 0 9:34AM ; [facility] Intervention and counseling on cessation of tobacco use : Patient recieved smoking cessation handout Last Documented On 9 9:46AM ; [facility] Assessments Includes: Assessments for all patient encounters Findings Encounter Date Lumbar canal stenosis with n eurogenic claudication PAIN MANAGEMENT FOLLOW UP with ZAYRA MEMBRENO 03/20/2019 Last Documented On 0 10:03AM ; [facility] Lumbar spondylosis with radiculopathy PA IN MANAGEMENT FOLLOW UP with ZAYRA L VIJAY ANP-BC 03/20/2019 Last Documented On 0 10:03AM ; [facility] Myalgia PAIN MANAGEMENT FOLLOW UP with T BATOOL L VIJAY ANP-BC 03/20/2019 Last Documented On 0 10:03AM ; [facility] Lumbar spondylosis with radiculopathy PA IN MANAGEMENT FOLLOW UP with ZAYRA L VIJAY ANP- 01/26/2019 Last Documented On 9 9:21AM ; [facility] Lumbosacral spinal stenosis PAIN MANAGEM ENT FOLLOW UP with ZAYRA L VIJAY [facility]- 01/26/2019 Last Documented On 9 9:21AM ; [facility] Myalgia PAIN MANAGEMENT FOLLOW UP with T BATOOL L VIJAY [facility]- 01/26/2019 Last Documented On 9 9:21AM ; [facility] Lumbar spondylosis with radiculopathy PA IN MANAGEMENT NEW CONSULT with ZAYRA L VIJAY [facility]- 12/08/2018 Last Documented On 9 1:09PM ; [facility] Lumbosacral spinal stenosis PAIN MANAGEM ENT NEW CONSULT with ZAYRA L VIJAY [facility]- 12/08/2018 Last Documented On 9 1:09PM ; [facility] Myalgia PAIN MANAGEMENT NEW CONSULT with ZAYRA L VIJAY [facility]- 12/08/2018 Last Documented On 9 1:09PM ; [facility] [[email or web address]] Instructions Includes: Instructions for all patient encounters Instructions to patient Intervention and counseling on cessation of tobacco use : Patient recieved smoking cessation handout Last Documented On 0 9:34AM ; [facility] Intervention and counseling on cessation of tobacco use : Patient recieved smoking cessation handout Last Documented On 9 9:46AM ; [facility] Medical Equipment - Implanted Devices Includes: Current and historical Devices No Medical Equipment Recorded Medications Includes: Current and historical Medications Current Medications (continue as prescribed) Aleve 220 MG Oral Tablet 02/18/2018 Provider: Diagnosis: prn Last Documented On 9 1:08PM By ZAYRA MEMBRENO ; [facility] Past Medications on file Xanax 0.5 MG Oral Tablet 02/19/2019 - 03/20/2019 Provi ramos: ZAYRA MEMBRENO Diagnosis: as directed 1 po 1 hour prio r to procedure, 1 po 30 minutes prior to procedure and 1 immediately prior prn Last Documented On 0 9:43AM By Jeannine CORTES ; [facility] Xanax 0.5 MG Oral Tablet 02/12/2019 - 03/20/2019 Provider: ZAYRA MEMBRENO Diagnosis: Anxiety disorder , unspecified as directed 1 po 1 hour prio r to procedure, 1 po 30 minutes prior to procedure and 1 immediately prior prn Last Documented On 0 10:04AM By ZAYRA MEMBRENO ; [facility] Xanax 0.5 MG Oral Tablet 02/02/2019 - 02/12/2019 Provider: ZAYRA MEMBRENO Diagnosis: Anxiety disorder , unspecified as directed 1 po 1 hour prio r to procedure, 1 po 30 minutes prior to procedure and 1 immediately prior prn Last Documented On 9 4:19PM By ZAYRA MEMBRENO ; [facility] Xanax 0.5 MG Oral Tablet 01/01/2019 - 01/26/2019 Provider: ZAYRA MEMBRENO Diagnosis: Anxiety disorder , unspecified as directed 1 po 1 hour prio r to procedure, 1 po 30 minutes prior to procedure and 1 immediately prior prn Last Documented On 9 9:21AM By ZAYRA MEMBRENO ; [facility] José Miguel/Mag 200-100 MG Oral Tablet 12/08/2018 - 03/20/2019 Provider: Diagnosis: Last Documented On 0 9:44AM By Jeannine CORTES ; [facility] Cyclobenzaprine HCl 10 MG Oral Tablet 12/08/2018 - Provider: Diagnosis: Last Documented On 0 9:43AM By Jeannine CORTES ; [facility] Montelukast Sodium 10 MG Oral Tablet 12/08/2018 - 02/20 Provider: Diagnosis: Last Documented On 0 9:43AM By Jeannine CORTES ; [facility] Medications Administered Includes: Administered Medications in patient's chart No Administered Medications Recorded Results Includes: Results from 06/12/2023 through 06/11/2024 No Results Recorded For Specified Dates History of Present Illness History of Present Illness not supported for this document type No History of Present Illness Recorded Social History Description Last Updated Smoking status : Current everyday smoker 01/26/2019 Last Documented On 9 9:21AM ; [facility] Alcohol 12/08/2018 Last Documented On 9 1:09PM ; [facility] Not using drugs 12/08/2018 Last Documented On 9 1:09PM ; [facility] Single 12/08/2018 Last Documented On 9 1:09PM ; [facility] Tobacco use 12/08/2018 Last Documented On 9 1:09PM ; [facility] Medical History Includes: Medical History in patient's chart Description Last Updated Reviewed and Unchanged 03/20/2019 Last Documented On 0 10:03AM ; [facility] 1 miscarriage(s) 12/08/2018 Last Documented On 9 1:09PM ; [facility] Previously 4 time(s) 12/08/2018 Last Documented On 9 1:09PM ; [facility] No history of arthritis 12/08/2018 Last Documented On 9 1:09PM ; [facility] No history of cancer 12/08/2018 Last Documented On 9 1:09PM ; [facility] No history of chronic obstructive pulmon rafal disease 12/08/2018 Last Documented On 9 1:09PM ; [facility] No history of convulsive disorder 2018 Last Documented On 9 1:09PM ; [facility] No history of diabetes mellitus 12/09/19 19 Last Documented On 9 1:09PM ; [facility] No history of hypertension 12/08/2018 Last Documented On 9 1:09PM ; [facility] No history of sexually transmitted disea se 12/08/2018 Last Documented On 9 1:09PM ; [facility] No history of stroke syndrome 12/08/2018 Last Documented On 9 1:09PM ; [facility] No reported cardiovascular symptoms 11/19 Last Documented On 9 1:09PM ; [facility] No reported easy bleeding 12/08/2018 Last Documented On 9 1:09PM ; [facility] No reported recurrent infections 019 Last Documented On 9 1:09PM ; [facility] Family History Includes: Family History in patient's chart Description Last Updated Father 71 years old COPD 12/08/2018 Last Documented On 9 1:09PM ; [facility] Mother CANCER 12/08/2018 Last Documented On 9 1:09PM ; [facility] Review of Systems Review of Systems not [...] deja Last Documented On 0 9:34AM ; [facility] Insurance Includes: Active Insurance Policies Plan Name Member ID Group # Subscriber Relationship Effect deja Dates - [facility] [id number] LETICIA PHIPPS Self Clinical Notes Includes: Signed Clinical Notes starting from 03/09/2022 No Clinical Notes Recorded
--- OUTSIDE RECORDS SUMMARY | 2024-06-11 10:45 | XMS_ITS | Clinical Summary ---
Author Organization [facility] Address [address] [place] [address] Phone Care Team Providers Care Workplace Rehabilitation Officer Name Role Phone TOM CONRAD, ARELI SANTOS MD, ARELI Stephenson Primary Care Provider [phone] Reason for Visit and Chief Complaint * PHONE CALL Problems Includes: Problems addressed during this encounter and other active Problems All Visits Onset Date Resolved Date Provider Condition S tatus Lumbar Spondylosis 12/08/2018 ZAYRA MEMBRENO Active Last Documented On 9 2:11PM ; [facility] Plan of Treatment No Plan of Treatment [...] procedure and 1 immediately prior prn Pharmacy: [facility] [address], [address] - Last Documented On 9 9:21AM By ZAYRA MEMBRENO ; [facility] Current Medications (continue as prescribed) Aleve 220 MG Oral Tablet 02/18/2018 Provider: Diagnosis: prn Last Documented On 9 1:08PM By ZAYRA MEMBRENO ; [facility] Medications Administered Includes: Administered Medications from this encounter No Administered Medications Recorded Results Includes: Results discussed during this encounter No Results Recorded For Specified Dates History of Present Illness Includes: History of Present Illness from this encounter No History of Present Illness Recorded Social History Description Last Updated Alcohol 12/08/2018 Last Documented On 9 10:23AM ; [facility] Not using drugs 12/08/2018 Last Documented On 9 10:23AM ; [facility] Single 12/08/2018 Last Documented On 9 10:23AM ; [facility] Tobacco use 12/08/2018 Last Documented On 9 10:23AM ; [facility] Smoking Status Unknown Medical History Includes: Medical [...] deja Last Documented On 0 9:34AM ; [facility] Encounters Encounter Provider Location Date Check-In Time Check-Out Time Diagnosis * PHONE CALL ZAYRA MEMBRENO 01/01/2019 10:23AM 11:59PM Insurance Includes: Active Insurance Policies Plan Name Member ID Group # Subscriber Relationship Effect deja Dates - [facility] [id number] LETICIA PHIPPS Self Clinical Notes Includes: Clinical Notes from this encounter No Clinical Notes Recorded
--- OUTSIDE RECORDS SUMMARY | 2024-06-11 10:45 | XMS_ITS | Clinical Summary ---
Author Organization [facility] Address [address] [place] [address] Phone Care Team Providers Care Technical Applications Scientist Name Role Phone TOM CONRAD, ARELI SANTOS MD, ARELI Stephenson Primary Care Provider [phone] Reason for Visit and Chief Complaint * PHONE CALL Problems Includes: Problems addressed during this encounter and other active Problems All Visits Onset Date Resolved Date Provider Condition S tatus Lumbar Spondylosis 12/08/2018 ZAYRA MEMBRENO Active Last Documented On 9 2:11PM ; [facility] Plan of Treatment No Plan [...] procedure and 1 immediately prior prn Pharmacy: [facility] [address], [address] - Last Documented On 0 9:43AM By Jeannine CORTES ; [facility] Current Medications (continue as prescribed) Aleve 220 MG Oral Tablet 02/18/2018 Provider: Diagnosis: prn Last Documented On 9 1:08PM By ZAYRA MEMBRENO ; [facility] Medications Administered Includes: Administered Medications from this encounter No Administered Medications Recorded Results Includes: Results discussed during this encounter No Results Recorded For Specified Dates History of Present Illness Includes: History of Present Illness from this encounter No History of Present Illness Recorded Social History Description Last Updated Smoking status : Current everyday smoker 01/26/2019 Last Documented On 0 11:33AM ; [facility] Alcohol 12/08/2018 Last Documented On 0 11:33AM ; [facility] Not using drugs 12/08/2018 Last Documented On 0 11:33AM ; [facility] Single 12/08/2018 Last Documented On 0 11:33AM ; [facility] Tobacco use 12/08/2018 Last Documented On 0 11:33AM ; [facility] Medical History Includes: Medical History addressed [...] deja Last Documented On 0 9:34AM ; [facility] Encounters Encounter Provider Location Date Check-In Time Check-Out Time Diagnosis * PHONE CALL ZAYRA CISNEROS-HARRY 02/19/2019 11:33AM 11:59PM Insurance Includes: Active Insurance Policies Plan Name Member ID Group # Subscriber Relationship Effect deja Dates - [id number] [id number] LETICIA PHIPPS Self Clinical Notes Includes: Clinical Notes from this encounter No Clinical Notes Recorded
--- OUTSIDE RECORDS SUMMARY | 2024-06-11 10:45 | XMS_ITS | Clinical Summary ---
Author Organization [facility] Address [address] [place] [address] Phone Care Team Providers Care White Sugar Pan Tank Operator Name Role Phone TOM CONRAD, ARELI SANTOS MD, ARELI Stephenson Primary Care Provider [phone] Reason for Visit and Chief Complaint * PHONE CALL Problems Includes: Problems addressed during this encounter and other active Problems All Visits Onset Date Resolved Date Provider Condition S tatus Lumbar Spondylosis 12/08/2018 ZAYRA MEMBRENO Active Last Documented On 9 2:11PM ; [facility] Plan of [...] procedure and 1 immediately prior prn Pharmacy: [facility] [address], [address] - Last Documented On 0 10:04AM By ZAYRA MEMBRENO ; [facility] Current Medications (continue as prescribed) Aleve 220 MG Oral Tablet 02/18/2018 Provider: Diagnosis: prn Last Documented On 9 1:08PM By ZAYRA MEMBRENO ; [facility] Medications Administered Includes: [...] 01/26/2019 Last Documented On 9 4:00PM ; [facility] Alcohol 12/08/2018 Last Documented On 9 4:00PM ; [facility] Not using drugs 12/08/2018 Last Documented On 9 4:00PM ; [facility] Single 12/08/2018 Last Documented On 9 4:00PM ; [facility] Tobacco use 12/08/2018 Last Documented On 9 4:00PM ; [facility] Medical History Includes: Medical History [...] deja Last Documented On 0 9:34AM ; [facility] Encounters Encounter Provider Location Date Check-In Time Check-Out Time Diagnosis * PHONE CALL ZAYRA CISNEROS-HARRY 02/12/2019 4:00PM 11:59PM Insurance Includes: Active Insurance Policies Plan Name Member ID Group # Subscriber Relationship Effect deja Dates - [facility] [id number] LETICIA PHIPPS Self Clinical Notes Includes: Clinical Notes from this encounter No Clinical Notes Recorded
--- OUTSIDE RECORDS SUMMARY | 2024-06-11 10:45 | XMS_ITS | Clinical Summary ---
Author Organization [facility] Address [address] [place] [address] Phone Care Team Providers Care Head Of Design Name Role Phone TOM CONRAD, ARELI SANTOS MD, ARELI Stephenson Primary Care Provider [phone] Reason for Visit and Chief Complaint The Chief Complaint is: Pt here today for f/u injection. She stated that the first three days she had about 50% relief Problems Includes: Problems addressed during this encounter and other active Problems All Visits Onset Date Resolved Date Provider Condition S tatus Lumbar Spondylosis 12/08/2018 ZAYRA LINARES ANP- Active Last Documented On 9 2:11PM ; [facility] Plan of Treatment Referrals To Diagnosis Pain Management [facility] - [address] [place] [address] - Other spondylosis with radiculopathy, lumbar region Note: consent for bilateral L4-5 transforaminal epidural Last Documented On 0 8:07AM ; [facility] Instructions to patient Intervention and counseling on cessation of tobacco use : Patient recieved smoking cessation handout Last Documented On 9 9:46AM ; [facility] Assessments Includes: Assessments from this encounter Findings - Lumbar spondylosis with radiculopathy [M47.26 - Other spondylosis with radiculopathy, lumbar region] - Last Documented On 02/02/2019 9:21AM ; [facility] - Lumbosacral spinal stenosis [M48.07 - Spinal stenosis, lumbosacral region] - Last Documented On 02/02/2019 9:21AM ; [facility] - Myalgia [M79.18 - Myalgia, other site] - Last Documented On 02/02/2019 9:21AM ; [facility] Instructions Includes: Instructions from this encounter Instructions to patient Intervention and counseling on cessation of tobacco use : Patient recieved smoking cessation handout Last Documented On 9 9:46AM ; [facility] Medical Equipment - Implanted Devices Includes: Current Devices No Medical Equipment Recorded Medications Includes: Medications discussed during this encounter and other current Medications Current Medications (continue as prescribed) Aleve 220 MG Oral Tablet 02/18/2018 Provider: Diagnosis: prn Last Documented On 9 1:08PM By ZAYRA LINARES [facility]- ; [facility] Medications Administered Includes: Administered Medications from this encounter No Administered Medications Recorded Vital Signs Includes: Vital Signs from this encounter Vital Name 01/26/2019 09:46A Blood Pressure Sitting L 134/74 BP Cuff Size Regular Pulse Rate-Sitting (bpm) 67 Pulse Rhythm Regular Respiration Rate (breaths/min) 18 Weight (lb) .16 Pain Level 0 Last Documented: On 01/26/2019 9:47AM ; [facility] Results Includes: Results discussed during this [...] 01/26/2019 Last Documented On 9 9:21AM ; [facility] Alcohol 12/08/2018 Last Documented On 9 9:43AM ; [facility] Not using drugs 12/08/2018 Last Documented On 9 9:43AM ; [facility] Single 12/08/2018 Last Documented On 9 9:43AM ; [facility] Tobacco use 12/08/2018 Last Documented On 9 9:43AM ; [facility] Procedures and Surgical History Includes: Procedures from this encounter Procedures Code Diagnosis Performing Provider Service L ocation Service Date education and instructions provided Last Documented On 9 9:53AM ; [facility] intervention and counseling on cessation of tobacco use : Patient recieved smoking cessation handout 4000F Last Documented On 9 9:46AM ; [facility] review of medications documented 1160F Last Documented On 9 9:44AM ; [facility] Medical History Includes: Medical History addressed during this encounter Description Last Updated Reviewed and Unchanged 01/26/2019 Last Documented On 9 9:21AM ; [facility] Family History Includes: Family History addressed [...] deja Last Documented On 0 9:34AM ; [facility] Encounters Encounter Provider Location Date Check-In Time Check-Out Time Diagnosis PAIN MANAGEMENT FOLLOW UP ZAYRA LINARES [facility] 01/27/20 19 9:37AM 10:13AM Spondylosis with Radiculopathy Lumbar Region,Spinal Stenosis Lumbosacral,Myal richard Insurance Includes: Active Insurance Policies Plan Name Member ID Group # Subscriber Relationship Effect deja Dates - [facility] [id number] LETICIA PHIPPS Self Clinical Notes Includes: Clinical Notes from this encounter No Clinical Notes Recorded
--- OUTSIDE RECORDS SUMMARY | 2024-06-11 10:46 | XMS_ITS | Referral Summary ---
Author Organization [facility] Address [address] [place] [address] Care Team Providers Care Publications Sales Representative Name Role Phone Radha Griffiths Primary Care Provider [phone] Allergies Active Allergy Reactions Criticality Noted Date [...] 81 10/29/2023 8:50 AM CDT Temperature 36.6 C (97.9 F) 10/29/2023 8:20 AM CDT Respiratory Rate 16 10/29/2023 8:50 AM CDT Oxygen Saturation 95% 10/29/2023 8:50 AM CDT Inhaled Oxygen Concentration - - Weight 73.4 kg (161 lb 12.8 oz) 10/29/2023 6:02 AM CDT Height 160 cm (5' 3 ) 10/29/2023 6:02 AM CDT Body Mass Index 28.66 10/29/2023 6:02 AM CDT Plan of Treatment Not on file Medical Devices Implanted Type Area Beaming Machine Operator Device Identifier Shelf Expiration Date Model / Serial / Lot Cage-Lumbar Spine Cage Back Marker 2 Or 3 Left: Breast Insurance Care Teams Publications Sales Representative Relationship Specialty Start Date End Date Radha Griffiths PA [address] [place] [id number] PCP - General Physician Director Of Institutional Giving 10/24/22
--- OUTSIDE RECORDS SUMMARY | 2024-06-11 10:46 | XMS_ITS | Clinical Summary ---
Author Organization [facility] Address [facility] [place] [address] Care Team Providers Care Solar Sales Representative Name Role Phone Radha Griffiths Primary Care Provider [phone] Allergies Active Allergy Reactions Criticality Noted Date [...] Depression Screening 1970 Hepatitis C Screening 1970 Hepatitis B Screening 1988 Regular Well Visit/Exam 18-64 1988 Pneumococcal vaccine <65 (1 of 2 - PCV) 1989 Zoster Vaccine (1 of 2) 1989 Influenza Vaccine (#1) 2023 Breast Cancer Screening-Mammogram 11/23/2023 023 DTaP/Tdap/Td Vaccine (2 - Td or Tdap) 02/18/202502/2015 Medical Devices Implanted Type Area Haul Truck Driver Device Identifier Shelf Expiration Date Model / Serial / Lot Cage-Lumbar Spine Cage Back Marker 2 Or 3 Left: Breast Insurance [facility] Care Teams Solar Sales Representative Relationship Specialty Start Date End Date Radha Griffiths PA [address] [place] [address] PCP - General Physician Aircraft Engine Cylinder Mechanic 10/24/22
== END 2024-06-11 09:44 | disposition home or self-care (01) ==
PROVIDERS: PCP Physician Assistant; Visit Provider Physician Assistant Surgical
DX: N63.20 Unspecified lump in the left breast, unspecified quadrant (principal); R92.8 Other abnormal and inconclusive findings on diagnostic imaging of breast
CPT/HCPCS: 77049; A9579; C8908

== ENCOUNTER 2024-09-30 10:24 | Outpatient (CLI) | payer MEDICARE, MEDICAID, SELFPAY ==
--- OUTSIDE RECORDS SUMMARY | 2024-09-30 10:40 | XMS_ITS | Clinical Summary ---
Author Organization [facility] Address [address] [place] [address] Care Team Providers Care Android Software Engineer Name Role Phone Radha Griffiths PA-C Primary Care Provider [phone] Source Comments [facility],non-owned Affiliates and Associated Physician Practices is amultiple site organization consisting of ambulatory clinics and hospital sitesin [place], [place], [place] and [place]. This disclosure is being madepursuant to the Care Everywhere program and may not contain all information available regarding this patient. Last updated 17.[facility] Allergies Active Allergy Reactions Criticality Noted Date [...] on file Legal Sex Female 10:58 AM FARM EQUIPMENT OPERATOR Gender Identity Not on file Sexual Orientation Not on file Last Filed Vital Signs Vital Sign Reading Time Taken Comments Blood Pressure 161/93 04/01/2023 8:24 AM FARM EQUIPMENT OPERATOR Pulse 91 04/01/2023 8:24 AM FARM EQUIPMENT OPERATOR Temperature 36.9 C (98.4 F) 01/07/2023 8:33 AM FARM EQUIPMENT OPERATOR Respiratory Rate 18 01/07/2023 8:33 AM FARM EQUIPMENT OPERATOR Oxygen Saturation 96% 04/01/2023 8:24 AM FARM EQUIPMENT OPERATOR Inhaled Oxygen Concentration - - Weight 72.6 kg (160 lb) 04/01/2023 8:24 AM FARM EQUIPMENT OPERATOR Height 160 cm (5' 3) 04/01/2023 8:24 AM FARM EQUIPMENT OPERATOR Body Mass Index 28.34 04/01/2023 8:24 AM FARM EQUIPMENT OPERATOR Plan of Treatment Health Maintenance Due Date Last Done Comments COLON MONITORING 1970 COLONOSCOPY - COLON CA SCREENING 1970 CT COLONOGRAPHY - COLON CA SCREENING 1970 FIT - COLON CA SCREENING 1970 FLEX SIG - COLON CA SCREENING 1970 HIV SCREENING 1985 HEPATITIS C SCREENING 08/30/1988 DTAP/TDAP/TD VACCINES (1 - Tdap) 1989 HEPATITIS B VACCINE (1 of 3 - 19+ 3-dose series) 1989 PNEUMOCOCCAL VACCINE 50+ (1 of 2 - PCV) 1989 PAP SMEAR 09/05/1991 ZOSTER VACCINE (1 of 2) 2020 MAMMOGRAM 03/27/2021 03/27/2019, 12/25/2017, 12/13/2017 SCREENING FOR DIABETES 01/07/2023 COVID-19 VACCINE (1 - 2023-2 5 season) 2023 DEPRESSION SCREENING 02/19/2024 INFLUENZA VACCINE (#1) 2024 COLOGUARD (AGES 45-75) - COL ON [...] Subscriber ID:Not on file (Home) Address: [address] [address] Payer ID:Not on file Group ID:Not on file Type:Self Pay Address: [place], [place] SELF PAY NO INSURANCE Member Subscriber Plan / Payer (Ef fective for All Dates) Name:Leticia Phipps Member ID:Not on file Relation to Subscriber:Not on file Name:LETICIA PHIPPS Subscriber ID:Not on file Address: [address] [address] Payer ID:Not on file Group ID:Not on file Type:Self Pay Address: [place], [place] SELF PAY NO INSURANCE Member Subscriber Plan / Payer (Ef fective for All Dates) Name:Leticia Phipps Member ID:Not on file Relation to Subscriber:Not on file Name:LETICIA PHIPPS Subscriber ID:Not on file Address: [address] [place] [address] Payer ID:Not on file Group ID:Not on file Type:Self Pay Address: [place], [place] SELF PAY NO INSURANCE Member Subscriber Plan / Payer (Ef fective for All Dates) Name:Leticia Phipps Member ID:Not on file Relation to Subscriber:Not on file Name:LETICIA PHIPPS Subscriber ID:Not on file Address: [address] [place] [id number] Payer ID:Not on file Group ID:Not on file Type:Self Pay Address: [place], [place] Care Teams Android Software Engineer Relationship Specialty Start Date End Date Radha Griffiths PA-C [address] [place] [phone] PCP - General 03/28/22
--- OUTSIDE RECORDS SUMMARY | 2024-09-30 10:40 | XMS_ITS | Clinical Summary ---
Author Organization [facility] Address [address] [place] [address] Phone Care Team Providers Care Band Booker Name Role Phone Shwetha Medina MD Primary [...] Date Smoking Tobacco: Every Day Cigarettes 0.5 36.6 Started: 1988 Smokeless Tobacco: Never Alcohol Use Standard Drinks/Week Comments Yes 0 (1 standard drink = 0.6 oz pur e alcohol) daily Comments Unknown Sex and Gender Information Value Date Recorded Sex Assigned at Not on file Legal Sex Female 11:21 AM ASSOCIATE CHIEF NURSE Gender Identity Not on file Sexual Orientation Not on file Last Filed Vital Signs Vital Sign Reading Time Taken Comments Blood Pressure 136/90 03/21/2018 2:10 PM ASSOCIATE CHIEF NURSE Pulse 106 03/21/2018 2:10 PM ASSOCIATE CHIEF NURSE Temperature 37.2 C (99 F) 03/21/2018 2:10 PM ASSOCIATE CHIEF NURSE Respiratory Rate 18 03/21/2018 2:10 PM ASSOCIATE CHIEF NURSE Oxygen Saturation 98% 03/21/2018 2:10 PM ASSOCIATE CHIEF NURSE Inhaled Oxygen Concentration - - Weight 69.5 kg (153 lb 4.8 oz) 03/21/2018 2:10 P M ASSOCIATE CHIEF NURSE Height 158.8 cm (5' 2.5) 03/21/2018 2:10 PM ASSOCIATE CHIEF NURSE Body Mass Index 27.59 03/21/2018 2:10 PM ASSOCIATE CHIEF NURSE Plan of Treatment Health Maintenance Due Date Last Done Comments Hepatitis C Virus (HCV) Screening 1970 TdaP Immunization 1970 Hepatitis B Immunization (1 of 3 - 19+ 3-dose series) 1989 Pneumococcal Immunization (5 0+ years) (1 of 2 - PCV) 1989 Pap Smear 09/05/1991 Cervical Cancer Screening (CCS) 2000 HPV/Cotest 2000 Cologuard 09/05/2015 Colonoscopy 09/05/2015 Colorectal Cancer Screening 09/05/2015 Immunochemical Fecal Occult Blood 09/05/2015 Zoster Immunization (1 of 2) 2020 SARS-COV-2 Immunization ( - season) 2023 Influenza Immunization (#1) 2024 Respiratory Syncytial Virus (RSV) Immunization (Adult) (1 - 1-dose 75+ series) 2045 Mammogram Discontinued 12/25/2017 Human Papillomavirus (HPV) Immunization Aged Out No longer eligible b ased on patient's age to complete this topic Meningococcal Immunization (ACWY) Aged Out No longer eligible based on patient's age to complete this topic Rotavirus Immunization Aged Out No lo nger eligible based on patient's age to complete this topic Insurance MEDICAID [facility] Care Teams Band Booker Relationship Specialty Start Date End Date Shwetha Medina MD [address] [place] [address] PCP - General Internal Medicine 03/21/18
--- OUTSIDE RECORDS SUMMARY | 2024-09-30 10:40 | XMS_ITS | Clinical Summary ---
Author Organization [facility] Address [facility] [place] [address] Care Team Providers Care Regional Education Coordinator Name Role Phone Radha Griffiths Primary Care Provider [phone] Allergies Active Allergy Reactions Criticality Noted Date [...] 6:02 AM CDT Height 160 cm (5' 3) 10/29/2023 6:02 AM CDT Body Mass Index 28.66 10/29/2023 6:02 AM CDT Plan of Treatment Health Maintenance Due Date Last Done Comments Cervical Cancer Screening 1970 Colon Cancer Screening-Colonoscopy 1970 Depression Screening 1970 Hepatitis C Screening 1970 Hepatitis B Screening 1988 Regular Well Visit/Exam 18-64 1988 Pneumococcal vaccine <65 (1 of 2 - PCV) 1989 Zoster Vaccine (1 of 2) 1989 Breast Cancer Screening-Mammogram 11/23/2023 023 Influenza Vaccine (#1) 2024 DTaP/Tdap/Td Vaccine (2 - Td or Tdap) 02/18/202502/2015 Medical Devices Implanted Type Area Combination Window Installer Device Identifier Shelf Expiration Date Model / Serial / Lot Cage-Lumbar Spine Cage Back Marker 2 Or 3 Left: Breast Insurance [facility] Care Teams Regional Education Coordinator Relationship Specialty Start Date End Date Radha Griffiths PA [address] [place] [address] PCP - General Physician Senior Warehouse Clerk 10/24/22
--- OUTSIDE RECORDS SUMMARY | 2024-09-30 10:40 | XMS_ITS | Clinical Summary ---
Author Organization [facility] Address [address] [place] [address] Care Team Providers Care Web Application Dev Specialist Name Role Phone Shwetha Medina MD Primary Care Provider [phone] Allergies Active Allergy Reactions Criticality Noted Date [...] Encounters Date Type Department Care Team Description 09/22/2024 External Device Data [facility]STRACTION Provider, Abstract 09/02/2024 External Device Data [facility] Provider, Abstract 09/01/2024 External Device Data [facility] Provider, Abstract 08/04/2024 External Device Data [facility] [place] Provider, Abstract 07/09/2024 External Device Data [facility] [place] Provider, Abstract 07/07/2024 External Device Data [facility] Provider, Abstract from Last 3 Months Family History Medical [...] on file Legal Sex Female 5:26 PM SERVICE CASHIER Gender Identity Not on file Sexual Orientation Not on file Last Filed Vital Signs Vital Sign Reading Time Taken Comments Blood Pressure 123/80 03/13/2024 10:40 AM SERVICE CASHIER Pulse 97 03/13/2024 10:40 AM SERVICE CASHIER Temperature 36.7 C (98.1 F) 03/13/2024 10:40 AM SERVICE CASHIER Respiratory Rate 17 03/13/2024 10:40 AM SERVICE CASHIER Oxygen Saturation 95% 03/13/2024 10:40 AM SERVICE CASHIER Inhaled Oxygen Concentration - - Weight 73 kg (161 lb) 03/13/2024 10:40 AM SERVICE CASHIER Height 160 cm (5' 3) 06/20/2023 8:55 AM CDT Body Mass Index 28.52 06/20/2023 8:55 AM CDT Plan of Treatment Upcoming Encounters Date Type Department Care Team (Late st Contact Info) Description 12/11/2024 12:30 PM CDT Office Visit [facility] [place] Oncology and Hematology - [place] [address] [facility] [address] [place] [address] Brian Boston MD [address] [facility] [address] [place] [address] Health Maintenance Due Date Last [...] (1 of 2) 2020 INFLUENZA VACCINE (#1) 2024 BREAST CANCER SCREENING 12/03/2024 12/04/19 24, 03/27/2019, [...] MEDICARE PART A AND B MEDICAID [place] MEDICARE PART A AND B [place]ID [place] Care Teams Web Application Dev Specialist Relationship Specialty Start Date End Date Shwetha Medina MD [address] [place] [phone] PCP - General Internal Medicine 01/01/18
[2024-09-30 11:02] LABS: Hematocrit 32.9 % (37.0-47.0); Hemoglobin 11.6 g/dL (12.0-15.0); Mean Corpuscular HGB Conc 35.3 g/dl (32-36); Mean Corpuscular Hemoglobin 41.1 pg (26-34); Mean Corpuscular Volume 116.7 fl (80-100); Platelet Count Result 194 k/mm3 (150-375); Red Blood Count 2.82 M/mm3 (4.2-5.4); White Blood Count 10.6 K/mm3 (4.5-10.0)
[2024-09-30 13:50] LABS: INR 1.1; Prothrombin Time 14.8 Seconds (11.1-14.7)
[2024-09-30 13:59] LABS: Alanine Aminotransferase 15 U/L (6-35); Albumin Level 4.0 g/dL (3.5-5.1); Alkaline Phosphatase 270 U/L (38-126); Anion Gap 11 mmol/L (4-12); Aspartate Amino Transferase 75 U/L (14-36); Bilirubin,Total 2.4 mg/dL (0.2-1.3); Blood Urea Nitrogen 7 mg/dL (7-17); Calcium 8.9 mg/dL (8.4-10.2); Carbon Dioxide 24 mmol/L (22-30); Chloride 103 mmol/L (98-107); Estimated Glomerular Filt Rate > 60; Glucose 140 mg/dL (65-110); Potassium 3.3 mmol/L (3.4-5.0); Sodium 138 mmol/L (137-145); Total Protein 8.1 g/dL (6.3-8.2)
[2024-09-30 14:00] LABS: Iron 168 ug/dL (37-170)
[2024-09-30 14:11] LABS: Immunoglobulin A 430 mg/dL (70-400)
[2024-09-30 14:15] LABS: Percent Iron Saturation 52 % (20-50)
[2024-09-30 14:35] LABS: Hepatitis B Surface Antigen Negative (Negative)
[2024-09-30 14:40] LABS: HAV RESULT Negative (Negative); Hepatitis B Core IgM Result Negative (Negative)
[2024-09-30 17:21] LABS: Ferritin 240.00 ng/mL (11.1-264)
[2024-10-01 07:09] LABS: GGT 1120 IU/L (0-60)
[2024-10-01 15:09] LABS: ANA by IFA Rfx Titer/Pattern Negative (.)
[2024-10-04 16:07] LABS: Total Bile Acids 29 umol/L (.)
== END 2024-09-30 10:25 | disposition home or self-care (01) ==
LOC: ANHLAB 10:25
PROVIDERS: PCP Physician Assistant; Visit Provider Nurse Practitioner Family
DX: R74.01 Elevation of levels of liver transaminase levels (principal); R17 Unspecified jaundice
CPT/HCPCS: 36415; 80053; 80074; 82103; 82390; 82542; 82728; 82784; 82977; 83540; 83550; 83915; 85027; 85610; 86015; 86038; 86376; 86381

== ENCOUNTER 2024-10-14 08:40 | Outpatient (CLI) | payer MEDICARE, MEDICAID, SELFPAY ==
--- OUTSIDE RECORDS SUMMARY | 2022-11-01 18:59 | XMS_ITS | Continuity of Care Document ---
Author Organization [facility] Address [address] [place] [address] Phone Care Team Providers Care Technology Strategist Name Role Phone Interface, HMaint Import Unavailable Unavail able Medications Medication Instructions Dosage Effective Dates (start - stop) Status Comments No Drug Therapy Prescribed Advance Directives Directive Yes / No Effective Date File Name No Information Encounters Encounter Description Practice Location Reason(s) For Visit Diagnoses Date Provider Providers Copied on Encounter [facility], [address] [place] [address], [id number], [place] tel:[phone] [facility] No Information Interface HMaint Import. . Family History Family Member Type Diagnosis Age At Onset No Information Payers Payer name Insurance type Covered republican ID Authoriza tion(s) No Information Social History Type Description Quantity Date Captured Comments Sex Female Smoking Status No Information Chief Complaint And Reason For Visit No Information History Of Present Illness Encounter Date Complaint History Of Prese nt Illness No Information Medications Administered Medication Instructions Dosage Effective Dates (start - stop) Status Comments No Drug Therapy Prescribed Instructions Date Instruction Additional Infor mation No Information Assessments Type Assessment Date No Information
--- NOTE | ~2024-10-14 | US_ITS ---
US abdomen limited INDICATION: Fatty liver PROCEDURE: Realtime right upper abdominal ultrasound. COMPARISON: Ultrasound dated 07/19/2022 FINDINGS: The pancreas is normal without focal mass or pancreatic ductal dilation. Liver is enlarged measuring 20 cm. There is diffuse fatty infiltration of the liver. There is normal directional flow in the portal vein. The gallbladder is normal without stones, gallbladder wall thickening or pericholecystic fluid. Common bile duct measures 4 mm. No sonographic Narayan's sign. IMPRESSION: 1: Hepatomegaly with diffuse fatty infiltration of the liver. Reviewed, dictated and finalized at location O.
--- OUTSIDE RECORDS SUMMARY | 2024-10-14 08:50 | XMS_ITS | Clinical Summary ---
Author Organization [facility] Address [facility] [place] [address] Care Team Providers Care Air Cargo Ground Operations Supervisor Name Role Phone Radha Griffiths Primary Care Provider [phone] Allergies Active Allergy Reactions Criticality Noted Date [...] Tdap) 02/18/202502/2015 Medical Devices Implanted Type Area Operating Room Nurse Device Identifier Shelf Expiration Date Model / Serial / Lot Cage-Lumbar Spine Cage Back Marker 2 Or 3 Left: Breast Insurance [facility] MEDICARE Care Teams Air Cargo Ground Operations Supervisor Relationship Specialty Start Date End Date Radha Griffiths PA [address] [place] [address] PCP - General Physician Drapery Rod Assembler 10/24/22
--- OUTSIDE RECORDS SUMMARY | 2024-10-14 08:50 | XMS_ITS | Clinical Summary ---
Author Organization [facility] Address [address] [place] [address] Care Team Providers Care Humane Officer Name Role Phone Shwetha Medina MD Primary Care Provider [phone] Allergies Active Allergy Reactions Criticality Noted Date [...] on file Legal Sex Female 5:26 PM CONTACT CENTER REP Gender Identity Not on file Sexual Orientation Not on file Last Filed Vital Signs Vital Sign Reading Time Taken Comments Blood Pressure 123/80 03/13/2024 10:40 AM CONTACT CENTER REP Pulse 97 03/13/2024 10:40 AM CONTACT CENTER REP Temperature 36.7 C (98.1 F) 03/13/2024 10:40 AM CONTACT CENTER REP Respiratory Rate 17 03/13/2024 10:40 AM CONTACT CENTER REP Oxygen Saturation 95% 03/13/2024 10:40 AM CONTACT CENTER REP Inhaled Oxygen Concentration - - Weight 73 kg (161 lb) 03/13/2024 10:40 AM CONTACT CENTER REP Height 160 cm (5' 3) 06/20/2023 8:55 AM CDT Body Mass Index 28.52 06/20/2023 8:55 AM CDT Plan of Treatment Upcoming Encounters Date Type Department Care Team (Late st Contact Info) Description 12/11/2024 12:30 PM CDT Office Visit [facility] Oncology and Hematology - [place] [address] [place] [address] Brian Boston MD [address] [facility] [address] [place] [address] Health Maintenance Due Date Last [...] [place] PART A [place] B [place] Care Teams Humane Officer Relationship Specialty Start Date End Date Shwetha Medina MD [address] [place] [address] PCP - General Internal Medicine 01/01/18
--- OUTSIDE RECORDS SUMMARY | 2024-10-14 08:50 | XMS_ITS | Clinical Summary ---
Author Organization [facility] Address [address] [place] [address] Care Team Providers Care [employer] Name Role Phone Radha Griffiths PA-C Primary Care Provider [phone] Source Comments [facility],non-owned Affiliates and Associated Physician Practices is amultiple site organization consisting of ambulatory clinics and hospital sitesin [place], [place], [place] and [place]. This disclosure is being madepursuant to the Care Everywhere program and may not contain all information available regarding this patient. Last updated 17.[facility] Allergies Active Allergy Reactions Criticality Noted Date [...] on file Legal Sex Female 10:58 AM BUY BOAT OPERATOR Gender Identity Not on file Sexual Orientation Not on file Last Filed Vital Signs Vital Sign Reading Time Taken Comments Blood Pressure 161/93 04/01/2023 8:24 AM BUY BOAT OPERATOR Pulse 91 04/01/2023 8:24 AM BUY BOAT OPERATOR Temperature 36.9 C (98.4 F) 01/07/2023 8:33 AM BUY BOAT OPERATOR Respiratory Rate 18 01/07/2023 8:33 AM BUY BOAT OPERATOR Oxygen Saturation 96% 04/01/2023 8:24 AM BUY BOAT OPERATOR Inhaled Oxygen Concentration - - Weight 72.6 kg (160 lb) 04/01/2023 8:24 AM BUY BOAT OPERATOR Height 160 cm (5' 3) 04/01/2023 8:24 AM BUY BOAT OPERATOR Body Mass Index 28.34 04/01/2023 8:24 AM BUY BOAT OPERATOR Plan of Treatment Health Maintenance Due [...] Subscriber ID:Not on file (Home) Address: [address] [address] Payer ID:Not on file Group ID:Not on file Type:Self Pay Address: [place], [place] SELF PAY NO INSURANCE Member Subscriber Plan / Payer (Ef fective for All Dates) Name:Leticia Phipps Member ID:Not on file Relation to Subscriber:Not on file Name:LETICIA PHIPPS Subscriber ID:Not on file Address: [address] [address] Payer ID:Not on file Group ID:Not on file Type:Self Pay Address: [place] SELF PAY NO INSURANCE Member Subscriber Plan / Payer (Ef fective for All Dates) Name:Leticia Phipps Member ID:Not on file Relation to Subscriber:Not on file Name:LETICIA PHIPPS Subscriber ID:Not on file Address: [address] [place] [address] Payer ID:Not on file Group ID:Not on file Type:Self Pay Address: [place] SELF PAY NO INSURANCE Member Subscriber Plan / Payer (Ef fective for All Dates) Name:Leticia Phipps Member ID:Not on file Relation to Subscriber:Not on file Name:LETICIA PHIPPS Subscriber ID:Not on file Address: [address] [place] [address] Payer ID:Not on file Group ID:Not on file Type:Self Pay Address: [place], [place] Care Teams [employer] Relationship Specialty Start Date End Date Radha Griffiths PA-C [address] [place] [phone] PCP - General 03/28/22
--- OUTSIDE RECORDS SUMMARY | 2024-10-14 08:50 | XMS_ITS | Clinical Summary ---
Author Organization [facility] Address [address] [place] [address] Phone Care Team Providers Care Block Handler Name Role Phone Shwetha Medina MD Primary [...] Date Smoking Tobacco: Every Day Cigarettes 0.5 36.7 Started: 1988 Smokeless Tobacco: Never Alcohol Use Standard Drinks/Week Comments Yes 0 (1 standard drink = 0.6 oz pur e alcohol) daily Comments Unknown Sex and Gender Information Value Date Recorded Sex Assigned at Not on file Legal Sex Female 11:21 AM DYE EXPERT Gender Identity Not on file Sexual Orientation Not on file Last Filed Vital Signs Vital Sign Reading Time Taken Comments Blood Pressure 136/90 03/21/2018 2:10 PM DYE EXPERT Pulse 106 03/21/2018 2:10 PM DYE EXPERT Temperature 37.2 C (99 F) 03/21/2018 2:10 PM DYE EXPERT Respiratory Rate 18 03/21/2018 2:10 PM DYE EXPERT Oxygen Saturation 98% 03/21/2018 2:10 PM DYE EXPERT Inhaled Oxygen Concentration - - Weight 69.5 kg (153 lb 4.8 oz) 03/21/2018 2:10 P M DYE EXPERT Height 158.8 cm (5' 2.5) 03/21/2018 2:10 PM DYE EXPERT Body Mass Index 27.59 03/21/2018 2:10 PM DYE EXPERT Plan of Treatment Health Maintenance Due Date Last Done Comments Hepatitis C Virus (HCV) Screening 1970 TdaP Immunization 1970 Hepatitis B Immunization (1 of 3 - 19+ 3-dose series) 1989 Pap Smear 09/05/1991 Cervical Cancer Screening (CCS) 2000 HPV/Cotest 2000 Cologuard 09/05/2015 Colonoscopy 09/05/2015 Colorectal Cancer Screening 09/05/2015 Immunochemical Fecal Occult Blood 09/05/2015 Pneumococcal Immunization (5 0+ years) (1 of 1 - PCV) 2020 Zoster Immunization (1 of 2) 2020 SARS-COV-2 Immunization (1 - season) 2023 Influenza Immunization (#1) 2024 [...] Insurance [employer] Care Teams Block Handler Relationship Specialty Start Date End Date Shwetha Medina MD [address] [place] [address] PCP - General Internal Medicine 03/21/18
== END 2024-10-14 08:41 | disposition home or self-care (01) ==
PROVIDERS: PCP Physician Assistant; Visit Provider Nurse Practitioner Family
DX: K76.0 Fatty (change of) liver, not elsewhere classified (principal); R74.01 Elevation of levels of liver transaminase levels; R74.8 Abnormal levels of other serum enzymes
CPT/HCPCS: 76705

== ENCOUNTER 2024-12-08 10:05 | Outpatient (CLI) | payer MEDICARE, MEDICAID, SELFPAY ==
[2024-12-08 10:17] LABS: Hematocrit 36.1 % (37.0-47.0); Hemoglobin 12.3 g/dL (12.0-15.0); Immature Granulocyte Percent A 0.4 % (0-0.5); Lymphocytes Absolute Auto 1.78 K/mm3 (0.9-3.2); Mean Corpuscular HGB Conc 34.1 g/dl (32-36); Mean Corpuscular Hemoglobin 39.2 pg (26-34); Mean Corpuscular Volume 115.0 fl (80-100); Nucleated Red Blood Cells Absolute Auto 0.000 K/mm3 (0.0-0.012); Nucleated Red Blood Cells Perc 0.0 % (0.0-0.2); Platelet Count Result 227 k/mm3 (150-375); Red Blood Count 3.14 M/mm3 (4.2-5.4); White Blood Count 15.1 K/mm3 (4.5-10.0)
[2024-12-08 16:25] LABS: Iron 146 ug/dL (37-170)
[2024-12-08 16:34] LABS: Alanine Aminotransferase 20 U/L (6-35); Albumin Level 4.1 g/dL (3.5-5.1); Alkaline Phosphatase 300 U/L (38-126); Anion Gap 11 mmol/L (4-12); Aspartate Amino Transferase 65 U/L (14-36); Bilirubin,Total 1.7 mg/dL (0.2-1.3); Blood Urea Nitrogen 13 mg/dL (7-17); Calcium 8.9 mg/dL (8.4-10.2); Carbon Dioxide 22 mmol/L (22-30); Chloride 105 mmol/L (98-107); Estimated Glomerular Filt Rate > 60; Glucose 112 mg/dL (65-110); Potassium 3.7 mmol/L (3.4-5.0); Sodium 138 mmol/L (137-145); Total Protein 7.8 g/dL (6.3-8.2)
[2024-12-08 16:35] LABS: Percent Iron Saturation 44 % (20-50)
[2024-12-08 17:07] LABS: Ferritin 293.00 ng/mL (11.1-264)
[2024-12-08 17:45] LABS: Vitamin B12 956.0 pg/mL (239-931)
== END 2024-12-08 10:06 | disposition home or self-care (01) ==
LOC: ANHLAB 10:06
PROVIDERS: PCP Physician Assistant; Visit Provider Internal Medicine Hematology & Oncology
DX: D64.9 Anemia, unspecified (principal)
CPT/HCPCS: 36415; 80053; 82607; 82728; 82746; 83540; 83550; 85025

== ENCOUNTER 2025-01-04 09:45 | Outpatient (CLI) | payer MEDICARE, MEDICAID, SELFPAY ==
--- NOTE | ~2025-01-04 | XR_ITS ---
XR lumbar spine 2-3V Indication: LOW BACK PAIN, SPINAL FUSION 2019 Comparison: None Findings: Posterior fixation L4 on L5, no fracture identified. Moderate loss of disc at L4-5 and L5-S1. Soft tissues unremarkable Impression: No acute abnormality. Reviewed, dictated and finalized at location P. SAND MOLDER Impression: No acute abnormality.
== END 2025-01-04 09:46 | disposition home or self-care (01) ==
PROVIDERS: PCP Physician Assistant; Visit Provider Physician Assistant
DX: M54.59 Other low back pain (principal); G89.29 Other chronic pain
CPT/HCPCS: 72100

== ENCOUNTER 2025-01-22 12:07 | Outpatient (CLI) | payer MEDICARE, MEDICAID, SELFPAY ==
--- NOTE | ~2025-01-22 | US_ITS ---
PROCEDURE(S): US breast RT limited INDICATION(S): R92.8 - Other abnormal and inconclusive findings on diagnostic imaging COMPARISON(S): MR from June 11. Older breast imaging studies dating back to 17 04 TECHNIQUE: Grayscale and color Doppler imaging. FINDINGS: Sonography through the 4:00 right breast demonstrates a bilobed cyst with a maximum dimension of 9 mm. This is consistent with an unenhancing mass on MR. IMPRESSION: Benign-appearing cyst at 4:00 on the right. The patient should have follow-up MR in May. BI-RADS 3 - Probably benign - short-term follow-up is recommended. Reviewed, dictated and finalized at location B. E DERRICKMAN AND RIGGER IMPRESSION: Benign-appearing cyst at 4:00 on the right. The patient should have follow-up M R in May. BI-RADS 3 - Probably benign - short-term follow-up is recommended.
--- NOTE | ~2025-01-22 | MM_ITS ---
EXAMINATION: MM diagnostic tosha BI w ozzie HISTORY: Screening. Status post left lumpectomy/partial mastectomy. TECHNIQUE: Craniocaudal and mediolateral oblique 3-D tomosynthesis images were obtained and synthetic 2-D images were generated. CAD analysis was submitted and interpreted. COMPARISON: 2023 2022, and 2021. BREAST PARENCHYMAL COMPOSITION: Dense: The breasts are extremely dense FINDINGS: No suspicious masses are seen. There are no suspicious calcifications. Postop changes are seen on the left. No unexplained architectural distortion is seen. There are no skin or nipple abnormalities identified. There is no adenopathy seen on the images submitted. IMPRESSION: The previously described ultrasound/MR findings will be described on the ultrasound report. No mammographic evidence to suggest malignancy is seen. Follow-up with MR in May,, as per the ultrasound report. BI-RADS 3 - Probably benign - short-term follow-up is recommended. Reviewed, dictated and finalized at location B. [employer] IMPRESSION: The previously described ultrasound/MR findings will be described on the ultras ound report. No mammographic evidence to suggest malignancy is seen. Follow-up with MR in May,, as per the ultrasound report. BI-RADS 3 - Probably benign - short-term follow-up is recommended.
== END 2025-01-22 12:08 | disposition home or self-care (01) ==
LOC: ANHFOHIMG 12:09
PROVIDERS: PCP Physician Assistant; Visit Provider Internal Medicine Hematology & Oncology
DX: N63.15 Unspecified lump in the right breast, overlapping quadrants (principal); R92.8 Other abnormal and inconclusive findings on diagnostic imaging of breast; N60.12 Diffuse cystic mastopathy of left breast
CPT/HCPCS: 76642; 77062; 77066; G0279